=== PATIENT | male | born 1960 | race Caucasian/White ===

== ENCOUNTER 2020-03-30 11:08 | Outpatient (REF) | payer MEDICARE, MEDICAID, SELFPAY ==
--- NOTE | 2020-04-01 09:54 | MHC.AU.P13 ---
Adult Audiological Evaluation Date of Visit: 03/30/20 Reason for Appointment: Patient has noticed difficulty hearing others in person, as well as on the television and the phone. 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 Has hearing been tested previously?: Previous Hearing Test Results: Hearing Handicap Inventory HHIE SCORE: 14 Based on HHIE score, patient has: Mild to moderate perceived hearing handicap Ear History: Ear Deformity: None Reported Recent Ear Drainage: None Reported Recent Ear Pain: None Reported Family History of Hearing Loss?: Yes: Grandfather, Aunt Recent Ear Infections: None Reported Ear Infections in Childhood: Both Ears History of Ear Wax Buildup: None Reported Previous Ear Surgery: None Reported Bothersome Tinnitus/Ringing/Noises in Ears: None Reported Ear used on the phone: Right Ear Blocked/Full Sensation in Ear(s): None Reported History of Occupational Noise Exposure: Yes History: History: No Medical History: Medical History: High Blood Pressure Otoscopy: Right Ear: Unremarkable Left Ear: Unremarkable Tympanometry: Right Ear: Normal Middle Ear System (Type A) Left Ear: Normal Middle Ear System (Type A) Screening Ipsilateral Reflex Probe Right Ear: Screening Ipsilateral Reflex Present at 1000 Hz Probe Left Ear: Screening Ipsilateral Reflex Present at 1000 Hz Otoacoustic Emissions: Frequency Range Used: 1.6-8 kHz Right Ear Results: Present 1.6-4.0 kHz, reduced/absent from 4.0-8.0 kHz Analysis: Reduced/Absent emissions suggest cochlear dysfunction Left Ear Results: Present 1.6-4.0 kHz, reduced/absent from 4.0-8.0 kHz Analysis: Reduced/Absent emissions suggest cochlear dysfunction Hearing Evaluation: Transducer(s) Used: Insert Earphones Method: Conventional Audiometry Stimuli Used: Pure Tones Right Ear: Description of Hearing: Overall normal hearing Left Ear: Description of Hearing: Overall normal hearing. Mild hearing loss at 8000 Hz Speech Recognition Threshold (SRT): Method Used: Recorded Lists Stimuli Used: Spondee Words Right Ear: 10 Left Ear: 15 Word Discrimination: Method: Recorded Lists Word Lists Used: NU-6 Right Ear: 100% at 55 dBHL Left Ear: 100% at 55 dBHL Most Comfortable Level (MCL): Right Ear: 55 dBHL Left Ear: 55 dBHL QuickSIN: SNR loss of 3 dB, which is within normal range Recommendations: Recommendations: Audiological re-evaluation in 2 years, or sooner if changes are noted. Diagnosis: Primary Diagnosis: H93.293 Abnormal Auditory Perception Services Performed: Services Performed: Comprehensive Audiological Evaluation (CPT 75896) Limited Otoacoustic Emissions (CPT 55793) Tympanometry (CPT 58802) Signature: Provider: Fazraneh Parr, CCC-A
== END 2020-03-30 11:09 | disposition home or self-care (01) ==
LOC: HO.SH 11:08
PROVIDERS: Visit Provider Internal Medicine
DX: H93.293 Other abnormal auditory perceptions, bilateral (principal)
CPT/HCPCS: 92557; 92567; 92587

== ENCOUNTER 2020-10-10 12:05 | Outpatient (REF) | payer OTHER, SELFPAY ==
[2020-10-10 14:06] LABS: Basophils Absolute Auto 0.1 X10*3/uL (0.0-0.2); Basophils Percent Auto 1.4 % (0-2); Eosinophils Absolute Auto 0.5 X10*3/uL (0.0-0.4); Eosinophils Percent Auto 8.3 % (0-4); Hemoglobin 15.7 g/dl (14.0-18.0); Imm Gran Abs Auto 0.01 X10*3/uL (0.00-0.03); Imm Gran Pct Auto 0.2 % (0.0-0.4); Lymphocytes Absolute Auto 1.8 X10*3/uL (1.2-4.9); Lymphocytes Percent Auto 28.8 % (20-40); MANUAL DIFF FLAG NO; Mean Corpuscular HGB Conc 34.1 g/dl (31.0-36.0); Mean Corpuscular Hemoglobin 33.5 pg (27.0-33.0); Mean Corpuscular Volume 98.3 fL (80-98); Mean Platelet Volume 9.7 fL (9.4-12.4); Monocytes Absolute Auto 1.3 X10*3/uL (0.1-1.2); Neutrophils Absolute Auto 2.6 X10*3/uL (2.0-8.3); Neutrophils Percent Auto 41.3 % (45-73); Platelet Count 323 X10*3/uL (160-400); Red Blood Count 4.68 X10*6/uL (4.60-5.80); Red Cell Distribution Width 12.9 % (11.0-16.0); White Blood Count 6.3 X10*3/uL (4.8-10.8)
[2020-10-10 14:41] LABS: Alanine Aminotransferase 56 U/L (0-40); Albumin Level 4.5 g/dL (3.5-5.0); Alkaline Phosphatase 106 U/L (39-117); Anion Gap 16 (12-20); Aspartate Amino Transferase 54 U/L (5-37); Bilirubin Total 1.1 mg/dL (0.0-1.0); Blood Urea Nitrogen 8 mg/dL (9-16); Calcium 10.1 mg/dL (8.4-10.2); Carbon Dioxide 25 mmol/L (22-29); Chloride 100 mmol/L (96-108); Cholesterol 249 mg/dL; Estimated Glomerular Filt Rate > 60; Glucose Fasting 103 mg/dL (60-99); HDL Cholesterol 58 mg/dL; LDL Cholesterol Calculated 174 mg/dl; Potassium 4.5 mmol/L (3.3-5.1); Sodium 136 mmol/L (135-145); Total Protein 7.9 g/dL (6.5-8.0); Triglycerides 85 mg/dL
== END 2020-10-10 12:06 | disposition home or self-care (01) ==
LOC: HO.LAB 12:05
PROVIDERS: PCP Internal Medicine; Visit Provider Internal Medicine
DX: I10 Essential (primary) hypertension (principal); E29.1 Testicular hypofunction; K21.9 Gastro-esophageal reflux disease without esophagitis; N40.0 Benign prostatic hyperplasia without lower urinary tract symptoms; F41.9 Anxiety disorder, unspecified; E66.3 Overweight
CPT/HCPCS: 36415; 80053; 80061; 85025

== ENCOUNTER 2020-12-01 10:08 | Outpatient (REF) | payer OTHER, SELFPAY ==
--- NOTE | 2020-12-01 11:34 | EMG_ITS ---
Left median and ulnar motor and sensory studies were performed. Left radial sensory study was performed and paraspinal muscles were tested. IMPRESSION: 1. Oxmh-rw-egamrjoi left median neuropathy across carpal tunnel. 2. Pozt-fy-emoyxwmo left ulnar neuropathy across cubital tunnel. MD GWEN Hinton/CESAR / [id number]
== END 2020-12-01 10:09 | disposition home or self-care (01) ==
LOC: HO.NEURO 10:08
PROVIDERS: Visit Provider Internal Medicine
DX: R20.0 Anesthesia of skin (principal)
CPT/HCPCS: 95886; 95909

== ENCOUNTER 2021-01-11 10:23 | Outpatient (REF) | payer OTHER, SELFPAY ==
[2021-01-11 11:14] LABS: Estimated Average Glucose 117 mg/dL; Hemoglobin A1c % 5.7 %
[2021-01-11 11:26] LABS: Alanine Aminotransferase 40 U/L (0-40); Albumin Level 4.5 g/dL (3.5-5.0); Alkaline Phosphatase 87 U/L (39-117); Anion Gap 12 (12-20); Aspartate Amino Transferase 43 U/L (5-37); Bilirubin Total 1.2 mg/dL (0.0-1.0); Blood Urea Nitrogen 6 mg/dL (9-16); Calcium 9.9 mg/dL (8.4-10.2); Carbon Dioxide 26 mmol/L (22-29); Chloride 100 mmol/L (96-108); Cholesterol 180 mg/dL; Estimated Glomerular Filt Rate > 60; Glucose Random 106 mg/dL (60-115); HDL Cholesterol 53 mg/dL; LDL Cholesterol Calculated 104 mg/dl; Potassium 4.4 mmol/L (3.3-5.1); Sodium 134 mmol/L (135-145); Total Protein 7.7 g/dL (6.5-8.0); Triglycerides 118 mg/dL
[2021-01-15 14:02] LABS: Testosterone, Free 112.6 pg/mL (35.0-155.0); Testosterone, Total 674 ng/dL (250-1100)
== END 2021-01-11 10:24 | disposition home or self-care (01) ==
LOC: HO.LAB 10:23
PROVIDERS: PCP Internal Medicine; Visit Provider Internal Medicine
DX: R79.89 Other specified abnormal findings of blood chemistry (principal); E78.00 Pure hypercholesterolemia, unspecified; R73.01 Impaired fasting glucose
CPT/HCPCS: 36415; 80053; 80061; 83036; 84402; 84403

== ENCOUNTER 2021-01-18 11:43 | Outpatient (REF) | payer OTHER, SELFPAY ==
--- NOTE | ~2021-01-18 | XR_ITS ---
EXAMINATION: XR HIP, RIGHT CLINICAL INFORMATION: Pain COMPARISON: None TECHNIQUE: Two views of the right hip. FINDINGS: Bone alignment is normal. No fracture or dislocation is seen. There is mild arthritis of the right hip joint with small osteophytes. Soft tissues are unremarkable. XR/XR hip RT min 2V IMPRESSION: Mild right hip arthritis.
== END 2021-01-18 11:44 | disposition home or self-care (01) ==
LOC: HO.XRAY 11:43
PROVIDERS: PCP Internal Medicine; Visit Provider Internal Medicine
DX: N40.1 Benign prostatic hyperplasia with lower urinary tract symptoms (principal); N13.8 Other obstructive and reflux uropathy; E29.1 Testicular hypofunction; N52.9 Male erectile dysfunction, unspecified; Z79.899 Other long term (current) drug therapy; M25.551 Pain in right hip
CPT/HCPCS: 73502; 99212

== ENCOUNTER → 2021-04-12 08:21 | Outpatient (BNVA) | payer OTHER, SELFPAY | PROVIDERS: PCP Internal Medicine; Visit Provider Internal Medicine | DX: M81.0 Age-related osteoporosis without current pathological fracture (principal); E29.1 Testicular hypofunction; E55.9 Vitamin D deficiency, unspecified | CPT/HCPCS: 99212 ==

== ENCOUNTER 2021-05-18 11:51 | Outpatient (REF) | payer OTHER, SELFPAY ==
[2021-05-18 14:15] LABS: Alanine Aminotransferase 56 U/L (0-40); Albumin Level 4.5 g/dL (3.5-5.0); Alkaline Phosphatase 85 U/L (39-117); Anion Gap 14 (12-20); Aspartate Amino Transferase 35 U/L (5-37); Bilirubin Total 0.7 mg/dL (0.0-1.0); Blood Urea Nitrogen 10 mg/dL (9-16); Calcium 9.5 mg/dL (8.4-10.2); Carbon Dioxide 25 mmol/L (22-29); Chloride 103 mmol/L (96-108); Estimated Glomerular Filt Rate > 60; Glucose Random 108 mg/dL (60-115); Phosphorus 3.5 mg/dL (2.7-4.5); Potassium 4.1 mmol/L (3.3-5.1); Sodium 138 mmol/L (135-145); Total Protein 7.8 g/dL (6.5-8.0)
[2021-05-18 14:36] LABS: Free T4 (Free Thyroxine) 0.84 ng/dL (0.71-1.85); Thyroid Stimulating Hormone 0.75 uIU/mL (0.32-4.0)
[2021-05-21 07:32] LABS: Follicle Stimulating Hormone 7.7 mIU/mL (1.6-8.0); Lutenizing Hormone 5.3 mIU/mL (1.5-9.3)
[2021-05-22 15:32] LABS: Calcium (PTHI) 9.5 mg/dL (8.6-10.3); PTHI 44 pg/mL (14-64)
[2021-05-23 10:26] LABS: Sex Hormone Binding Globulin 31 nmol/L (22-77)
[2021-05-24 14:51] LABS: Testosterone, Free 51.5 pg/mL (35.0-155.0); Testosterone, Total 294 ng/dL (250-1100)
== END 2021-05-18 11:52 | disposition home or self-care (01) ==
LOC: HO.HMGCLDS 11:51
PROVIDERS: PCP Internal Medicine; Visit Provider Internal Medicine
DX: M81.0 Age-related osteoporosis without current pathological fracture (principal); E55.9 Vitamin D deficiency, unspecified
CPT/HCPCS: 36415; 80053; 82306; 83001; 83002; 83970; 84100; 84270; 84402; 84403; 84439; 84443

== ENCOUNTER 2021-05-19 10:27 | Outpatient (REF) | payer OTHER, SELFPAY ==
--- NOTE | ~2021-05-19 | MM_ITS ---
EXAMINATION: BONE DENSITOMETRY CLINICAL INDICATION: Age-related osteoporosis without current pathological fracture. COMPARISON: Baseline BD dated 01/06/2019, spine and left hip. TECHNIQUE: Using a Lumexis DXA System (software version: 13.1) manufactured by [employer], dual-energy x-ray absorptiometry was performed of the lumbar spine, left hip, and left forearm radius 33%. The images are of good technical quality. Summary results are attached. FINDINGS: AP SPINE L1-L2 (excluding L3 and L4): The data of L1-L4 has been changed to exclude the L3 and L4 vertebral bodies, because degenerative changes at these levels may cause overestimation of lumbar spine density. Current: BMD 0.828 g/cm2, Z-score -3.1, T-score -3.1, osteoporosis, 2.5% decrease from baseline (<5% change is not significant). Baseline: BMD 0.849 g/cm2. LEFT FEMUR, NECK: Current: BMD 0.818 g/cm2, Z-score -1.3, T-score -1.9, osteopenia. Baseline: BMD 0.806 g/cm2. LEFT FEMUR, TOTAL: Current: BMD 0.847 g/cm2, Z-score -1.5, T-score -1.8, osteopenia, 2.8% decrease from baseline (<5% change is not significant). Baseline: BMD 0.871 g/cm2. LEFT FOREARM RADIUS 33%: BMD 0.781 g/cm2, Z-score -1.8, T-score -2.1, osteopenia. IDENTIFIED RISK FACTORS: Osteoporosis, 3 or more alcohol drinks per day, recurrent falls, low calcium intake, history of fracture (adult), secondary osteoporosis. HISTORY OF FRACTURE: Ribs, tibia, foot. MEDICATIONS: Vitamin D, ERT/SERMS. MM/XR DEXA appendicular skeleton IMPRESSION: 1. DIAGNOSIS: Osteoporosis based on the lowest T-score value of -3.1 in the lumbar spine applying World Health Organization criteria. 2. 10-YEAR FRACTURE RISK PREDICTION, FRAX: According to the guidelines, FRAX calculation should only be performed on patients in the osteopenia bone density category. 3. Treatment Recommendations: NOF guidelines recommend consideration for treatment in postmenopausal women and men age 50 and older presenting with the following: -A hip or vertebral (clinical or morphometric) fracture. -T-score less than or equal to -2.5 at the femoral neck or spine after appropriate evaluation to exclude secondary causes. -Low bone mass at the hip or spine and a 10-year fracture probability by FRAX of greater than or equal to 3% for hip fracture or greater than or equal to 20% for major osteoporotic fracture based on the [place] adapted WHO algorithm. 4. Other Recommendations: All treatment decisions require clinical judgment and consideration of individual patient factors, including patient preferences, comorbidities, previous drug use, risk factors not captured in the FRAX model (e.g. frailty, falls, vitamin D deficiency, increased bone turnover, interval significant decline in bone density) and possible under or overestimation of fracture risk by FRAX. Additional medical evaluation for secondary cause of low bone mineral density may be appropriate. FUTURE SCAN RECOMMENDATION: People with diagnosed cases of osteoporosis or at high risk for fracture should have regular bone mineral density tests. For patients eligible for Medicare, routine testing is allowed once every 2 years. The testing frequency can be increased to one year for patients who have rapidly progressing disease, those who are receiving or discontinuing medical therapy to restore bone mass, or have additional risk factors.
== END 2021-05-19 10:28 | disposition home or self-care (01) ==
LOC: HO.MAMMO 10:27
PROVIDERS: PCP Internal Medicine; Visit Provider Internal Medicine
DX: M81.0 Age-related osteoporosis without current pathological fracture (principal); E83.51 Hypocalcemia; F10.20 Alcohol dependence, uncomplicated; Z91.81 History of falling; Z79.899 Other long term (current) drug therapy
CPT/HCPCS: 77081

== ENCOUNTER → 2021-05-24 08:51 | Outpatient (BNVA) | payer OTHER, SELFPAY | PROVIDERS: PCP Internal Medicine; Visit Provider Internal Medicine | DX: M81.0 Age-related osteoporosis without current pathological fracture (principal); E55.9 Vitamin D deficiency, unspecified | CPT/HCPCS: Q3014 ==

== ENCOUNTER 2021-07-24 13:57 | Outpatient (REF) | payer OTHER, SELFPAY ==
[2021-07-24 14:42] LABS: Hematocrit 46.9 % (42.0-52.0); Hemoglobin 15.9 g/dl (14.0-18.0); Mean Corpuscular HGB Conc 33.9 g/dl (31.0-36.0); Mean Corpuscular Hemoglobin 32.6 pg (27.0-33.0); Mean Corpuscular Volume 96.3 fL (80.0-98.0); Platelet Count 303 X10*3/uL (160-400); Red Blood Count 4.87 X10*6/uL (4.60-5.80); Red Cell Distribution Width 12.8 % (11.0-16.0); White Blood Count 6.6 X10*3/uL (4.8-10.8)
[2021-07-24 15:26] LABS: Prostate Specific Antigen 0.46 ng/mL (<0.05-4.0)
[2021-07-28 14:46] LABS: Testosterone, Total 390 ng/dL (250-1100)
== END 2021-07-24 13:58 | disposition home or self-care (01) ==
LOC: HO.LAB 13:57
PROVIDERS: Absent Provider Internal Medicine; PCP Internal Medicine; Visit Provider Urology
DX: Z12.5 Encounter for screening for malignant neoplasm of prostate (principal); N13.8 Other obstructive and reflux uropathy; N40.1 Benign prostatic hyperplasia with lower urinary tract symptoms; E29.1 Testicular hypofunction
CPT/HCPCS: 36415; 84153; 84403; 85027

== ENCOUNTER → 2021-07-26 11:02 | Outpatient (BNVA) | payer OTHER, SELFPAY | PROVIDERS: PCP Internal Medicine; Visit Provider Urology | DX: E29.1 Testicular hypofunction (principal) | CPT/HCPCS: 99212 ==

== ENCOUNTER → 2021-08-01 08:24 | Outpatient (BNVA) | payer OTHER, SELFPAY | PROVIDERS: PCP Internal Medicine; Visit Provider Urology | DX: Z71.89 Other specified counseling (principal) | CPT/HCPCS: 99211 ==

== ENCOUNTER → 2021-08-02 07:55 | Outpatient (BNVA) | payer OTHER, SELFPAY | PROVIDERS: PCP Internal Medicine; Visit Provider Internal Medicine | DX: M81.0 Age-related osteoporosis without current pathological fracture (principal); E55.9 Vitamin D deficiency, unspecified | CPT/HCPCS: 99212 ==

== ENCOUNTER 2021-08-02 09:09 | Outpatient (REF) | payer OTHER, SELFPAY ==
[2021-08-02 10:45] LABS: Alanine Aminotransferase 40 U/L (0-40); Albumin Level 4.6 g/dL (3.5-5.0); Alkaline Phosphatase 82 U/L (39-117); Anion Gap 13 (12-20); Aspartate Amino Transferase 35 U/L (5-37); Bilirubin Total 0.8 mg/dL (0.0-1.0); Blood Urea Nitrogen 6 mg/dL (9-16); Calcium 10.3 mg/dL (8.4-10.2); Carbon Dioxide 27 mmol/L (22-29); Chloride 101 mmol/L (96-108); Estimated Glomerular Filt Rate > 60; Glucose Random 95 mg/dL (60-115); Potassium 4.4 mmol/L (3.3-5.1); Sodium 137 mmol/L (135-145); Total Protein 8.1 g/dL (6.5-8.0)
[2021-08-02 11:10] LABS: Vitamin D 25-OH Total 35.3 ng/mL (>30)
[2021-08-03 15:07] LABS: Calcium (PTHI) 10.3 mg/dL (8.6-10.3); PTHI 28 pg/mL (14-64)
== END 2021-08-02 09:10 | disposition home or self-care (01) ==
LOC: HO.10HDL 09:09
PROVIDERS: Visit Provider Internal Medicine
DX: E55.9 Vitamin D deficiency, unspecified (principal); M81.0 Age-related osteoporosis without current pathological fracture
CPT/HCPCS: 36415; 80053; 82306; 83970

== ENCOUNTER 2021-08-12 11:09 | Outpatient (REF) | payer OTHER, SELFPAY ==
[2021-08-12 11:56] LABS: Creatinine, mg/dL 33.31
[2021-08-12 14:07] LABS: Total Volume 24 Hour Urine 3000 mL
[2021-08-14 16:56] LABS: Calcium, 24 Hr Urine 96 mg/24 h; Calcium/Creatinine Ratio 89 mg/g creat (30-210); Creatinine 24Hr Urine 1.08 g/24 h (0.50-2.15)
== END 2021-08-12 11:10 | disposition home or self-care (01) ==
LOC: HO.LNP 11:09
PROVIDERS: Visit Provider Internal Medicine
DX: M81.0 Age-related osteoporosis without current pathological fracture (principal)
CPT/HCPCS: 82340; 82570

== ENCOUNTER 2021-09-14 12:21 | Outpatient (REF) | payer OTHER, SELFPAY | END 2021-09-14 12:22 | disposition home or self-care (01) | LOC: HO.LAB 12:21 | PROVIDERS: PCP Internal Medicine; Visit Provider Internal Medicine | DX: Z13.89 Encounter for screening for other disorder (principal) ==

== ENCOUNTER 2021-09-25 11:12 | Outpatient (REF) | payer OTHER, SELFPAY ==
[2021-09-25 14:18] LABS: Alanine Aminotransferase 50 U/L (0-40); Albumin Level 4.5 g/dL (3.5-5.0); Alkaline Phosphatase 64 U/L (39-117); Anion Gap 13 (12-20); Aspartate Amino Transferase 46 U/L (5-37); Bilirubin Total 0.8 mg/dL (0.0-1.0); Blood Urea Nitrogen 5 mg/dL (9-16); Calcium 9.9 mg/dL (8.4-10.2); Carbon Dioxide 27 mmol/L (22-29); Chloride 102 mmol/L (96-108); Estimated Glomerular Filt Rate > 60; Glucose Random 84 mg/dL (60-115); Phosphorus 3.1 mg/dL (2.7-4.5); Potassium 4.8 mmol/L (3.3-5.1); Sodium 137 mmol/L (135-145); Total Protein 7.8 g/dL (6.5-8.0)
[2021-09-25 14:39] LABS: Vitamin D 25-OH Total 31.4 ng/mL (>30)
[2021-09-26 13:47] LABS: Calcium (PTHI) 9.8 mg/dL (8.6-10.3); PTHI 36 pg/mL (16-77)
== END 2021-09-25 11:13 | disposition home or self-care (01) ==
LOC: HO.HMGCLDS 11:12
PROVIDERS: PCP Internal Medicine; Visit Provider Internal Medicine
DX: M81.0 Age-related osteoporosis without current pathological fracture (principal); E55.9 Vitamin D deficiency, unspecified
CPT/HCPCS: 36415; 80053; 82306; 83735; 83970; 84100

== ENCOUNTER 2021-10-14 10:53 | Outpatient (REF) | payer OTHER, SELFPAY ==
[2021-10-14 11:05] LABS: MANUAL DIFF FLAG NO
[2021-10-14 11:38] LABS: Basophils Absolute Auto 0.1 X10*3/uL (0.0-0.2); Basophils Percent Auto 2.1 % (0-2); Eosinophils Absolute Auto 0.6 X10*3/uL (0.0-0.4); Eosinophils Percent Auto 12.1 % (0-4); Hematocrit 47.1 % (42.0-52.0); Imm Gran Abs Auto 0.01 X10*3/uL (0.00-0.03); Imm Gran Pct Auto 0.2 % (0.0-0.4); Lymphocytes Absolute Auto 1.9 X10*3/uL (1.2-4.9); Lymphocytes Percent Auto 36.2 % (20-40); Mean Corpuscular Hemoglobin 32.1 pg (27.0-33.0); Mean Corpuscular Volume 94.4 fL (80.0-98.0); Mean Platelet Volume 8.9 fL (9.4-12.4); Monocytes Absolute Auto 1.1 X10*3/uL (0.1-1.2); Neutrophils Absolute Auto 1.5 x10*3/uL (2.0-8.3); Neutrophils Percent Auto 28.4 % (45-73); Platelet Count 282 X10*3/uL (160-400); Red Blood Count 4.99 X10*6/uL (4.60-5.80); Red Cell Distribution Width 13.6 % (11.0-16.0); SCAN SMEAR FLAG 1; White Blood Count 5.1 X10*3/uL (4.8-10.8)
[2021-10-14 12:07] LABS: Alanine Aminotransferase 44 U/L (0-40); Albumin Level 4.4 g/dL (3.5-5.0); Alkaline Phosphatase 73 U/L (39-117); Anion Gap 14 (12-20); Aspartate Amino Transferase 51 U/L (5-37); Bilirubin Total 0.8 mg/dL (0.0-1.0); Blood Urea Nitrogen 5 mg/dL (9-16); Calcium 9.6 mg/dL (8.4-10.2); Carbon Dioxide 27 mmol/L (22-29); Chloride 100 mmol/L (96-108); Cholesterol 149 mg/dL; Estimated Glomerular Filt Rate > 60; Glucose Random 97 mg/dL (60-115); HDL Cholesterol 55 mg/dL; LDL Cholesterol Calculated 78 mg/dl; Potassium 5.3 mmol/L (3.3-5.1); Sodium 136 mmol/L (135-145); Total Protein 7.7 g/dL (6.5-8.0); Triglycerides 82 mg/dL
[2021-10-14 12:14] LABS: Estimated Average Glucose 108 mg/dL; Hemoglobin A1C 152.2107 umol/L; Hemoglobin A1c % 5.4 %
[2021-10-14 12:29] LABS: Free T4 (Free Thyroxine) 0.91 ng/dL (0.71-1.85); Thyroid Stimulating Hormone 0.85 uIU/mL (0.32-4.0)
[2021-10-16 10:30] LABS: Folate 3.5 ng/mL (> or = 4.0); Vitamin B12 381 pg/mL (200-900)
== END 2021-10-14 10:54 | disposition home or self-care (01) ==
LOC: HO.LAB 10:53
PROVIDERS: PCP Internal Medicine; Visit Provider Internal Medicine
DX: E78.00 Pure hypercholesterolemia, unspecified (principal); R73.01 Impaired fasting glucose
CPT/HCPCS: 36415; 80053; 80061; 82607; 82746; 83036; 84439; 84443; 85025

== ENCOUNTER 2021-10-25 11:51 | Outpatient (REF) | payer OTHER, SELFPAY ==
[2021-10-25 13:36] LABS: Blood Urea Nitrogen 7 mg/dL (9-16); Estimated Glomerular Filt Rate > 60
== END 2021-10-25 11:52 | disposition home or self-care (01) ==
LOC: HO.10HDL 11:51
PROVIDERS: Visit Provider Internal Medicine
DX: M81.0 Age-related osteoporosis without current pathological fracture (principal)
CPT/HCPCS: 36415; 82565; 84520

== ENCOUNTER 2021-10-27 12:01 | Outpatient (REF) | payer OTHER, SELFPAY | END 2021-10-27 12:02 | disposition home or self-care (01) | LOC: HO.MDS 12:01 | PROVIDERS: Visit Provider Internal Medicine | DX: M81.0 Age-related osteoporosis without current pathological fracture (principal) | CPT/HCPCS: 96365; J3489 ==

== ENCOUNTER → 2021-12-07 12:17 | Outpatient (BNVA) | payer OTHER, SELFPAY | PROVIDERS: PCP Internal Medicine; Visit Provider Physician Assistant | DX: D12.6 Benign neoplasm of colon, unspecified (principal) | CPT/HCPCS: Q3014 ==

== ENCOUNTER 2022-01-24 11:31 | Outpatient (REF) | payer OTHER, SELFPAY ==
[2022-01-24 13:47] LABS: Basophils Absolute Auto 0.1 X10*3/uL (0.0-0.2); Basophils Percent Auto 1.6 % (0-2); Eosinophils Absolute Auto 0.2 X10*3/uL (0.0-0.4); Eosinophils Percent Auto 3.4 % (0-4); Hematocrit 50.5 % (42.0-52.0); Hemoglobin 17.1 g/dl (14.0-18.0); Imm Gran Abs Auto 0.02 X10*3/uL (0.00-0.03); Imm Gran Pct Auto 0.4 % (0.0-0.4); Lymphocytes Absolute Auto 1.8 X10*3/uL (1.2-4.9); Lymphocytes Percent Auto 31.5 % (20-40); MANUAL DIFF FLAG SCAN; Mean Corpuscular HGB Conc 33.9 g/dl (31.0-36.0); Mean Corpuscular Hemoglobin 30.2 pg (27.0-33.0); Mean Corpuscular Volume 89.2 fL (80.0-98.0); Mean Platelet Volume 9.6 fL (9.4-12.4); Monocytes Absolute Auto 1.2 X10*3/uL (0.1-1.2); Monocytes Percent Auto 21.6 % (2-11); Neutrophils Absolute Auto 2.3 x10*3/uL (2.0-8.3); Neutrophils Percent Auto 41.5 % (45-73); Platelet Count 278 X10*3/uL (160-400); Red Blood Count 5.66 X10*6/uL (4.60-5.80); Red Cell Distribution Width 16.3 % (11.0-16.0); SCAN SMEAR FLAG 1; White Blood Count 5.6 X10*3/uL (4.8-10.8)
[2022-01-24 14:10] LABS: SLIDE REVIEW VERIFIED
[2022-01-24 14:16] LABS: Alanine Aminotransferase 61 U/L (0-40); Albumin Level 4.6 g/dL (3.5-5.0); Alkaline Phosphatase 50 U/L (39-117); Anion Gap 14 (12-20); Aspartate Amino Transferase 48 U/L (5-37); Bilirubin Total 0.9 mg/dL (0.0-1.0); Blood Urea Nitrogen 6 mg/dL (9-16); Calcium 9.2 mg/dL (8.4-10.2); Carbon Dioxide 26 mmol/L (22-29); Chloride 96 mmol/L (96-108); Estimated Glomerular Filt Rate > 60; Glucose Random 98 mg/dL (60-115); Potassium 4.7 mmol/L (3.3-5.1); Sodium 131 mmol/L (135-145); Total Protein 8.1 g/dL (6.5-8.0)
[2022-01-24 14:39] LABS: PSA,Total (Free>4and<10) 0.52 ng/mL (0.00-4.00)
[2022-01-24 14:45] LABS: Folate > 20.0 ng/mL (> or = 4.0); Vitamin B12 447 pg/mL (200-900)
[2022-01-29 13:52] LABS: Testosterone, Free 66.9 pg/mL (35.0-155.0); Testosterone, Total 481 ng/dL (250-1100)
== END 2022-01-24 11:32 | disposition home or self-care (01) ==
LOC: HO.10HDL 11:31
PROVIDERS: Absent Provider Urology; Visit Provider Internal Medicine
DX: E29.1 Testicular hypofunction (principal); E53.8 Deficiency of other specified B group vitamins; Z12.5 Encounter for screening for malignant neoplasm of prostate
CPT/HCPCS: 36415; 80053; 82607; 82746; 84153; 84402; 84403; 85025

== ENCOUNTER → 2022-01-30 10:15 | Outpatient (BNVA) | payer OTHER, SELFPAY | PROVIDERS: PCP Internal Medicine; Visit Provider Urology | DX: N32.0 Bladder-neck obstruction (principal); F52.4 Premature ejaculation | CPT/HCPCS: 51798; 99212 ==

== ENCOUNTER → 2022-02-06 12:59 | Day surgery (SDC) | payer OTHER, SELFPAY ==
[2022-01-10 15:17] VITALS: BMI 30.9
--- NOTE | 2022-01-15 09:42 | HO.ANESPROP2 ---
HPI - Anesthesia Eval Consult details Narrative: 61yo M for Colonoscopy Hx polysubstance. Unknown last use. [facility] Active Problems Active Problems: All Active Problems (Updated 01/10/22 @ 15:10 by Renetta Rose RN) Hypogonadism (Acute) Sinusitis (Acute) Fatty liver (Acute) Annual physical exam (Acute) History of rotator cuff surgery (Acute) Low testosterone (Acute) Impaired fasting blood sugar (Acute) Left carpal tunnel syndrome (Acute) Neuropathy of left ulnar nerve at wrist (Acute) Right hip pain (Acute) Folic acid deficiency (Acute) Medicare annual wellness visit, initial (Acute) Generalized anxiety disorder (Acute) Colon cancer screening (Acute) Tubulovillous adenoma polyp of colon (Acute) Vitamin D deficiency (Acute) Hypogonadism male (Acute) Osteoporosis (Acute) BPH (benign prostatic hyperplasia) (Acute) Cholelithiasis (Acute) Hypertension (Acute) Hypercholesterolemia (Acute) Anxiety and depression (Acute) Polysubstance abuse (Acute) Asthma (Acute) Gout (Acute) Past Medical History Medical History (Updated 01/10/22 @ 15:10 by Renetta Rose RN) Anxiety and depression Asthma BPH (benign prostatic hyperplasia) Cholelithiasis Diverticulitis Erectile dysfunction Fatty liver Gout Hypercholesterolemia Hypertension Hypogonadism male Numbness of left hand Osteoporosis Polysubstance abuse Right rib fracture Rupture of left biceps tendon Tibial plateau fracture, right Trigger finger of right hand Vitamin D deficiency Family History Family History Mother Breast cancer Father Skin cancer Hypercholesterolemia Sister Depression Surgical History Surgical History (Updated 01/10/22 @ 15:17 by Renetta Rose RN) Ankle fracture, right H/O colonoscopy H/O knee surgery History of surgery on arm Hx of arthroscopy of left knee Hx of right knee surgery Hx of umbilical hernia repair Social History Social History (Updated 01/10/22 @ 15:14 by Renetta Rose RN) Housing: Apartment Alcohol intake: current Alcohol intake frequency: 0-2 drinks per day Patient Tobacco Use Status: Never used Tobacco e-Cigarette/Vaping Use: Never Used Healthcare Proxy: Yes (12/17/17) service: No Current occupational status: disabled Meds Allergies Allergy/AdvReac Type Severity Reaction Status Date / Time moxifloxacin [From AVELOX] Allergy Severe SEVERE Verified 12/07/21 12:18 MOUTH/GENITAL SORES nitrofurantoin Allergy Intermediate BLOATING, Verified 01/10/22 15:09 [NITROFURANTOIN] bloated Sulfa (Sulfonamide Allergy Unknown Unknown Verified 12/07/21 12:18 Antibiotics) Avelox Allergy Intermediate swelling Uncoded 01/10/22 15:09 SEASONAL ALLERGIES Allergy Mild RUNNY NOSE Uncoded 10/17/21 09:05 Home Medications Medication Instructions Recorded Confirmed Last Taken Type albuterol sulfate 90 mcg/actuation 2 puff inhalation Q4-6H PRN 05/10/20 01/10/22 Unknown History aerosol inhaler (ProAir HFA) Shortness Of Breath bupropion HCl 300 mg 24 hr tablet, 300 mg PO QAM 05/10/20 01/10/22 Unknown History extended release (Wellbutrin XL) lamotrigine 100 mg tablet 100 mg PO DAILY 05/10/20 01/10/22 Unknown History Exam Exam Date and Time: January 15, 2022 0942 Height,Weight and Vital Signs: Height 5 ft 8 in Weight 92.079 kg Pertinent Lab Results Pertinent Lab Results: Laboratory Tests 10/14/21 10/14/21 10/25/21 11:03 11:03 11:57 WBC 5.1 Hgb 16.0 Hct 47.1 Plt Count 282 Sodium 136 Potassium 5.3 H Chloride 100 Carbon Dioxide 27 BUN 7 L Creatinine 0.83 Assessment and Plan Assessment Anesthesia Assessment: Chart Reviewed
[2022-02-06 13:21] VITALS: BP 145/91; PULSE 75; RESP 18; TEMP 36.8; O2SAT 96; BMI 29.5
--- NOTE | 2022-02-06 13:21 | HO.ANESPROP2 ---
HPI - Anesthesia Eval Consult details Narrative: 61 yo male patient for colonoscopy. Patient states had cocaine within last couple of days. Urine toxicology screen positive (H) for cocaine. Procedure cancelled. Dr Negron spoke with patient. Patient to reschedule. PMF Active Problems Active Problems: All Active Problems (Updated 01/30/22 @ 10:47 by Zach Huerta MD) Premature ejaculation (Acute) Bladder outlet obstruction (Acute) Alcohol abuse (Acute) Hypogonadism (Acute) Sinusitis (Acute) Fatty liver (Acute) Annual physical exam (Acute) History of rotator cuff surgery (Acute) Impaired fasting blood sugar (Acute) Left carpal tunnel syndrome (Acute) Neuropathy of left ulnar nerve at wrist (Acute) Right hip pain (Acute) Folic acid deficiency (Acute) Medicare annual wellness visit, initial (Acute) Generalized anxiety disorder (Acute) Colon cancer screening (Acute) Tubulovillous adenoma polyp of colon (Acute) Vitamin D deficiency (Acute) Osteoporosis (Acute) BPH (benign prostatic hyperplasia) (Acute) Cholelithiasis (Acute) Hypertension (Acute) Hypercholesterolemia (Acute) Polysubstance abuse (Acute) Asthma (Acute) Gout (Acute) Past Medical History Medical History Asthma BPH (benign prostatic hyperplasia) Cholelithiasis Diverticulitis Erectile dysfunction Fatty liver Gout Hypercholesterolemia Hypertension Numbness of left hand Osteoporosis Polysubstance abuse Right rib fracture Rupture of left biceps tendon Tibial plateau fracture, right Trigger finger of right hand Vitamin D deficiency Family History Family History Mother Breast cancer Father Skin cancer Hypercholesterolemia Sister Depression Surgical History Surgical History Ankle fracture, right H/O colonoscopy H/O knee surgery History of surgery on arm Hx of arthroscopy of left knee Hx of right knee surgery Hx of umbilical hernia repair Social History Social History Housing: Apartment Alcohol intake: current Alcohol intake frequency: 0-2 drinks per day Patient Tobacco Use Status: Never used Tobacco e-Cigarette/Vaping Use: Never Used Use of substances other than those prescribed or required for medical reasons: Yes Substance Use Type Other:: cocaine on saturday Are you DNR?: No Advance Directives: No Advance Directives Information Provided: Yes Healthcare Proxy: Yes (12/17/17) service: No Current occupational status: disabled Cognitive needs: No Hearing needs: No Vision needs: No Meds Allergies Allergy/AdvReac Type Severity Reaction Status Date / Time moxifloxacin [From AVELOX] Allergy Severe SEVERE Verified 01/29/22 13:34 MOUTH/GENITAL SORES nitrofurantoin Allergy Intermediate BLOATING, Verified 01/29/22 13:34 [NITROFURANTOIN] bloated Sulfa (Sulfonamide Allergy Unknown Unknown Verified 01/29/22 13:34 Antibiotics) Avelox Allergy Intermediate swelling Uncoded 01/29/22 13:34 SEASONAL ALLERGIES Allergy Mild RUNNY NOSE Uncoded 01/29/22 13:34 Active Medications: Current Medications Albuterol Sulfate (Albuterol Sulfate (0.083%) 2.5 Mg/3 Ml Vial.Neb) 2.5 mg INHALE ONCE PRN PRN Reason: Shortness of Breath/Wheezing Lactated Ringer's (Lr) 1,000 mls @ 100 mls/hr IVCONT .Q10H [facility] Home Medications Medication Instructions Recorded Confirmed Last Taken Type albuterol sulfate 90 mcg/actuation 2 puff inhalation Q4-6H PRN 05/10/20 01/10/22 Unknown History aerosol inhaler (ProAir HFA) Shortness Of Breath bupropion HCl 300 mg 24 hr tablet, 300 mg PO QAM 05/10/20 01/10/22 Unknown History extended release (Wellbutrin XL) lamotrigine 100 mg tablet 100 mg PO DAILY 05/10/20 01/10/22 Unknown History Exam Exam Date and Time: February 06, 2022 1321 Height,Weight and Vital Signs: Height 5 ft 8 in Weight 92.079 kg
--- NOTE | 2022-02-06 13:37 | MHC.SHP ---
Pre-Procedural Eval Section A Date of Service: 02/06/22 Section B Chief Complaint: Benign neoplasm of colon, unspecified Relevant Family History (Specify if Yes): No Relevant Social History: Alcohol Use Present Medications: see Short Stay Collaborative assessment Medical History: Significant History (Diverticulitis Erectile dysfunction Fatty liver Numbness of left hand Right rib fracture Rupture of left biceps tendon Tibial plateau fracture, right Trigger finger of right hand) History of Previous Operations: Relevant previous surgery/procedure and date(s) (Ankle fracture, right H/O knee surgery History of surgery on arm) Allergies: Allergies Allergy/AdvReac Type Severity Reaction Status Date / Time moxifloxacin [From AVELOX] Allergy Severe SEVERE Verified 01/29/22 13:34 MOUTH/GENITAL SORES nitrofurantoin Allergy Intermediate BLOATING, Verified 01/29/22 13:34 [NITROFURANTOIN] bloated Sulfa (Sulfonamide Allergy Unknown Unknown Verified 01/29/22 13:34 Antibiotics) Avelox Allergy Intermediate swelling Uncoded 01/29/22 13:34 SEASONAL ALLERGIES Allergy Mild RUNNY NOSE Uncoded 01/29/22 13:34 Review of Systems Sugical H&P ROS: Negative: Constitution, Cardiovascular, Respiratory, Neurological, Psychiatric, Hem-Onc, Allergic/Immunologic, Gastrointestinal, Genitourinary, Musculoskeletal, Integumentary, Endocrine and Eyes/Ears/Nose/Throat Exam Surgical H&P Exam: Normal: HEENT, Normal: Heart, Normal: Lungs, Normal: Extremities, Normal: Abdomen, Normal: Skin and Normal: Neurological Plan Diagnosis/Plan: Unchanged I have reviewed the history and physical and performed a pertinent physical examination on my patient. No changes have occurred unless specified.
[2022-02-06 13:39] LABS: Amphetamine Screen Urine Not Detected (Not Detect); Barbiturates, Urine Not Detected (Not Detect); Benzodiazepines Screen Urine Not Detected (Not Detect); Cannabinoid Screen Urine Not Detected (Not Detect); Cocaine Screen Urine POSITIVE (Not Detect); Fentanyl, urine Not Detected (Not Detect); Opiate Screen Urine Not Detected (Not Detect); Phencyclidine Screen Urine Not Detected (Not Detect)
[2022-02-06 13:41] VITALS: BMI 29.5
--- NOTE | 2022-02-06 13:46 | PC.NURSE ---
pt admitted to 4-5 lines of snorted cocaine. utox + cocaine. no iv started pending utox. case cancelled. pt dressed and ambulated down to lobby to await ride.
== END ==
PROVIDERS: Nurse Practitioner; PCP Internal Medicine; Visit Provider Internal Medicine Gastroenterology
DX: Z12.11 Encounter for screening for malignant neoplasm of colon (principal); Z53.8 Procedure and treatment not carried out for other reasons; F14.90 Cocaine use, unspecified, uncomplicated
CPT/HCPCS: 80307

== ENCOUNTER 2022-05-04 09:42 | Outpatient (REF) | payer OTHER, SELFPAY ==
[2022-05-04 10:24] LABS: MANUAL DIFF FLAG NO
[2022-05-04 10:28] LABS: Basophils Absolute Auto 0.1 X10*3/uL (0.0-0.2); Eosinophils Absolute Auto 0.5 X10*3/uL (0.0-0.4); Eosinophils Percent Auto 9.6 % (0-4); Hematocrit 49.9 % (42.0-52.0); Hemoglobin 16.9 g/dl (14.0-18.0); Imm Gran Abs Auto 0.01 X10*3/uL (0.00-0.03); Imm Gran Pct Auto 0.2 % (0.0-0.4); Lymphocytes Absolute Auto 1.7 X10*3/uL (1.2-4.9); Lymphocytes Percent Auto 31.5 % (20-40); Mean Corpuscular HGB Conc 33.9 g/dl (31.0-36.0); Mean Corpuscular Hemoglobin 32.4 pg (27.0-33.0); Mean Corpuscular Volume 95.6 fL (80.0-98.0); Mean Platelet Volume 9.3 fL (9.4-12.4); Monocytes Percent Auto 17.6 % (2-11); Neutrophils Absolute Auto 2.2 x10*3/uL (2.0-8.3); Neutrophils Percent Auto 39.1 % (45-73); Platelet Count 252 X10*3/uL (160-400); Red Blood Count 5.22 X10*6/uL (4.60-5.80); Red Cell Distribution Width 14.1 % (11.0-16.0); White Blood Count 5.5 X10*3/uL (4.8-10.8)
[2022-05-04 11:31] LABS: Alanine Aminotransferase 48 U/L (0-40); Albumin Level 4.5 g/dL (3.5-5.0); Alkaline Phosphatase 55 U/L (39-117); Anion Gap 14 (12-20); Aspartate Amino Transferase 46 U/L (5-37); Bilirubin Total 0.9 mg/dL (0.0-1.0); Blood Urea Nitrogen 7 mg/dL (9-16); Calcium 9.7 mg/dL (8.4-10.2); Carbon Dioxide 28 mmol/L (22-29); Chloride 99 mmol/L (96-108); Estimated Glomerular Filt Rate > 60; Glucose Random 106 mg/dL (60-115); Potassium 4.6 mmol/L (3.3-5.1); Sodium 136 mmol/L (135-145); Total Protein 7.8 g/dL (6.5-8.0)
[2022-05-04 11:38] LABS: Alanine Aminotransferase 48 U/L (0-40); Albumin Level 4.5 g/dL (3.5-5.0); Alkaline Phosphatase 56 U/L (39-117); Anion Gap 12 (12-20); Aspartate Amino Transferase 46 U/L (5-37); Bilirubin Total 0.9 mg/dL (0.0-1.0); Blood Urea Nitrogen 6 mg/dL (9-16); Calcium 9.8 mg/dL (8.4-10.2); Carbon Dioxide 29 mmol/L (22-29); Chloride 99 mmol/L (96-108); Cholesterol 154 mg/dL; Estimated Glomerular Filt Rate > 60; Free T4 (Free Thyroxine) 0.92 ng/dL (0.71-1.85); Glucose Random 106 mg/dL (60-115); HDL Cholesterol 56 mg/dL; LDL Cholesterol Calculated 88 mg/dl; Phosphorus 3.3 mg/dL (2.7-4.5); Potassium 4.3 mmol/L (3.3-5.1); Sodium 136 mmol/L (135-145); Thyroid Stimulating Hormone 0.95 uIU/mL (0.32-4.0); Total Protein 7.9 g/dL (6.5-8.0); Triglycerides 51 mg/dL
[2022-05-04 11:46] LABS: Folate > 20.0 ng/mL (> or = 4.0); Vitamin B12 437 pg/mL (200-900)
[2022-05-06 10:03] LABS: Calcium (PTHI) 9.5 mg/dL (8.6-10.3); PTHI 42 pg/mL (16-77)
[2022-05-10 07:18] LABS: N-Telopeptide 16 (9-60); NTXCreaRU 92 mg/dL (20-320)
[2022-05-14 09:05] LABS: Testosterone, Total 560
[2022-05-16 09:32] LABS: Alkaline Phosphatase Bone 11.4
== END 2022-05-04 09:43 | disposition home or self-care (01) ==
LOC: HO.10HDL 09:42
PROVIDERS: Urology; Absent Provider Internal Medicine; Visit Provider Internal Medicine
DX: E29.1 Testicular hypofunction (principal); N32.0 Bladder-neck obstruction; M81.0 Age-related osteoporosis without current pathological fracture; E55.9 Vitamin D deficiency, unspecified; E53.8 Deficiency of other specified B group vitamins
CPT/HCPCS: 36415; 80053; 80061; 82306; 82523; 82607; 82746; 83970; 84075; 84100; 84403; 84439; 84443; 85025

== ENCOUNTER → 2022-05-07 08:05 | Outpatient (BNVA) | payer OTHER, SELFPAY | PROVIDERS: PCP Internal Medicine; Visit Provider Internal Medicine | DX: M81.0 Age-related osteoporosis without current pathological fracture (principal); E55.9 Vitamin D deficiency, unspecified | CPT/HCPCS: 99212 ==

== ENCOUNTER 2022-09-27 09:59 | Outpatient (REF) | payer OTHER, SELFPAY ==
[2022-09-27 11:27] LABS: MANUAL DIFF FLAG NO
[2022-09-27 12:06] LABS: Basophils Absolute Auto 0.1 X10*3/uL (0.0-0.2); Basophils Percent Auto 2.3 % (0-2); Eosinophils Absolute Auto 0.4 X10*3/uL (0.0-0.4); Eosinophils Percent Auto 8.6 % (0-4); Hematocrit 48.6 % (42.0-52.0); Hemoglobin 16.5 g/dl (14.0-18.0); Lymphocytes Absolute Auto 1.8 X10*3/uL (1.2-4.9); Lymphocytes Percent Auto 37.7 % (20-40); Mean Corpuscular Hemoglobin 32.4 pg (27.0-33.0); Mean Corpuscular Volume 95.3 fL (80.0-98.0); Mean Platelet Volume 9.5 fL (9.4-12.4); Monocytes Absolute Auto 0.9 X10*3/uL (0.1-1.2); Monocytes Percent Auto 18.2 % (2-11); Neutrophils Absolute Auto 1.6 x10*3/uL (2.0-8.3); Neutrophils Percent Auto 33.2 % (45-73); Platelet Count 269 X10*3/uL (160-400); Red Cell Distribution Width 13.8 % (11.0-16.0); White Blood Count 4.8 X10*3/uL (4.8-10.8)
[2022-09-27 12:28] LABS: Prostate Specific Antigen 0.82 ng/mL (<0.05-4.0)
== END 2022-09-27 10:00 | disposition home or self-care (01) ==
LOC: HO.HMGCLDS 09:59
PROVIDERS: PCP Internal Medicine; Visit Provider Urology
DX: N32.0 Bladder-neck obstruction (principal); E53.8 Deficiency of other specified B group vitamins; Z12.5 Encounter for screening for malignant neoplasm of prostate
CPT/HCPCS: 36415; 84153; 85025

== ENCOUNTER → 2022-10-12 08:37 | Outpatient (BNVA) | payer OTHER, SELFPAY | PROVIDERS: PCP Internal Medicine; Visit Provider Urology | DX: E29.1 Testicular hypofunction (principal) | CPT/HCPCS: 99212 ==

== ENCOUNTER 2022-10-25 12:24 | Outpatient (REF) | payer OTHER, SELFPAY ==
[2022-10-25 14:32] LABS: Creatinine, mg/dL 35.95
[2022-10-25 16:37] LABS: Creatinine, 24Hr Urine 1.1 G/Day (1.0-2.0); Total Volume 24 Hour Urine 3025 mL
[2022-10-27 17:23] LABS: Calcium, 24 Hr Urine 212 mg/24 h; Calcium/Creatinine Ratio 184 mg/g creat (30-210); Creatinine 24Hr Urine 1.15 g/24 h (0.50-2.15)
[2022-11-02 05:39] LABS: N-Telopeptide 10 (see note); NTXCreaRU 73 mg/dL (20-320)
== END 2022-10-25 12:25 | disposition home or self-care (01) ==
LOC: HO.LNP 12:24
PROVIDERS: Visit Provider Internal Medicine
DX: M81.0 Age-related osteoporosis without current pathological fracture (principal)
CPT/HCPCS: 82340; 82523; 82570

== ENCOUNTER → 2022-11-05 08:41 | Outpatient (BNVA) | payer OTHER, SELFPAY | PROVIDERS: PCP Internal Medicine; Visit Provider Internal Medicine | DX: M81.0 Age-related osteoporosis without current pathological fracture (principal); E55.9 Vitamin D deficiency, unspecified | CPT/HCPCS: 99212 ==

== ENCOUNTER 2022-11-05 09:16 | Outpatient (REF) | payer OTHER, SELFPAY ==
[2022-11-05 11:32] LABS: Alanine Aminotransferase 76 U/L (0-40); Albumin Level 4.3 g/dL (3.5-5.0); Alkaline Phosphatase 58 U/L (39-117); Anion Gap 13 (12-20); Aspartate Amino Transferase 47 U/L (5-37); Bilirubin Total 1.1 mg/dL (0.0-1.0); Blood Urea Nitrogen 9 mg/dL (9-16); Calcium 9.5 mg/dL (8.4-10.2); Carbon Dioxide 29 mmol/L (22-29); Chloride 100 mmol/L (96-108); Estimated Glomerular Filt Rate > 60; Glucose Random 112 mg/dL (60-115); Potassium 4.5 mmol/L (3.3-5.1); Sodium 137 mmol/L (135-145); Total Protein 7.5 g/dL (6.5-8.0)
[2022-11-05 11:51] LABS: Vitamin D 25-OH Total 33.8 ng/mL (>30)
[2022-11-06 18:54] LABS: Calcium (PTHI) 9.3 mg/dL (8.6-10.3); PTHI 40 pg/mL (16-77)
[2022-11-13 20:28] LABS: N-Telopeptide 20 (see note); NTXCreaRU 129 mg/dL (20-320)
== END 2022-11-05 09:17 | disposition home or self-care (01) ==
LOC: HO.10HDL 09:16
PROVIDERS: Visit Provider Internal Medicine
DX: E55.9 Vitamin D deficiency, unspecified (principal); M81.0 Age-related osteoporosis without current pathological fracture
CPT/HCPCS: 36415; 80053; 82306; 82523; 83970; 84100

== ENCOUNTER 2023-01-02 08:25 | Outpatient (AMB) | payer OTHER, SELFPAY ==
[2023-01-02 08:28] VITALS: BP 124/90; BMI 28.4
--- NOTE | 2023-01-02 08:28 | MHC.PC.OV ---
Vital Signs 01/02/23 08:28 Height 5 ft 9 in Weight 192 lb BMI 28.4 BP 124/90 H Blood Pressure Location Rt brachial Position Sitting Intake Visit Reasons: sciatica, depression unable to sleep Intake Note: Patient here for sciatica, depression trouble sleeping, adhd Books Binder Required: No Accompanied by: Self / Same As Patient Allergies moxifloxacin [From AVELOX] Allergy (Severe, Verified 01/02/23 08:48) SEVERE MOUTH/GENITAL SORES nitrofurantoin [NITROFURANTOIN] Allergy (Intermediate, Verified 01/02/23 08:48) BLOATING, bloated Sulfa (Sulfonamide Antibiotics) Allergy (Unknown, Verified 01/02/23 08:48) Unknown Avelox Allergy (Intermediate, Uncoded 11/05/22 08:49) swelling SEASONAL ALLERGIES Allergy (Mild, Uncoded 11/05/22 08:49) RUNNY NOSE Medication List - Last Reconciled 01/02/23 by Montez Livingston PA-C albuterol sulfate 90 mcg/actuation (ProAir HFA) 2 puffs inhalation Q4-6H PRN amlodipine 10 mg PO DAILY atorvastatin 10 mg PO BEDTIME bisacodyl (Dulcolax (bisacodyl)) 10 mg (2 x 5 mg) PO ONCE 2 days bupropion HCl (Wellbutrin XL) 300 mg PO QAM calcium carbonate 600 mg PO BID 30 days cholecalciferol (vitamin D3) 50 mcg PO DAILY fluticasone propionate 50 mcg/actuation (Allergy Relief (fluticasone)) 2 sprays intranasal DAILY fluticasone propionate 110 mcg/actuation (Flovent HFA) 2 puffs inhalation BID folic acid 1 mg PO DAILY lamotrigine 100 mg PO DAILY lisinopril 40 mg PO DAILY needle (disp) 22 G (BD Regular Bevel Sidney) As directed needle (disp) 25 gauge (BD Regular Bevel Sidney) As directed - for testosterone subcutaneous injection omeprazole 20 mg PO DAILY paroxetine HCl 10 mg PO QAM 90 days polyethylene glycol 3350 (Miralax) 238 grams PO ONCE 1 day sildenafil 100 mg PO DAILY PRN 30 days syringe (disposable) (BD Luer-Sorin Syringe) Testosterone injection weekly tadalafil 5 mg PO DAILY 90 days testosterone cypionate (Depo-Testosterone) 80 mg (0.4 mL) subcut QWEEK 4 weeks thiamine HCl (vitamin B1) (Vitamin B-1) 100 mg PO DAILY Tobacco use date assessed: 01/02/23 Dental Screening Dental Screen Date: 01/02/23 Did you have a dental visit in the last 12 months?: Yes Did you have a dental problem in the last 6 months where you did not have access to dental care?: No Was dental information given to patient?: Patient has dentist HPI sciatica, depression unable to sleep HPI Details Patient is a 62-year-old male here today for problem visit. This the 1st time I am meeting this 62-year-old male with past medical history significant for hypogonadism, hyperlipidemia, impaired fasting blood sugars, osteoporosis, major depressive disorder, ADHD alcohol use disorder. Reports having lower spine pain with radiculopathy down right lower extremity. Also has been suffering with depression and sleeping issues. Has been using an orthotic and sleeping in different position that has help reduce his pain. He attributes some of his pain to possibly having osteoporosis. Also reports he has lost a psychiatrist whom has retired her left practice and needs PCP to now manage/prescribe his mental health medications. He does report having ADHD and feels he has been more inattentive as of late and asking for Adderall. [facility] Medical History (Updated 01/02/23 @ 08:56 by Montez Livingston PA-C) Asthma BPH (benign prostatic hyperplasia) Cholelithiasis Diverticulitis Erectile dysfunction Fatty liver Gout Hypercholesterolemia Hypertension Hypogonadism Hypogonadism male Numbness of left hand Osteoporosis Polysubstance abuse Right rib fracture Rupture of left biceps tendon Tibial plateau fracture, right Trigger finger of right hand Vitamin D deficiency Surgical History Ankle fracture, right H/O colonoscopy H/O knee surgery History of carpal tunnel surgery History of surgery on arm Hx of arthroscopy of left knee Hx of right knee surgery Hx of umbilical hernia repair Family History Mother Breast cancer Father Skin cancer Hypercholesterolemia Sister Depression Mental health disorder Social History Housing: Apartment Alcohol intake: current Alcohol intake frequency: 0-2 drinks per day Patient Tobacco Use Status: Never used Tobacco e-Cigarette/Vaping Use: Never Used Second Hand Smoke Exposure: No service: No Current occupational status: disabled Cognitive needs: No Hearing needs: No Vision needs: No Questionnaire PHQ-9 Over the last 2 weeks, how often have you been bothered by any of the following problems? 1. Little interest or pleasure in doing things: several days 2. Feeling down, depressed, or hopeless: several days 3. Trouble falling or staying asleep, or sleeping too much: nearly every day 4. Feeling tired or having little energy: nearly every day 5. Poor appetite or overeating: not at all 6. Feeling bad about yourself - or that you are a failure or have let yourself or your family down: not at all 7. Trouble concentrating on things, such as reading the newspaper or watching television: several days 8. Moving or speaking so slowly that other people could have noticed. Or the opposite - being so fidgety or restless that you have been moving around a lot more than usual: several days 9. Thoughts that you would be better off or of hurting yourself in some way: not at all Total score: 10 Source: Developed by Drs. Eliud Proctor, Christine Trinh, Reinaldo Henry and colleagues, with an educational yanely from [employer] Thrive Questionnaire Date Thrive assessed: 01/02/23 I am a: Patient What is your living situation today?: I have a steady place to live Within the past 12 months, did the food you bought not last and you didn't have the money to get more?: Never true Within the past 12 months, did you worry whether your food would run out before you got money to buy more?: Never true Do you have trouble paying for medicines?: No Do you have trouble getting transportation to medical appointments?: No Do you have trouble paying your heating and electricity bill?: No Do you have trouble taking care of your child, family member or friend?: No Do you have trouble with day-to-day activities such as bathing, preparing meals, shopping, managing finances, etc.?: No Are you currently unemployed and looking for a job?: No Are you interested in more education?: No Please select the resources that you would like help with: None Currently or been in a relationship where the following occur: no concerns reported AUDIT C Alcohol Use Questionnaire (AUDIT-C) 1. How often do you have a drink containing alcohol?: 4 or more times a week 2. How many drinks containing alcohol do you have on a typical day when you are drinking?: 1 or 2 3. How often do you have six or more drinks on one occasion?: Never Total Score: 4 KRISHAN-7 AMB Questionnaire KRISHAN-7 Date KRISHAN - 7 assessed: 01/02/23 Feeling nervous, anxious, or on edge: 2 = More than half the days Not being able to stop or control worryin = Several days Worrying too much about different things: 2 = More than half the days Trouble relaxin = Several days Being so restless that it is hard to sit still: 1 = Several days Becoming easily annoyed or irritable: 1 = Several days Feeling afraid as if something awful might happen: 0 = Not at all Total KRISHAN-7 score (0-4 normal; 5-9 mild; 10-14 moderate; 15-21 severe): 8 Source: Developed by Drs. Eliud Proctor, Christine Trinh, Reinaldo Henry and colleagues, with an educational yaenly from [employer] Review of Systems Const Denies headache(s) Eyes Denies loss of vision ENT Denies vertigo, Denies dizziness, Denies headache(s) and Denies sore throat Card Denies chest pain, Denies leg edema and Denies lightheadedness Resp Denies cough, Denies hemoptysis and Denies wheezing GI Denies abdominal pain, Denies melena, Denies constipation, Denies diarrhea and Denies vomiting Denies dysuria, Denies urinary frequency and Denies urinary urgency Musc Denies arthralgias, Denies joint swelling, Denies numbness and Denies tingling Neuro Denies Abnormal speech present, Denies behavioral changes, Denies vertigo, Denies dizziness, Denies headache(s), Denies loss of vision, Denies memory loss, Denies numbness and Denies tingling Psych Denies anxiety, Denies behavioral changes, Denies depression, Denies memory loss and Denies panic attacks Anderson/Lymph Denies easy bleeding and Denies easy bruising Aller/Immun Denies wheezing Physical exam (Primary Care) Vital Signs: Last Vital Signs BP 124/90 H 01/02/23 08:28 BMI result Body Mass Index 28.4 Tobacco/Smoking Status: Tobacco use Status Tobacco use date assessed 01/02/23 01/02/23 08:40 Patient Tobacco Use Status Never used Tobacco 01/02/23 08:40 e-Cigarette/Vaping Use Never Used 01/02/23 08:40 PHQ-9: PHQ-9 Score PHQ-9: Total score 10 01/02/23 08:50 Thrive Assessment: Date of Thrive Assessment Date Thrive assessed 01/02/23 01/02/23 08:40 Currently or been in a relationship where the following occur: no concerns reported Const General: healthy appearing, no acute distress, alert and awake Nutritional Appearance: well nourished Orientation/consciousness: oriented to person, oriented to place and oriented to time HENMT Ears: TM's normal bilaterally General nose exam: Normal nasal mucous membranes and turbinates present Eyes Conjunctivae: conjunctivae normal Sclerae: sclerae normal Pupils: Equal, round and reactive pupils present Neck Neck: Yes no lymphadenopathy and Yes no JVD Thyroid: Thyroid normal Carotids: no bruits Resp Effort & Inspection: normal respiratory effort and not tachypneic Auscultation: no crackles, no rales, no rhonchi and no wheezes Cardio Rate: regular rate Rhythm: regular rhythm Heart sounds: no murmurs and normal S1 and S2 GI Palpation (GI): Soft to palpation, nontender, no hepatomegaly and no splenomegaly Auscultation: normal bowel sounds Back/Spine/Pelvis Other: LIMITED RANGE OF MOTION OF LUMBAR SPINE DUE TO PAIN AND STIFFNESS. AMBULATING WITH AN ANTALGIC GAIT Skin General skin exam: no rashes or lesions noted and dry skin Neuro General: oriented to person, oriented to place and oriented to time Cranial nerves: Yes Equal, round and reactive pupils present Speech: No Abnormal speech present Gait exam (Neuro): Normal gait present Motor exam (neuro): no tremor noted Extrem Right upper extremity: full ROM Left upper extremity: full ROM Right lower extremity: full ROM; no edema Left lower extremity: full ROM; no edema Psych Mental Status: mental status grossly normal Speech and movement: Normal speech and movement present Affect: normal affect Attitude: cooperative Thought process: Normal thought process present Assessment and Plan Assessment & Plan (1) Lumbar radiculopathy, acute: Code(s): M54.16 - Radiculopathy, lumbar region Plan: Patient reports chronic history of lumbar spine pain though has been gotten worse over last several weeks. Has been using Tylenol and ibuprofen though has not been effective. Has been using an orthotic in his shoes and lying in certain positions which does help reduce his pain. He is concerned about his osteoporosis being in his back. Will send for x-rays of lumbar spine, pelvis and hips to evaluate for arthritis and or compression fractures in the lumbar spine. Advised he would likely benefit from physical therapy and perhaps seeing a back specialist due to his worsening lumbar spine symptoms with radiculopathy and patient agrees and understands. Usually goes through [facility] with all orthopedic complaints (2) ADHD: Code(s): F90.9 - Attention-deficit hyperactivity disorder, unspecified type Qualifiers: Attention deficit-hyperactivity disorder type: predominantly inattentive Qualified Code(s): F90.0 - Attention-deficit hyperactivity disorder, predominantly inattentive type Plan: As above patient has been diagnosed with ADHD by psychiatrist and was continued on Wellbutrin. He does not feel Wellbutrin is affective for his inattentiveness. Asking for Adderall though did not feel it is appropriate for this patient due to his previous history. Is willing to try Strattera 40 mg for his attention and focus. Orders: Orders XR lumbar spine 4V min Today M54.16 - Radiculopathy, lumbar region Comprehensive Hendricks. Panel Fast Today R73.01 - Impaired fasting glucose Lipid Panel Today I10 - Essential (primary) hypertension Microalbumin, Random (w Creat) Today I10 - Essential (primary) hypertension Complete Blood Count no Diff Today I10 - Essential (primary) hypertension XR pelvis 1-2V Today M54.16 - Radiculopathy, lumbar region Medications: New atomoxetine (Strattera) 40 mg PO DAILY 30 days 30 caps 1RF F90.0 - Attention-deficit hyperactivity disorder, predominantly inattentive type baclofen 10 mg PO BID 15 days 30 tabs 0RF M54.16 - Radiculopathy, lumbar region Changed From lamotrigine 100 mg PO DAILY F41.1 - Generalized anxiety disorder To lamotrigine 100 mg PO DAILY 90 days 90 tabs 1RF F41.1 - Generalized anxiety disorder Refilled bupropion HCl (Wellbutrin XL) 300 mg PO QAM 90 tabs 1RF F41.1 - Generalized anxiety disorder Coding Level of Care Code Est Pt Level 4 (34052) Diagnoses Lumbar radiculopathy, acute M54.16 ADHD F90.0 Attention deficit-hyperactivity disorder type: predominantly inattentive
== END 2023-01-02 09:18 | disposition home or self-care (01) ==
PROVIDERS: PCP Internal Medicine; Visit Provider Physician Assistant
DX: M54.16 Radiculopathy, lumbar region (principal); F90.0 Attention-deficit hyperactivity disorder, predominantly inattentive type
CPT/HCPCS: 99214

== ENCOUNTER 2023-01-02 09:25 | Outpatient (REF) | payer OTHER, SELFPAY ==
--- NOTE | ~2023-01-02 | XR_ITS ---
EXAMINATION: XR AP PELVIS AND BILATERAL HIPS, LUMBAR SPINE CLINICAL INFORMATION: Pain, radiculopathy lumbar region. COMPARISON: Right hip 01/18/2021. TECHNIQUE: 2 views of the right hip. 5 views of the lumbar spine. FINDINGS: Lumbar Spine: The bones are diffusely demineralized. Mild dextroscoliosis of the lumbar spine. Bones are diffusely demineralized. Facet arthritis in the lower lumbar spine Advanced lumbar spondylosis with datontxp-et-ebkxfl loss of disc space height and vacuum phenomenon notable at L3-L4, L4-L5 and L5-S1. Degenerative changes in the imaged lower thoracic spine. Atherosclerotic aortoiliac calcifications AP Pelvis and Bilateral Hips: The bones are diffusely demineralized. Moderate degenerative changes bilateral sacroiliac joints. Mild degenerative changes with small osteophytes in the bilateral hips. Bone alignment is preserved. The joint. XR/XR lumbar spine 4V min IMPRESSION: Advanced lumbar spondylosis is fjcvupaw-dn-ongwex at L3-L4, L4-L5 and L5-S1. Mild degenerative changes in the bilateral hips. Additional imaging with CT scan or MRI should be considered for better visualization as these modalities are much more sensitive for detection of fracture or other underlying pathology.
--- NOTE | ~2023-01-02 | XR_ITS ---
EXAMINATION: XR AP PELVIS AND BILATERAL HIPS, LUMBAR SPINE CLINICAL INFORMATION: Pain, radiculopathy lumbar region. COMPARISON: Right hip 01/18/2021. TECHNIQUE: 2 views of the right hip. 5 views of the lumbar spine. FINDINGS: Lumbar Spine: The bones are diffusely demineralized. Mild dextroscoliosis of the lumbar spine. Bones are diffusely demineralized. Facet arthritis in the lower lumbar spine Advanced lumbar spondylosis with ebuivpvq-vq-yvaule loss of disc space height and vacuum phenomenon notable at L3-L4, L4-L5 and L5-S1. Degenerative changes in the imaged lower thoracic spine. Atherosclerotic aortoiliac calcifications AP Pelvis and Bilateral Hips: The bones are diffusely demineralized. Moderate degenerative changes bilateral sacroiliac joints. Mild degenerative changes with small osteophytes in the bilateral hips. Bone alignment is preserved. The joint. XR/XR hip BI w PEL1V IMPRESSION: Advanced lumbar spondylosis is ntbuerhk-ut-qwixon at L3-L4, L4-L5 and L5-S1. Mild degenerative changes in the bilateral hips. Additional imaging with CT scan or MRI should be considered for better visualization as these modalities are much more sensitive for detection of fracture or other underlying pathology.
== END 2023-01-02 09:26 | disposition home or self-care (01) ==
LOC: HO.XRAY 09:25
PROVIDERS: PCP Internal Medicine; Visit Provider Physician Assistant
DX: M54.16 Radiculopathy, lumbar region (principal); M25.551 Pain in right hip; M25.552 Pain in left hip
CPT/HCPCS: 72110; 73521

== ENCOUNTER 2023-01-03 10:40 | Outpatient (REF) | payer OTHER, SELFPAY ==
[2023-01-03 13:56] LABS: Hematocrit 51.4 % (42.0-52.0); Hemoglobin 17.4 g/dl (14.0-18.0); Mean Corpuscular HGB Conc 33.9 g/dl (31.0-36.0); Mean Corpuscular Hemoglobin 32.2 pg (27.0-33.0); Mean Corpuscular Volume 95.2 fL (80.0-98.0); Mean Platelet Volume 10.2 fL (9.4-12.4); Platelet Count 292 X10*3/uL (160-400); White Blood Count 5.6 X10*3/uL (4.8-10.8)
[2023-01-03 14:33] LABS: Creatinine Urine 148.55 mg/dL
[2023-01-03 14:38] LABS: Alanine Aminotransferase 62 U/L (0-40); Albumin Level 4.3 g/dL (3.5-5.0); Alkaline Phosphatase 61 U/L (39-117); Anion Gap 13 (12-20); Aspartate Amino Transferase 52 U/L (5-37); Blood Urea Nitrogen 9 mg/dL (9-16); Calcium 9.6 mg/dL (8.4-10.2); Carbon Dioxide 27 mmol/L (22-29); Chloride 101 mmol/L (96-108); Cholesterol 222 mg/dL; Estimated Glomerular Filt Rate > 60; Glucose Fasting 96 mg/dL (60-99); HDL Cholesterol 50 mg/dL; LDL Cholesterol Calculated 153 mg/dl; Potassium 3.8 mmol/L (3.3-5.1); Sodium 137 mmol/L (135-145); Total Protein 7.8 g/dL (6.5-8.0); Triglycerides 97 mg/dL
== END 2023-01-03 10:41 | disposition home or self-care (01) ==
LOC: HO.10HDL 10:40
PROVIDERS: Visit Provider Physician Assistant
DX: I10 Essential (primary) hypertension (principal); R73.01 Impaired fasting glucose
CPT/HCPCS: 36415; 80053; 80061; 82043; 85027

== ENCOUNTER 2023-03-05 08:03 | Day surgery (SDC) | payer OTHER, SELFPAY ==
[2023-03-01 12:02] VITALS: BMI 28.4
--- NOTE | 2023-03-04 10:59 | HO.ANESPROP2 ---
Documented by User: Comfort Mckenzie NP 03/04/23 11:01 HPI - Anesthesia Eval Consult details Narrative: 62yo M for Colonoscopy Hx polysub. Procedure cx'd 2021 for positive Utox. PMFSH Active Problems Active Problems: All Active Problems (Updated 01/02/23 @ 08:56 by Montez Livingston PA-C) ADHD (Acute) Lumbar radiculopathy, acute (Acute) Hypogonadism in male (Acute) Conjunctivitis of both eyes (Acute) Premature ejaculation (Acute) Bladder outlet obstruction (Acute) Alcohol abuse (Acute) Sinusitis (Acute) Fatty liver (Acute) Annual physical exam (Acute) History of rotator cuff surgery (Acute) Impaired fasting blood sugar (Acute) Left carpal tunnel syndrome (Acute) Neuropathy of left ulnar nerve at wrist (Acute) Right hip pain (Acute) Folic acid deficiency (Acute) Medicare annual wellness visit, initial (Acute) Generalized anxiety disorder (Acute) Colon cancer screening (Acute) Tubulovillous adenoma polyp of colon (Acute) Vitamin D deficiency (Acute) Osteoporosis (Acute) BPH (benign prostatic hyperplasia) (Acute) Cholelithiasis (Acute) Hypertension (Acute) Hypercholesterolemia (Acute) Polysubstance abuse (Acute) Asthma (Acute) Gout (Acute) Past Medical History Medical History Vitamin D deficiency Hypogonadism male Numbness of left hand Trigger finger of right hand Rupture of left biceps tendon Right rib fracture Tibial plateau fracture, right Hypogonadism BPH (benign prostatic hyperplasia) Osteoporosis Erectile dysfunction Diverticulitis Cholelithiasis Hypertension Hypercholesterolemia Fatty liver Polysubstance abuse Asthma Gout Family History Family History Mother Breast cancer Father Skin cancer Hypercholesterolemia Sister Depression Mental health disorder Surgical History Surgical History History of carpal tunnel surgery H/O colonoscopy Hx of arthroscopy of left knee Hx of umbilical hernia repair Hx of right knee surgery History of surgery on arm H/O knee surgery Ankle fracture, right Social History Social History Housing: Apartment Alcohol intake: current Alcohol intake frequency: 0-2 drinks per day Patient Tobacco Use Status: Never used Tobacco e-Cigarette/Vaping Use: Never Used Second Hand Smoke Exposure: No Use of substances other than those prescribed or required for medical reasons: Yes Are you DNR?: No Advance Directives: No Advance Directives Information Provided: Yes Nutrition Risks: No Nutritional Risk service: No Current occupational status: disabled Cognitive needs: No Hearing needs: No Vision needs: No Meds Allergies Allergy/AdvReac Type Severity Reaction Status Date / Time moxifloxacin [From AVELOX] Allergy Severe SEVERE Verified 03/01/23 10:55 MOUTH/GENITAL SORES, swelling nitrofurantoin Allergy Intermediate BLOATING, Verified 01/02/23 08:48 [NITROFURANTOIN] bloated SEASONAL ALLERGIES Allergy Mild RUNNY NOSE Uncoded 11/05/22 08:49 Home Medications Medication Instructions Recorded Confirmed Last Taken Type albuterol sulfate 90 mcg/actuation 2 puff inhalation Q4-6H PRN 05/10/20 01/02/23 Unknown History aerosol inhaler (ProAir HFA) Shortness Of Breath oxycodone-acetaminophen 5 mg-325 1 tab PO Q4H PRN pain 03/05/23 03/05/23 Unknown History mg tablet Exam Exam Date and Time: March 04, 2023 1059 Height,Weight and Vital Signs: Height 5 ft 9 in Weight 87.09 kg Pertinent Lab Results Pertinent Lab Results: Laboratory Tests 01/03/23 10:45 WBC 5.6 Hgb 17.4 Hct 51.4 Plt Count 292 Sodium 137 Potassium 3.8 Chloride 101 Carbon Dioxide 27 BUN 9 Creatinine 0.88 Assessment and Plan Assessment Anesthesia Assessment: Chart Reviewed Documented by User: Justin Lobo MD 03/05/23 09:54 PMFSH Past Medical History Medical History Vitamin D deficiency Hypogonadism male Numbness of left hand Trigger finger of right hand Rupture of left biceps tendon Right rib fracture Tibial plateau fracture, right Hypogonadism BPH (benign prostatic hyperplasia) Osteoporosis Erectile dysfunction Diverticulitis Cholelithiasis Hypertension Hypercholesterolemia Fatty liver Polysubstance abuse Asthma Gout Family History Family History Mother Breast cancer Father Skin cancer Hypercholesterolemia Sister Depression Mental health disorder Family history of problems with anesthesia: No Surgical History Surgical History History of carpal tunnel surgery H/O colonoscopy Hx of arthroscopy of left knee Hx of umbilical hernia repair Hx of right knee surgery History of surgery on arm H/O knee surgery Ankle fracture, right History of Problems with Anesthesia: No Social History Social History Housing: Apartment Alcohol intake: current Alcohol intake frequency: 0-2 drinks per day Patient Tobacco Use Status: Never used Tobacco e-Cigarette/Vaping Use: Never Used Second Hand Smoke Exposure: No Use of substances other than those prescribed or required for medical reasons: Yes Are you DNR?: No Advance Directives: No Advance Directives Information Provided: Yes Nutrition Risks: No Nutritional Risk service: No Current occupational status: disabled Cognitive needs: No Hearing needs: No Vision needs: No Meds Allergies Allergy/AdvReac Type Severity Reaction Status Date / Time moxifloxacin [From AVELOX] Allergy Severe SEVERE Verified 03/01/23 10:55 MOUTH/GENITAL SORES, swelling nitrofurantoin Allergy Intermediate BLOATING, Verified 01/02/23 08:48 [NITROFURANTOIN] bloated SEASONAL ALLERGIES Allergy Mild RUNNY NOSE Uncoded 11/05/22 08:49 Home Medications Medication Instructions Recorded Confirmed Last Taken Type albuterol sulfate 90 mcg/actuation 2 puff inhalation Q4-6H PRN 05/10/20 01/02/23 Unknown History aerosol inhaler (ProAir HFA) Shortness Of Breath oxycodone-acetaminophen 5 mg-325 1 tab PO Q4H PRN pain 03/05/23 03/05/23 Unknown History mg tablet Exam Airway Mallampati Class: II TM Dist: >3cm Neck ROM: Full Loose/Missing/Broken Teeth: Yes Assessment and Plan Assessment Anesthesia Assessment: Anesthesia Plan Discussed Final Anesthetic Review Family History of Problems with Anesthesia: No History of Problems with Anesthesia: No NPO: Yes ASA Class: III Final Preanesthetic Review: No Changes in Pt Med Stat, Meds/Allgs Chart Reviewed, Consent Obtained/Reviewed and Anes Risks/Benef Reviewed Patient Risk: Intermediate Procedure Risk: Low Anesthetic Plan Anesthetic Plan: MAC: Disposition: Standard PACU
[2023-03-05 08:24] VITALS: BP 130/91; PULSE 94; RESP 16; TEMP 37.2; O2SAT 97
--- NOTE | 2023-03-05 08:49 | PC.NURSE ---
troponin sensitivity drawn per md link.
[2023-03-05 09:41] LABS: Troponin-I High Sensitivity < 2.7 ng/L (<3.5-35.0)
--- NOTE | 2023-03-05 10:33 | P.OP_ITS ---
Operative Note Operative Note Date of Service: 03/05/23 Narrative: Operative Information Procedure Description: Colonoscopy Indication: hx of colon polyps Anesthesia: MAC COLONOSCOPY Instrument: Olympus variable stiffness ADULT scope 190L Colonoscopy Monitoring: Vital signs and clinical assessment, continuous EKG monitoring, Pulse oximetry, Carbon Dioxide monitoring and blood pressure monitoring were done throughout the procedure. Colon withdrawal time was 23 minutes. Procedure: The patient was placed in the left lateral decubitis position and pre-procedure medications were administered. After a digital rectal examination of the ano-rectum, the video colonoscope was inserted into the rectum and advanced through the colon to the cecum/TI. The colonoscope was slowly withdrawn in a retrograde panoramic fashion and the colon mucosa was carefully examined including a retroflexed view of the rectum. Findings and interventions are described below. Procedure Difficulty: easy Findings: Terminal Ileum-normal Cecum: sessile polyp 10 mm lifted with eleview and removed with cold snare, x2 clips applied for hemostasis Ascending Colon: normal Transverse Colon - normal Descending Colon: 7-9 mm sessile polyp removed with cold forceps Sigmoid Colon: mild diverticulosis, juna ink tattoo noted in mid sigmoid Rectum: Retroflexion with medium sized internal hemorrhoids, grade I, 10-11 mm sessile polyp removed with cold snare Anorectum - normal Colon preparation: Colbert Bowel Preparation Scale Right colon; 2 Transverse colon: 2 Left colon; 2 (0 = Unprepared colon segment with mucosa not seen due to solid stool that cannot be cleared. 1 = Portion of mucosa of the colon segment seen, but other areas of the colon segment not well seen due to staining, residual stool and/or opaque liquid. 2 = Minor amount of residual staining, small fragments of stool and/or opaque liquid, but mucosa of colon segment seen well. 3 = Entire mucosa of colon segment seen well with no residual staining, small fragments of stool or opaque liquid) Impression and Post Procedure Diagnosis: polyps internal hemorrhoids diverticular disease Plan: High fiber diet leaflet Avoid straining at stool, epsom salts and sitz bath, anusol supps or cream Repeat Colonoscopy in 3-4 years or earlier if clinically indicated Above findings were reviewed with the patient and relevant handouts were provided if indicated.
[2023-03-05 10:40] VITALS: BP 120/87; PULSE 75; RESP 15; TEMP 36.9; O2SAT 98
[2023-03-05 10:55] VITALS: BP 128/89; PULSE 77; RESP 18; TEMP 36.3; O2SAT 99
== END 2023-03-05 11:43 | disposition home or self-care (01) ==
PROVIDERS: Internal Medicine; PCP Internal Medicine; Visit Provider Internal Medicine Gastroenterology
PROC: 0DJD8ZZ Inspection of Lower Intestinal Tract, Via Natural or Artificial Opening Endoscopic (ICD-10-PCS; CPT 45378; principal; 2023-03-05 09:30)
DX: Z12.11 Encounter for screening for malignant neoplasm of colon (principal); Z86.010 Personal history of colon polyps; D12.0 Benign neoplasm of cecum; D12.8 Benign neoplasm of rectum; K63.5 Polyp of colon; K57.30 Diverticulosis of large intestine without perforation or abscess without bleeding; K64.0 First degree hemorrhoids; Z87.19 Personal history of other diseases of the digestive system; K76.0 Fatty (change of) liver, not elsewhere classified; J45.909 Unspecified asthma, uncomplicated; N52.9 Male erectile dysfunction, unspecified; Z79.51 Long term (current) use of inhaled steroids; Z79.899 Other long term (current) drug therapy; Z88.1 Allergy status to other antibiotic agents; Z88.2 Allergy status to sulfonamides; Z88.8 Allergy status to other drugs, medicaments and biological substances; Z98.890 Other specified postprocedural states
CPT/HCPCS: 45385; 45380; 45381; 36415; 84484; 88305

== ENCOUNTER → 2023-03-05 08:03 | Outpatient (BNV) | payer OTHER, SELFPAY | PROVIDERS: PCP Internal Medicine; Visit Provider Internal Medicine Gastroenterology | DX: Z12.11 Encounter for screening for malignant neoplasm of colon (principal); Z86.010 Personal history of colon polyps; K63.5 Polyp of colon; D12.8 Benign neoplasm of rectum; D12.0 Benign neoplasm of cecum; K57.30 Diverticulosis of large intestine without perforation or abscess without bleeding; K64.9 Unspecified hemorrhoids | CPT/HCPCS: 45380; 45381; 45385 ==

== ENCOUNTER 2023-03-12 09:55 | Outpatient (REF) | payer OTHER, SELFPAY ==
[2023-03-12 10:37] LABS: Hematocrit 51.3 % (42.0-52.0); Hemoglobin 17.8 g/dl (14.0-18.0); Mean Corpuscular HGB Conc 34.7 g/dl (31.0-36.0); Mean Corpuscular Hemoglobin 33.1 pg (27.0-33.0); Mean Corpuscular Volume 95.5 fL (80.0-98.0); Mean Platelet Volume 9.4 fL (9.4-12.4); Platelet Count 270 X10*3/uL (160-400); Red Blood Count 5.37 X10*6/uL (4.60-5.80); Red Cell Distribution Width 13.2 % (11.0-16.0); White Blood Count 4.8 X10*3/uL (4.8-10.8)
[2023-03-12 11:21] LABS: Prostate Specific Antigen 0.97 ng/mL (<0.05-4.0)
[2023-03-14 16:53] LABS: Transglutaminase IgA <1.0 U/mL
== END 2023-03-12 09:56 | disposition home or self-care (01) ==
LOC: HO.LAB 09:55
PROVIDERS: Absent Provider Urology; PCP Internal Medicine; Visit Provider Internal Medicine
DX: Z12.5 Encounter for screening for malignant neoplasm of prostate (principal); E29.1 Testicular hypofunction; Z83.79 Family history of other diseases of the digestive system
CPT/HCPCS: 36415; 84153; 84403; 85027; 86364

== ENCOUNTER 2023-03-19 10:49 | Outpatient (AMB) | payer OTHER, SELFPAY ==
[2023-03-19 10:54] VITALS: BP 148/82; PULSE 89; O2SAT 98; BMI 28.1
--- NOTE | 2023-03-19 10:54 | MHC.PC.OV ---
Vital Signs 03/19/23 10:54 03/19/23 11:26 Height 5 ft 9 in Weight 190 lb BMI 28.1 BP 148/82 H 150/90 H Blood Pressure Location Lt brachial Lt brachial Position Sitting Sitting Pulse 89 Pulse Source Pulse Oximeter Pulse Oximetry (%) 98 Oxygen Delivery Method Room Air Intake Visit Reasons: follow up Allergies moxifloxacin [From AVELOX] Allergy (Severe, Verified 03/19/23 10:54) SEVERE MOUTH/GENITAL SORES, swelling nitrofurantoin [NITROFURANTOIN] Allergy (Intermediate, Verified 03/19/23 10:54) BLOATING, bloated SEASONAL ALLERGIES Allergy (Mild, Uncoded 03/19/23 10:54) RUNNY NOSE Tobacco use date assessed: 01/02/23 Dental Screening Dental Screen Date: 03/19/23 Did you have a dental visit in the last 12 months?: Yes Did you have a dental problem in the last 6 months where you did not have access to dental care?: No Was dental information given to patient?: Patient has dentist HPI follow up HPI Details 62-year-old male with a history of BPH hypertension hypercholesterolemia history of polysubstance abuse hypogonadism coming in for follow-up. Patient also has osteoporosis being taking care of by Endocrinology with Reclast. Patient last seen in April 2022. Patient had a recent colonoscopy 03/05/2023 having tubular adenoma with no high-grade dysplasia. X-rays in December showed advanced lumbar spondylosis moderate to marked L3-L4 L4-L5 L5 S1 mild degenerative changes on the hips. Patient was also seen by the nurse practitioner in December 2022 having the complaints of lower back pain and depression. Patient has been diagnosed has having ADHD also and the proof of of psychiatry evaluation couple of years ago and was asking for some treatment patient was started on Strattera. MRI done in [facility] and seeing PSS pain on both legs- given baclofen. PAtient admits not taking anxioty med - therapist is sick right and presently will be seeing another 1. Noted to have an elevated blood pressure but patient is in a lot of pain. Patient will be seeing the [facility] tomorrow. As for the x-ray that I have discussed about the results showing advanced disc height loss as well as marked lumbar spondylosis. Again MRI was done but I do not have the results. Discussed also about atherosclerosis discussed about eating healthy discussed about fluid hydration and to try to keep active and moving. [facility] Medical History (Updated 03/07/23 @ 17:44 by Lillian Atkinson MD) Vitamin D deficiency Hypogonadism male Numbness of left hand Trigger finger of right hand Rupture of left biceps tendon Right rib fracture Tibial plateau fracture, right Hypogonadism BPH (benign prostatic hyperplasia) Osteoporosis Erectile dysfunction Diverticulitis Cholelithiasis Hypertension Hypercholesterolemia Fatty liver Polysubstance abuse Asthma Gout Surgical History (Updated 03/14/23 @ 09:31 by Stefany Giordano) History of carpal tunnel surgery H/O colonoscopy Hx of arthroscopy of left knee Hx of umbilical hernia repair Hx of right knee surgery History of surgery on arm H/O knee surgery Ankle fracture, right Family History Mother Breast cancer Father Skin cancer Hypercholesterolemia Sister Depression Mental health disorder Social History Housing: Apartment Alcohol intake: current Alcohol intake frequency: 0-2 drinks per day Patient Tobacco Use Status: Never used Tobacco e-Cigarette/Vaping Use: Never Used Second Hand Smoke Exposure: No service: No Current occupational status: disabled Cognitive needs: No Hearing needs: No Vision needs: No Questionnaire PHQ-9 Over the last 2 weeks, how often have you been bothered by any of the following problems? 1. Little interest or pleasure in doing things: several days 2. Feeling down, depressed, or hopeless: several days 3. Trouble falling or staying asleep, or sleeping too much: nearly every day 4. Feeling tired or having little energy: nearly every day 5. Poor appetite or overeating: not at all 6. Feeling bad about yourself - or that you are a failure or have let yourself or your family down: not at all 7. Trouble concentrating on things, such as reading the newspaper or watching television: several days 8. Moving or speaking so slowly that other people could have noticed. Or the opposite - being so fidgety or restless that you have been moving around a lot more than usual: several days 9. Thoughts that you would be better off or of hurting yourself in some way: not at all Total score: 10 Source: Developed by Julian Echolset B.W. Ziggy, Reinaldo Henry and colleagues, with an educational yanely from [employer]. Thrive Questionnaire Date Thrive assessed: 01/02/23 AUDIT C Alcohol Use Questionnaire (AUDIT-C) 1. How often do you have a drink containing alcohol?: 4 or more times a week 2. How many drinks containing alcohol do you have on a typical day when you are drinking?: 1 or 2 3. How often do you have six or more drinks on one occasion?: Never Total Score: 4 KRISHAN-7 AMB Questionnaire KRISHAN-7 Date KRISHAN - 7 assessed: 01/02/23 Source: Developed by Drs. Eliud Proctor, Christine Trinh, Reinaldo Henry and colleagues, with an educational yanely from [employer]. Physical exam (Primary Care) Vital Signs: Last Vital Signs Pulse 89 03/19/23 10:54 BP 148/82 H 03/19/23 10:54 Pulse Ox 98 03/19/23 10:54 Oxygen Delivery Method Room Air 03/19/23 10:54 BMI result Body Mass Index 28.1 Tobacco/Smoking Status: Tobacco use Status Tobacco use date assessed 01/02/23 03/19/23 11:02 Patient Tobacco Use Status Never used Tobacco 03/19/23 11:02 e-Cigarette/Vaping Use Never Used 03/19/23 11:02 PHQ-9: PHQ-9 Score PHQ-9: Total score 10 03/19/23 11:04 Thrive Assessment: Date of Thrive Assessment Date Thrive assessed 01/02/23 03/19/23 11:02 Const General: alert; No acute distress Eyes Conjunctivae: conjunctivae normal Resp Auscultation: clear to auscultation bilaterally Cardio Rate: regular rate Rhythm: regular rhythm GI Inspection: Yes normal to inspection Extrem General: Yes normal to inspection and No edema Office Procedures Flu Questionnaire Does the patient have a severe egg allergy?: No Does the patient have severe life threatening allergies?: No Does the patient have a fever or illness today?: No Has the patient ever had Guillain-Bedford Syndrome?: No Has the patient ever had any past reaction to a flu shot?: No Immunizations flu vacc [id number] 6mos up(PF) 60 mcg(15 mcgx4)/0.5 mL IM syringe Performing Provider: Lillian Atkinson MD [facility] Administered by: Nicki Aguilar CMA on 03/19/23 11:04 Dose Route Admin Location Dispensed Lot Number Expiration Date NDC Director Alumni Relations 0.5 mL IM Left Deltoid 0.5 mL [id number] 12/15/23 00306-465-17 Dumbstruck VIS Given Date VIS Provided VIS Publication Date 03/19/23 Single Vaccine 21 Eligibility Eligibility Date Funding Source Not [facility] Eligible 03/19/23 Private Assessment and Plan Assessment & Plan (1) Hypertension: Code(s): I10 - Essential (primary) hypertension Qualifiers: Hypertension type: essential hypertension Qualified Code(s): I10 - Essential (primary) hypertension Plan: Continue with blood pressure medication. Decrease salt intake and exercise patient takes amlodipine 10 mg once a day lisinopril 40 mg once a day. BP high today - advised to monitor (2) Hypercholesterolemia: Code(s): E78.00 - Pure hypercholesterolemia, unspecified Plan: Avoid fried foods, chicken skin, eggs, butter margarine, pastries and meat. Be it pork or beef they have a lot of cholesterol LDL goal of less than 130 and triglyceride of less than 150 patient is on atorvastatin 10 mg at bedtime (3) Generalized anxiety disorder: Comment: (retiring) Dr. Mary Christie, New counsellor [place]. (01/2022) Code(s): F41.1 - Generalized anxiety disorder Plan: Continue with present medication and counseling (4) Fatty liver: Code(s): K76.0 - Fatty (change of) liver, not elsewhere classified Plan: Low-fat diet and exercise (5) Hypogonadism in male: Code(s): E29.1 - Testicular hypofunction Plan: Patient is seeing Urology in on testosterone (6) Osteoporosis: Comment: Secondary to alcohol abuse, hypogonadism and PPI use Code(s): M81.0 - Age-related osteoporosis without current pathological fracture Plan: Patient follows up with Renal and receives Reclast. Next bone density May 2023. will be seeing ENDO 04/2023 Orders: Orders Influenza [id number] Immunization Today Z23 - Encounter for immunization Lipid Panel Today E78.00 - Pure hypercholesterolemia, unspecified Thyroid Stimulating Hormone Today E78.00 - Pure hypercholesterolemia, unspecified Comprehensive Met. Panel Today E78.00 - Pure hypercholesterolemia, unspecified Free T4 (Free Thyroxine) Today E78.00 - Pure hypercholesterolemia, unspecified Coding Level of Care Code Est Pt Level 4 (22725) Diagnoses Essential hypertension I10 Hypertension type: essential hypertension Hypercholesterolemia E78.00 Generalized anxiety disorder F41.1 Fatty liver K76.0 Hypogonadism in male E29.1 Osteoporosis M81.0
[2023-03-19 11:26] VITALS: BP 150/90
== END 2023-03-19 11:38 | disposition home or self-care (01) ==
PROVIDERS: Visit Provider Internal Medicine
DX: I10 Essential (primary) hypertension (principal); E78.00 Pure hypercholesterolemia, unspecified; F41.1 Generalized anxiety disorder; K76.0 Fatty (change of) liver, not elsewhere classified; E29.1 Testicular hypofunction; M81.0 Age-related osteoporosis without current pathological fracture; Z23 Encounter for immunization
CPT/HCPCS: 90471; 90686; 99214

== ENCOUNTER 2023-04-17 11:04 | Outpatient (AMB) | payer OTHER, SELFPAY ==
--- NOTE | 2023-04-17 11:12 | MHC.OFFVIS ---
Intake Vital Signs 04/17/23 11:19 Height 5 ft 9 in Weight 192 lb BMI 28.4 BP 145/79 H Blood Pressure Location Lt brachial Position Sitting Pulse 100 Intake Visit Reasons: colonoscopy results Intake Note: Patient follow up for Colonoscopy results. Patient denies any GI issues. 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 Accompanied by: Self / Same As Patient Allergies moxifloxacin [From AVELOX] Allergy (Severe, Verified 04/17/23 11:17) SEVERE MOUTH/GENITAL SORES, swelling nitrofurantoin [NITROFURANTOIN] Allergy (Intermediate, Verified 04/17/23 11:17) BLOATING, bloated SEASONAL ALLERGIES Allergy (Mild, Uncoded 03/19/23 10:54) RUNNY NOSE HPI HPI Comments History of Present Illness Details 62-year-old male history of tubulovillous follows up after recent colonoscopy-he is somewhat anxious -his mom a undergoing chemotherapy for pancreatic cancer-somewhat difficult for him to process Bowels - normal- Appetite good Reviewed report, path reommendations No nausea, vomiting hematemesis, hematochezia fever chills PFSH Medical History (Updated 04/17/23 @ 11:14 by Gini Lozano PA-C) Vitamin D deficiency Hypogonadism male Numbness of left hand Trigger finger of right hand Rupture of left biceps tendon Right rib fracture Tibial plateau fracture, right Hypogonadism BPH (benign prostatic hyperplasia) Osteoporosis Erectile dysfunction Diverticulitis Cholelithiasis Hypertension Hypercholesterolemia Fatty liver Polysubstance abuse Asthma Gout Surgical History (Updated 03/14/23 @ 09:31 by Stefany Giordano) History of carpal tunnel surgery H/O colonoscopy Hx of arthroscopy of left knee Hx of umbilical hernia repair Hx of right knee surgery History of surgery on arm H/O knee surgery Ankle fracture, right Family History Mother Breast cancer Father Skin cancer Hypercholesterolemia Sister Depression Mental health disorder Social History Housing: Apartment Alcohol intake: current Alcohol intake frequency: 0-2 drinks per day Patient Tobacco Use Status: Never used Tobacco e-Cigarette/Vaping Use: Never Used Second Hand Smoke Exposure: No service: No Current occupational status: disabled Cognitive needs: No Hearing needs: No Vision needs: No Review of Systems Const All systems reviewed & are unremarkable except as noted in HPI and below Card Denies chest pain Physical Exam Vital Signs: Last Vital Signs Pulse 100 04/17/23 11:19 BP 145/79 H 04/17/23 11:19 BMI result Body Mass Index 28.4 Const General: cooperative, healthy appearing, comfortable, no acute distress and anxious Orientation/consciousness: patient oriented x3 Limitations: ambulation with cane Eyes Sclerae: sclerae normal Resp Effort & Inspection: normal respiratory effort and able to speak in complete sentences Skin General skin exam: no rashes or lesions noted Neuro General: patient oriented x3 Psych Appearance: grossly normal and well kempt Mental Status: mental status grossly normal Speech and movement: Normal speech and movement present and Clear speech present Affect: Anxious affect present Attitude: cooperative Thought process: Normal thought process present Thought content: Normal thought content present Results Reviewed Results Reviewed: mpression and Post Procedure Diagnosis: polyps internal hemorrhoids diverticular disease Plan: High fiber diet leaflet Avoid straining at stool, epsom salts and sitz bath, anusol supps or cream Repeat Colonoscopy in 3-4 years or earlier if clinically indicated Name: BrandifernandoDevon Age/Sex: 62/M Attending: Leeanna Negron MD : 1960 Submitted by: Leeanna Negron MD Copies to: Lillian Atkinson MD MR #: [id number] Status: [facility] Collected: 03/05/23 Location: [facility] Received: 03/05/23 Diagnosis A. Cecum, polypectomy: Fragments of tubular adenoma; negative for high-grade dysplasia or carcinoma. B. Colon, descending, polypectomy: Hyperplastic mucosal polyp. C. Rectum, polypectomy: Tubular adenoma; negative for high-grade dysplasia or carcinoma. Clinical History Pre-Op Dx: History of colon polyps Post-Op Dx: Colon polyps, diverticulosis, hemorrhoids Microscopic Description A-C. Microscopic sections reviewed. Material Received A. Polyp cecum B. Polyp descending colon C. Polyp rectum Gross Description Received in 3 parts. Part A: Received in formalin labeled ?polyp cecum? are 2 glistening, semitranslucent, soft, pickett-pink papular and rectangular tissue fragments measuring 0.6 and 0.9 cm in greatest dimension which are submitted in toto in a single cassette labeled A. Part B: Received in formalin labeled ?polyps descending colon? are 5 glistening, semitranslucent, soft, pickett irregular tissue fragments each measuring 0.15 cm in greatest dimension which are submitted in toto in a single cassette labeled B. Part C: Received in formalin labeled ?polyp rectum? are 2 glistening, hyperemic, pickett-pink papular tissue fragments measuring 0.25 and 0.6 cm in greatest dimension which are submitted in toto in a single cassette labeled C. CEDS Patient: Devon Deal Age/Sex: 62/M MR#: [id number] Page 1 of 2 Assessment & Plan Assessment & Plan (1) History of colon polyps: Comment: Previous colonoscopy tubulovillous adenoma, repeat colonoscopy February 2023 reveals adenoma Code(s): Z86.010 - Personal history of colonic polyps Plan: Repeat asymptomatic colonoscopy 3-4 year (2) Diverticulosis of colon: Code(s): K57.30 - Diverticulosis of large intestine without perforation or abscess without bleeding Plan: Maintain high-fiber diet ER protocol (3) Hemorrhoids: Code(s): K64.9 - Unspecified hemorrhoids Plan: High-fiber diet avoid straining Plan 3-4 year repeat colonoscopy Patient Instructions: 3-4 year repeat colonoscopy- TA maintain HFD- ER protocol- diverticulosis Coding Level of Care Code New Pt Level 3 (68670) Diagnoses History of colon polyps Z86.010 Diverticulosis of colon K57.30 Hemorrhoids K64.9 Time Spent (min) 20
[2023-04-17 11:19] VITALS: BP 145/79; PULSE 100; BMI 28.4
== END 2023-04-17 12:21 | disposition home or self-care (01) ==
PROVIDERS: PCP Internal Medicine; Visit Provider Physician Assistant
DX: K57.30 Diverticulosis of large intestine without perforation or abscess without bleeding (principal); Z86.010 Personal history of colon polyps; K64.9 Unspecified hemorrhoids
CPT/HCPCS: 99213

== ENCOUNTER → 2023-04-17 11:04 | Outpatient (BNVA) | payer OTHER, SELFPAY | PROVIDERS: PCP Internal Medicine; Visit Provider Physician Assistant | DX: D12.0 Benign neoplasm of cecum (principal); D12.8 Benign neoplasm of rectum; K63.5 Polyp of colon; K57.30 Diverticulosis of large intestine without perforation or abscess without bleeding; K64.9 Unspecified hemorrhoids; Z98.890 Other specified postprocedural states | CPT/HCPCS: 99212 ==

== ENCOUNTER 2023-05-03 10:40 | Outpatient (REF) | payer OTHER, SELFPAY ==
[2023-05-03 14:12] LABS: Alanine Aminotransferase 74 U/L (0-40); Albumin Level 4.5 g/dL (3.5-5.0); Alkaline Phosphatase 59 U/L (39-117); Anion Gap 14 (12-20); Aspartate Amino Transferase 54 U/L (5-37); Bilirubin Total 1.2 mg/dL (0.0-1.0); Blood Urea Nitrogen 10 mg/dL (9-16); Calcium 9.8 mg/dL (8.4-10.2); Carbon Dioxide 24 mmol/L (22-29); Chloride 100 mmol/L (96-108); Estimated Glomerular Filt Rate > 60; Glucose Random 98 mg/dL (60-115); Potassium 4.2 mmol/L (3.3-5.1); Sodium 134 mmol/L (135-145); Total Protein 8.2 g/dL (6.5-8.0)
[2023-05-06 11:53] LABS: Calcium (PTHI) 9.8 mg/dL (8.6-10.3); PTHI 37 pg/mL (16-77)
[2023-05-07 23:03] LABS: Alkaline Phosphatase Bone 11.1 mcg/L (7.6-14.9)
[2023-05-08 14:28] LABS: Testosterone, Total 515 ng/dL (250-1100)
[2023-05-10 07:29] LABS: N-Telopeptide 34 (see note); NTXCreaRU 230 mg/dL (20-320)
== END 2023-05-03 10:41 | disposition home or self-care (01) ==
LOC: HO.10HDL 10:40
PROVIDERS: Urology; Visit Provider Internal Medicine
DX: M81.0 Age-related osteoporosis without current pathological fracture (principal); E29.1 Testicular hypofunction; E55.9 Vitamin D deficiency, unspecified
CPT/HCPCS: 36415; 80053; 82306; 82523; 83970; 84075; 84100; 84403

== ENCOUNTER 2023-05-15 08:37 | Outpatient (AMB) | payer OTHER, SELFPAY ==
--- NOTE | 2023-05-15 08:39 | A.OFFVIS_ITS ---
Intake Vital Signs 05/15/23 08:40 Height 5 ft 9 in Weight 188 lb 7.924 oz BMI 27.8 BP 130/80 Blood Pressure Location Lt brachial Position Sitting Pulse 111 H Pulse Source Pulse Oximeter Intake Visit Reasons: F/U Osteoporosis-LVM Intake Note: Patient present today for Osteoporosis follow up visit. 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 Accompanied by: Self / Same As Patient Allergies moxifloxacin [From AVELOX] Allergy (Severe, Verified 05/15/23 08:45) SEVERE MOUTH/GENITAL SORES, swelling nitrofurantoin [NITROFURANTOIN] Allergy (Intermediate, Verified 05/15/23 08:45) BLOATING, bloated SEASONAL ALLERGIES Allergy (Mild, Uncoded 03/19/23 10:54) RUNNY NOSE Medication List - Last Reconciled 05/15/23 by Eliud Carrillo MD albuterol sulfate 90 mcg/actuation (ProAir HFA) 2 puffs inhalation Q4-6H PRN amlodipine 10 mg PO DAILY atomoxetine (Strattera) 40 mg PO DAILY 30 days atorvastatin 10 mg PO BEDTIME baclofen 10 mg PO BID 15 days bupropion HCl (Wellbutrin XL) 300 mg PO QAM calcium carbonate 600 mg PO BID 30 days cholecalciferol (vitamin D3) 50 mcg PO DAILY dextroamphetamine-amphetamine 30 mg (Adderall) 30 mg PO DAILY fluticasone propionate 50 mcg/actuation (Allergy Relief (fluticasone)) 2 sprays intranasal DAILY fluticasone propionate 110 mcg/actuation (Flovent HFA) 2 puffs inhalation BID folic acid 1 mg PO DAILY lamotrigine 100 mg PO DAILY 90 days lisinopril 40 mg PO DAILY needle (disp) 22 G (BD Regular Bevel [place]) As directed needle (disp) 25 gauge (BD Regular Bevel [place]) As directed - for testosterone subcutaneous injection omeprazole 20 mg PO DAILY oxycodone-acetaminophen 5-325 mg 1 tab PO Q4H PRN paroxetine HCl 20 mg PO DAILY paroxetine HCl 10 mg PO QAM 90 days sildenafil 100 mg PO DAILY PRN 30 days syringe (disposable) (BD Luer-Sorin Syringe) Testosterone injection weekly tadalafil 5 mg PO DAILY 90 days testosterone cypionate (Depo-Testosterone) 80 mg (0.4 mL) subcut QWEEK 4 weeks thiamine HCl (vitamin B1) (Vitamin B-1) 100 mg PO DAILY HPI HPI Comments History of Present Illness Details 62 YO Male with PMHx anxiety, depression, ETOH Dependence and hypogonadism is seen in F/U for Osteoporosis. The patient last saw Dr. River on 11/05/2022 ?1) Osteoporosis: ?First diagnosed in 2019 after his first DEXA scan 01/06/19. ?He has a history of Hypogonadism, but has been on treatment with androgel for 20 years. Pt denies history of opoid abuse ?He underwent a full biochemical workup which was all WNL. He was started on IV Reclast and received his first infusion 10/27/2021. He tolerated this well without complication. ?He is a heavy drinker, drinking up to a pint of vodka per day. ?No history of pathologic fracture or ONJ. ?Has 0-1 servings of dietary calcium per day in the form of cottage cheese and yogurt. Takes Calcium supplement 600 mg PO BID. Takes Vitamin D 2000 IU daily. ?Uses Lamotrigine and Omeprazole daily. Denies ever using anticoagulant or glucocorticoid medication. ?Does not exercise currently. ?Fracture history: ?He has had multiple traumatic fractures, and 1 atraumatic fracture of the foot. ?Height loss: ?Has lost 1 inch in height. ?Denies a history of Kidney stones. ?Denies family history of Osteoporosis or hip fracture. ?UTD on dental cleanings. Had multiple extractions over the past 1 year. No planned upcoming dental work. ?DXA dated 05/19/2021: ?FINDINGS: AP SPINE L1-L2 (excluding L3 and L4): The data of L1-L4 has been changed to exclude the L3 and L4 vertebral bodies, because degenerative changes at these levels may cause overestimation of lumbar spine density. Current: BMD 0.828 g/cm2, Z-score -3.1, T-score -3.1, osteoporosis, 2.5% decrease from baseline (<5% change is not significant). Baseline: BMD 0.849 g/cm2. LEFT FEMUR, NECK: Current: BMD 0.818 g/cm2, Z-score -1.3, T-score -1.9, osteopenia. Baseline: BMD 0.806 g/cm2. LEFT FEMUR, TOTAL: Current: BMD 0.847 g/cm2, Z-score -1.5, T-score -1.8, osteopenia, 2.8% decrease from baseline (<5% change is not significant). Baseline: BMD 0.871 g/cm2. LEFT FOREARM RADIUS 33%: BMD 0.781 g/cm2, Z-score -1.8, T-score -2.1, osteopenia. Labs: Laboratory Tests 10/25/22 10/25/22 06:30 06:30 Ur 24 Hour Volume 3025 Ur Creatinine 24 H our 1.1 Ur Calcium 24 Hr 212 Has degenerative disc disease of spine and L wrist surgery which has healed PFSH Medical History (Updated 04/17/23 @ 11:14 by Gini Lozano PA-C) Vitamin D deficiency Hypogonadism male Numbness of left hand Trigger finger of right hand Rupture of left biceps tendon Right rib fracture Tibial plateau fracture, right Hypogonadism BPH (benign prostatic hyperplasia) Osteoporosis Erectile dysfunction Diverticulitis Cholelithiasis Hypertension Hypercholesterolemia Fatty liver Polysubstance abuse Asthma Gout Surgical History (Updated 03/14/23 @ 09:31 by Stefany Giordano) History of carpal tunnel surgery H/O colonoscopy Hx of arthroscopy of left knee Hx of umbilical hernia repair Hx of right knee surgery History of surgery on arm H/O knee surgery Ankle fracture, right Family History Mother Breast cancer Father Skin cancer Hypercholesterolemia Sister Depression Mental health disorder Social History Housing: Apartment Alcohol intake: current Alcohol intake frequency: 0-2 drinks per day Patient Tobacco Use Status: Never used Tobacco e-Cigarette/Vaping Use: Never Used Second Hand Smoke Exposure: No service: No Current occupational status: disabled Cognitive needs: No Hearing needs: No Vision needs: No Physical Exam Vital Signs: Last Vital Signs Pulse 111 H 05/15/23 08:40 BP 130/80 05/15/23 08:40 BMI result Body Mass Index 27.8 Const Other: Thyroid gland is normal size weighs about 15 g. There are no thyroid nodules palpated. There is no tenderness present on palpation of the spine Assessment & Plan Assessment & Plan (1) Osteoporosis: Comment: Secondary to alcohol abuse, hypogonadism and PPI use Code(s): M81.0 - Age-related osteoporosis without current pathological fracture Plan: This 62-year-old white male with a history of osteoporosis with negative seconda ry workup. He was on Reclast. He also has history of hypogonadism treated by his primary care provider. Plan is to transition the patient anabolic therapy with Tymlos or Forteo. This can be proceeded with anti resorptive therapy like Prolia or Reclast. Patient has no contraindication to anabolic therapy Orders: Orders XR DEXA axial skeleton Today M81.0 - Age-related osteoporosis without current pathological fracture Coding Level of Care Code Est Pt Level 3 (47123) Diagnoses Osteoporosis M81.0
[2023-05-15 08:40] VITALS: BP 130/80; PULSE 111; BMI 27.8
== END 2023-05-15 09:33 | disposition home or self-care (01) ==
PROVIDERS: PCP Internal Medicine; Visit Provider Internal Medicine Endocrinology, Diabetes & Metabolism
DX: M81.0 Age-related osteoporosis without current pathological fracture (principal)
CPT/HCPCS: 99213

== ENCOUNTER → 2023-05-15 08:37 | Outpatient (BNVA) | payer OTHER, SELFPAY | PROVIDERS: Visit Provider Internal Medicine Endocrinology, Diabetes & Metabolism | DX: M81.0 Age-related osteoporosis without current pathological fracture (principal) | CPT/HCPCS: 99212 ==

== ENCOUNTER 2023-05-16 09:29 | Outpatient (AMB) | payer OTHER, SELFPAY ==
--- NOTE | 2023-05-16 09:29 | A.OFFVIS_ITS ---
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 Allergies moxifloxacin [From AVELOX] Allergy (Severe, Verified 05/16/23 09:35) SEVERE MOUTH/GENITAL SORES, swelling nitrofurantoin [NITROFURANTOIN] Allergy (Intermediate, Verified 05/16/23 09:35) BLOATING, bloated SEASONAL ALLERGIES Allergy (Mild, Uncoded 05/16/23 09:35) RUNNY NOSE Medication List - Last Reconciled 05/16/23 by Zach Huerta MD albuterol sulfate 90 mcg/actuation (ProAir HFA) 2 puffs inhalation Q4-6H PRN amlodipine 10 mg PO DAILY atomoxetine (Strattera) 40 mg PO DAILY 30 days atorvastatin 10 mg PO BEDTIME baclofen 10 mg PO BID 15 days bupropion HCl (Wellbutrin XL) 300 mg PO QAM calcium carbonate 600 mg PO BID 30 days cholecalciferol (vitamin D3) 50 mcg PO DAILY dextroamphetamine-amphetamine 30 mg (Adderall) 30 mg PO DAILY fluticasone propionate 50 mcg/actuation (Allergy Relief (fluticasone)) 2 sprays intranasal DAILY fluticasone propionate 110 mcg/actuation (Flovent HFA) 2 puffs inhalation BID folic acid 1 mg PO DAILY lamotrigine 100 mg PO DAILY 90 days lisinopril 40 mg PO DAILY needle (disp) 22 G (BD Regular Bevel [place]) As directed needle (disp) 25 gauge (BD Regular Bevel [place]) As directed - for testosterone subcutaneous injection omeprazole 20 mg PO DAILY oxycodone-acetaminophen 5-325 mg 1 tab PO Q4H PRN paroxetine HCl 20 mg PO DAILY paroxetine HCl 10 mg PO QAM 90 days sildenafil 100 mg PO DAILY PRN 30 days syringe (disposable) (BD Luer-Sorin Syringe) Testosterone injection weekly tadalafil 5 mg PO DAILY 90 days testosterone cypionate (Depo-Testosterone) 80 mg (0.4 mL) subcut QWEEK 4 weeks thiamine HCl (vitamin B1) (Vitamin B-1) 100 mg PO DAILY HPI HPI Comments History of Present Illness Details Devon WELCH is a very pleasant male. They are a patient of Dr Atkinson. They are seen in the office today for the following urologic conditions. ?- erectile dysfunction ?- low testosterone ?- incomplete bladder emptying. Telemedicine Evaluation 15 min Consultation [employer] [facility] Six month follow-up Lab work stable Erectile dysfunction and BPH responds well to daily tadalafil Decreased premature ejaculation with paroxetine Prescription provided Hypogonadism Current treatment injectable testosterone Laboratories - 01/04 T 674 - 08/08 T 300 P 0.4 H 46.9 F7.7, 02/05 T 481 0.52 50.5, 05/08 T 560, 05/09 515 1.0 51.3 Erectile dysfunction:? Has been using daily tadalafil ?Partial responses Addition of maximal sildenafil ? Symptoms have been present for/since?Ongoing.? Current treament includes?daily tadalafil.? Prior therapies include?oral medications.? At this time he experiences erections?are partial and adequate for vaginal penetration, that undergo rapid detumesence after penetration, DENISA 8- 11 Moderate ED.? Currently they are?is not in a relationship.? Associated problems? hypertension ?Yes ? diabetes ?No ? dyslipidemia ?Yes ? Medications include(s)?antidepressant medication.? Overall he is ?satisfied with the current management.? Therapeutic plan includes?increasing dose of oral medication daily Lower Urinary Tract Symptoms:? Good response with daily tadalafil. ? Current visit is for?further evaluation of, lower urinary tract symptoms.? Current treatment includes?observation.? Prostate Symptom Score?Moderate (9-19), Bother 3.? Symptoms include?incomplete emptying, weak stream, and are progressing.? Prostate volume?30-50gm.? Testing at next visit will include?bladder scan.? Treatment plan?continue with current medications PFSH Medical History Vitamin D deficiency Hypogonadism male Numbness of left hand Trigger finger of right hand Rupture of left biceps tendon Right rib fracture Tibial plateau fracture, right Hypogonadism BPH (benign prostatic hyperplasia) Osteoporosis Erectile dysfunction Diverticulitis Cholelithiasis Hypertension Hypercholesterolemia Fatty liver Polysubstance abuse Asthma Gout Surgical History History of carpal tunnel surgery H/O colonoscopy Hx of arthroscopy of left knee Hx of umbilical hernia repair Hx of right knee surgery History of surgery on arm H/O knee surgery Ankle fracture, right Family History Mother Breast cancer Father Skin cancer Hypercholesterolemia Sister Depression Mental health disorder Social History Housing: Apartment Alcohol intake: current Alcohol intake frequency: 0-2 drinks per day Patient Tobacco Use Status: Never used Tobacco e-Cigarette/Vaping Use: Never Used Second Hand Smoke Exposure: No service: No Current occupational status: disabled Cognitive needs: No Hearing needs: No Vision needs: No Review of Systems Const All systems reviewed & are unremarkable except as noted in HPI and below Reports no additional complaints Resp Reports no additional complaints GI Reports no additional complaints Reports as per HPI Musc Reports no additional complaints Physical Exam Telemedicine evaluation Appropriate responses Regular breathing rate and rhythm HEENT Head: Yes normal to inspection Ears: hearing grossly normal bilaterally Eyes General: appearance normal, both eyes and all related structures Neck Neck: Yes normal visual inspection Chest Chest palpation & inspection: normal inspection of the chest Resp Effort & Inspection: normal respiratory effort and able to speak in complete sentences Assessment & Plan Assessment & Plan (1) Premature ejaculation: Code(s): F52.4 - Premature ejaculation (2) Bladder outlet obstruction: Code(s): N32.0 - Bladder-neck obstruction (3) Hypogonadism in male: Code(s): E29.1 - Testicular hypofunction Plan Six month follow-up lab work Orders: Orders Testosterone, Total 05/03/23 E29.1 - Testicular hypofunction Complete Blood Count no Diff 6 Months E29.1 - Testicular hypofunction Prostate Specific Antigen 6 Months E29.1 - Testicular hypofunction Testosterone, Total 6 Months E29.1 - Testicular hypofunction Medications: Refilled testosterone cypionate (Depo-Testosterone) 80 mg (0.4 mL) subcut QWEEK 2 mL 5RF 4 weeks E29.1 - Testicular hypofunction, [id number] Patient Instructions: Imaging studies, laboratory and physical exam results were discussed and reviewed in detail. No major barriers to patient understanding were identified. An opportunity to ask questions regarding the treatment plan was provided. All questions were answered. The patient expressed understanding and agreement with the above treatment plan. The patient is aware they should contact our office by phone for worsening of their current condition or the appearance of new urologic symptoms. Compliance is encouraged with any medications and followup testing that is ordered. It is a privilege to participate in the urologic care of your patient. If you have any questions or concerns regarding treatment for the above conditions, or other urologic issues, please do not hesitate to contact me. The office telephone contact is [phone]. This note is constructed using voice recognition software. While every effort has been made to ensure accuracy raiser helper errors may have been included. Yours sincerely, Dr Zach Huerta MD, DEE [facility] - Urology Providers of Expert, Compassionate Care for the Genitourinary System Telehealth Telehealth Location of provider rendering services: practice address Location of patient: address on file Patient Identification confirmed using: Name, : Yes Telehealth method: video (Android ) Patient verbally consented to treatment: Yes Patient verbally consented to billing insurance company: Yes Patient informed of any privacy concerns related to visit: Yes Coding Level of Care Code Tele Est Pt Level 3 (64164) Diagnoses Premature ejaculation F52.4 Bladder outlet obstruction N32.0 Hypogonadism in male E29.1
== END 2023-05-16 10:53 | disposition home or self-care (01) ==
LOC: HO.HUSH 09:29
PROVIDERS: PCP Internal Medicine; Visit Provider Urology
DX: F52.4 Premature ejaculation (principal); N32.0 Bladder-neck obstruction; E29.1 Testicular hypofunction
CPT/HCPCS: 99213

== ENCOUNTER → 2023-05-16 09:29 | Outpatient (BNVA) | payer OTHER, SELFPAY | PROVIDERS: PCP Internal Medicine; Visit Provider Urology ==

== ENCOUNTER → 2023-05-22 12:05 | Outpatient (BNVA) | payer OTHER, SELFPAY | PROVIDERS: PCP Internal Medicine; Visit Provider Internal Medicine Endocrinology, Diabetes & Metabolism ==

== ENCOUNTER 2023-06-26 10:40 | Outpatient (REF) | payer OTHER, SELFPAY | END 2023-06-26 10:41 | disposition home or self-care (01) | LOC: HO.LAB 10:40 | PROVIDERS: PCP Internal Medicine; Visit Provider Internal Medicine | DX: Z13.89 Encounter for screening for other disorder (principal) ==

== ENCOUNTER 2023-06-28 11:12 | Outpatient (REF) | payer OTHER, SELFPAY ==
[2023-06-28 14:15] LABS: Alanine Aminotransferase 41 U/L (0-40); Albumin Level 4.3 g/dL (3.5-5.0); Alkaline Phosphatase 64 U/L (39-117); Anion Gap 12 (12-20); Aspartate Amino Transferase 36 U/L (5-37); Bilirubin Total 1.2 mg/dL (0.0-1.0); Blood Urea Nitrogen 8 mg/dL (9-16); Calcium 9.8 mg/dL (8.4-10.2); Carbon Dioxide 28 mmol/L (22-29); Chloride 103 mmol/L (96-108); Cholesterol 191 mg/dL (<200); Estimated Glomerular Filt Rate > 60; Free T4 (Free Thyroxine) 0.88 ng/dL (0.71-1.85); Glucose Random 121 mg/dL (60-115); HDL Cholesterol 48 mg/dL (>40); LDL Cholesterol Calculated 123 mg/dL (<100); Potassium 3.5 mmol/L (3.3-5.1); Sodium 139 mmol/L (135-145); Thyroid Stimulating Hormone 0.39 uIU/mL (0.32-4.0); Total Protein 7.7 g/dL (6.5-8.0); Triglycerides 104 mg/dL (<150)
== END 2023-06-28 11:13 | disposition home or self-care (01) ==
LOC: HO.10HDL 11:12
PROVIDERS: Visit Provider Internal Medicine
DX: E78.00 Pure hypercholesterolemia, unspecified (principal)
CPT/HCPCS: 36415; 80053; 80061; 84439; 84443

== ENCOUNTER 2023-07-04 09:41 | Outpatient (AMB) | payer OTHER, SELFPAY ==
[2023-07-04 09:42] VITALS: BP 140/82; PULSE 118; O2SAT 96; BMI 27.3
--- NOTE | 2023-07-04 09:42 | MHC.PC.OV ---
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 Twisting Department Required: No Allergies moxifloxacin [From AVELOX] Allergy (Severe, Verified 07/04/23 09:49) SEVERE MOUTH/GENITAL SORES, swelling nitrofurantoin [NITROFURANTOIN] Allergy (Intermediate, Verified 07/04/23 09:49) BLOATING, bloated SEASONAL ALLERGIES Allergy (Mild, Uncoded 07/04/23 09:49) RUNNY NOSE Medication List - Last Reconciled 07/04/23 by Lillian Atkinson MD abaloparatide (Tymlos) 80 mcg (0.04 mL) subcut DAILY amlodipine 10 mg PO DAILY atorvastatin 10 mg PO BEDTIME baclofen 10 mg PO BID 15 days calcium citrate-vitamin D3 315 mg-5 mcg (200 unit) 2 tabs PO BID dextroamphetamine-amphetamine 20 mg 1 tab PO BID fluticasone propionate 50 mcg/actuation (Allergy Relief (fluticasone)) 2 sprays intranasal DAILY fluticasone propionate 110 mcg/actuation (Flovent HFA) 2 puffs inhalation BID folic acid 1 mg PO DAILY lamotrigine 100 mg PO DAILY 90 days lisinopril 40 mg PO DAILY needle (disp) 22 G (BD Regular Bevel [place]) As directed needle (disp) 25 gauge (BD Regular Bevel [place]) As directed - for testosterone subcutaneous injection omeprazole 20 mg PO DAILY oxycodone-acetaminophen 5-325 mg 1 tab PO Q4H PRN paroxetine HCl 20 mg PO DAILY sildenafil 100 mg PO DAILY PRN 30 days syringe (disposable) (BD Luer-Sorin Syringe) Testosterone injection weekly tadalafil 5 mg PO DAILY 90 days testosterone cypionate (Depo-Testosterone) 80 mg (0.4 mL) subcut QWEEK 4 weeks thiamine HCl (vitamin B1) (Vitamin B-1) 100 mg PO DAILY Tobacco use date assessed: 07/04/23 Dental Screening Dental Screen Date: 07/04/23 HPI HTN, Cho HPI Details 62-year-old overweight male with hypertension hypercholesterolemia hypogonadism osteoporosis fatty liver and generalized anxiety disorder last seen in March 2023. Patient is here for follow-up. Colonoscopy recently done February 2023. April 2023 seen by orthopedics for left hip pain diagnosis of mild osteoarthritis MRI ordered through [facility] and [email or web address]. For the osteoporosis patient is getting injections under Endocrinology. Patient also follows up with urology for the hypogonadism and on testosterone. Patient has seen [facility] April 2023 for the left hip pain also on oxycodone MRI requested. Patient had an MRI done in February 2023 lumbar showing multilevel degenerative changes throughout the lumbar spine without high-grade foraminal or spinal canal stenosis. MRI hip done- L - and ahip replecement 07/2023 Dr. Amy palma [facility] Medical History Vitamin D deficiency Hypogonadism male Numbness of left hand Trigger finger of right hand Rupture of left biceps tendon Right rib fracture Tibial plateau fracture, right Hypogonadism BPH (benign prostatic hyperplasia) Osteoporosis Erectile dysfunction Diverticulitis Cholelithiasis Hypertension Hypercholesterolemia Fatty liver Polysubstance abuse Asthma Gout Surgical History History of carpal tunnel surgery H/O colonoscopy Hx of arthroscopy of left knee Hx of umbilical hernia repair Hx of right knee surgery History of surgery on arm H/O knee surgery Ankle fracture, right Family History Mother Breast cancer Father Skin cancer Hypercholesterolemia Sister Depression Mental health disorder Social History Housing: Apartment Alcohol intake: current Alcohol intake frequency: 0-2 drinks per day Patient Tobacco Use Status: Never used Tobacco e-Cigarette/Vaping Use: Never Used Second Hand Smoke Exposure: No service: No Current occupational status: disabled Cognitive needs: No Hearing needs: No Vision needs: No Questionnaire PHQ-9 Over the last 2 weeks, how often have you been bothered by any of the following problems? 1. Little interest or pleasure in doing things: several days 2. Feeling down, depressed, or hopeless: several days 3. Trouble falling or staying asleep, or sleeping too much: nearly every day 4. Feeling tired or having little energy: nearly every day 5. Poor appetite or overeating: not at all 6. Feeling bad about yourself - or that you are a failure or have let yourself or your family down: not at all 7. Trouble concentrating on things, such as reading the newspaper or watching television: several days 8. Moving or speaking so slowly that other people could have noticed. Or the opposite - being so fidgety or restless that you have been moving around a lot more than usual: several days 9. Thoughts that you would be better off or of hurting yourself in some way: not at all Total score: 10 Source: Developed by Drs. Eliud Proctor, Christine Trinh, Reinaldo Henry and colleagues, with an educational yanely from [employer]. Thrive Questionnaire Date Thrive assessed: 01/02/23 AUDIT C Alcohol Use Questionnaire (AUDIT-C) 1. How often do you have a drink containing alcohol?: 4 or more times a week 2. How many drinks containing alcohol do you have on a typical day when you are drinking?: 1 or 2 3. How often do you have six or more drinks on one occasion?: Never Total Score: 4 KRISHAN-7 AMB Questionnaire KRISHAN-7 Date KRISHAN - 7 assessed: 07/04/23 Source: Developed by Drs. Eliud Proctor, Christine Trinh, Reinaldo Henry and colleagues, with an educational yanely from [employer]. Physical exam (Primary Care) Vital Signs: Last Vital Signs Pulse 118 H 07/04/23 09:42 BP 140/82 H 07/04/23 09:42 Pulse Ox 96 07/04/23 09:42 Oxygen Delivery Method Room Air 07/04/23 09:42 BMI result Body Mass Index 27.3 Tobacco/Smoking Status: Tobacco use Status Tobacco use date assessed 07/04/23 07/04/23 09:43 Patient Tobacco Use Status Never used Tobacco 07/04/23 09:43 e-Cigarette/Vaping Use Never Used 07/04/23 09:43 PHQ-9: PHQ-9 Score PHQ-9: Total score 10 07/04/23 09:52 Thrive Assessment: Date of Thrive Assessment Date Thrive assessed 01/02/23 07/04/23 09:43 Const General: alert; No acute distress Eyes Conjunctivae: conjunctivae normal Resp Auscultation: clear to auscultation bilaterally Cardio Rate: regular rate Rhythm: regular rhythm GI Inspection: Yes normal to inspection Extrem General: Yes normal to inspection and No edema Assessment and Plan Assessment & Plan (1) Asthma: Code(s): J45.909 - Unspecified asthma, uncomplicated Plan: Continue with inhaler as needed (2) Hypertension: Code(s): I10 - Essential (primary) hypertension Qualifiers: Hypertension type: essential hypertension Qualified Code(s): I10 - Essential (primary) hypertension Plan: Continue with blood pressure medication. Decrease salt intake and exercise on amlodipine 10 mg once a day lisinopril 40 mg once a day (3) Hypercholesterolemia: Code(s): E78.00 - Pure hypercholesterolemia, unspecified Plan: Avoid fried foods, chicken skin, eggs, butter margarine, pastries and meat. Be it pork or beef they have a lot of cholesterol on atorvastatin 10 mg once a day (4) Osteoporosis: Comment: Secondary to alcohol abuse, hypogonadism and PPI use Code(s): M81.0 - Age-related osteoporosis without current pathological fracture Plan: Patient under endocrinology receives Tymlos (5) Generalized anxiety disorder: Comment: (retiring) Dr. Mary Christie, New counsellor [place]. (01/2022) Code(s): F41.1 - Generalized anxiety disorder Plan: Continue with counseling in therapy (6) Lumbar degenerative disc disease: Comment: MRI February 2023 multilevel lumbar Code(s): M51.36 - Other intervertebral disc degeneration, lumbar region Plan: Patient sees [facility] (7) Hypogonadism in male: Code(s): E29.1 - Testicular hypofunction Plan: Patient follows up with urology (8) Elevated blood sugar: Code(s): R73.9 - Hyperglycemia, unspecified Plan: discussed aobut diet (9) Constipation: Code(s): K59.00 - Constipation, unspecified Plan: get more fiber in diet (10) Urinary incontinence: Code(s): R32 - Unspecified urinary incontinence Plan: US requested and urinalysis advised Orders: Orders US bladder Today R32 - Unspecified urinary incontinence Prostate Specific Antigen Scr Today R32 - Unspecified urinary incontinence UA w Microscopic Today R32 - Unspecified urinary incontinence Medications: New ipratropium-albuterol 20-100 mcg/actuation (Combivent Respimat) 1 puff inhalation Q6H 4 grams 0RF J45.909 - Unspecified asthma, uncomplicated Coding Level of Care Code Est Pt Level 4 (70567) Diagnoses Asthma J45.909 Essential hypertension I10 Hypertension type: essential hypertension Hypercholesterolemia E78.00 Osteoporosis M81.0 Generalized anxiety disorder F41.1 Lumbar degenerative disc disease M51.36 Hypogonadism in male E29.1 Elevated blood sugar R73.9 Constipation K59.00 Urinary incontinence R32
== END 2023-07-04 10:42 | disposition home or self-care (01) ==
PROVIDERS: PCP Internal Medicine; Visit Provider Internal Medicine
DX: J45.909 Unspecified asthma, uncomplicated (principal); I10 Essential (primary) hypertension; E78.00 Pure hypercholesterolemia, unspecified; M81.0 Age-related osteoporosis without current pathological fracture; F41.1 Generalized anxiety disorder; M51.36 Other intervertebral disc degeneration, lumbar region; E29.1 Testicular hypofunction; R73.9 Hyperglycemia, unspecified; K59.00 Constipation, unspecified; R32 Unspecified urinary incontinence
CPT/HCPCS: 99214

== ENCOUNTER 2023-07-04 11:35 | Outpatient (REF) | payer OTHER, SELFPAY ==
[2023-07-04 13:11] LABS: Appearance Urine Clear; Color Urine Yellow; Glucose Urine UA Negative (Negative); Leukocyte Esterase Urine Trace (Negative); Nitrite Urine Negative (Negative); UMIC TRIGGER UA YES; Urine Blood Negative (Negative); Urine Ketones Trace mg/dL (Negative); Urine Protein 30 (1+) mg/dL (Neg-Trace)
[2023-07-04 13:14] LABS: Bacteria Urine None Seen (None Seen); Hyaline Casts Urine 0-2 /LPF (0-2); RBC Urine 0-2 /HPF (0-2); Squamous Epithelial Cell Urine 0-2 /HPF (0-2); WBC Urine 0-5 /HPF (0-5)
[2023-07-04 14:03] LABS: Prostate Specific Antigen Scr 1.86 ng/mL (<0.05-4.0)
== END 2023-07-04 11:36 | disposition home or self-care (01) ==
LOC: HO.10HDL 11:35
PROVIDERS: Visit Provider Internal Medicine
DX: R32 Unspecified urinary incontinence (principal); Z12.5 Encounter for screening for malignant neoplasm of prostate
CPT/HCPCS: 36415; 81001; 84153

== ENCOUNTER 2023-07-16 13:28 | Outpatient (REF) | payer OTHER, SELFPAY ==
--- NOTE | ~2023-07-16 | MM_ITS ---
EXAMINATION: BONE DENSITOMETRY CLINICAL INDICATION: Age-related osteoporosis without current pathological fracture. COMPARISON: Previous BD dated 05/19/2021 and baseline BD dated 01/06/2019, spine and left hip This is the patient's baseline examination for the right forearm radius 33%. TECHNIQUE: Using a [employer] DXA System (software version: 13.1) manufactured by [employer], dual-energy x-ray absorptiometry was performed of the lumbar spine, left hip and right forearm radius 33%. The images are of good technical quality. Summary results are attached. FINDINGS: LEFT FEMUR, NECK: Current: BMD 0.943 g/cm2, Z-score -0.2, T-score -1.0, normal. Prior: BMD 0.818 g/cm2. Baseline: BMD 0.806 g/cm2. LEFT FEMUR, TOTAL: Current: BMD 0.951 g/cm2, Z-score -0.7, T-score -1.0, normal, 12.3% increase from previous, 9.2% increase from baseline (<5% change is not significant). Prior: BMD 0.847 g/cm2. Baseline: BMD 0.871 g/cm2. AP SPINE L1-L2 (excluding L3 and L4): The data of L1-L4 has been changed to exclude the L3 and L4 vertebral bodies, because degenerative sclerosis at these levels may cause overestimation of lumbar spine density. Current: BMD 0.922 g/cm2, Z-score -2.1, T-score -2.3, osteopenia, 11.4% increase from previous, 8.6% increase from baseline (<5% change is not significant). Prior: BMD 0.828 g/cm2. Baseline: BMD 0.849 g/cm2. RIGHT FOREARM RADIUS 33%: BMD 0.766 g/cm2, Z-score -1.8, T-score -2.3, osteopenia. IDENTIFIED RISK FACTORS: Osteoporosis, history of fracture (adult), alcohol use, height loss, low calcium intake, secondary osteoporosis, (hypogonadism). HISTORY OF FRACTURE: Other. MEDICATIONS: Calcium supplements or multivitamin, vitamin D. MM/XR DEXA appendicular skeleton IMPRESSION: 1. DIAGNOSIS: Osteopenia based on the lowest T-score value of -2.3 in the lumbar spine and forearm radius 33% applying World Health Organization criteria. 2. 10-YEAR FRACTURE RISK PREDICTION, FRAX: Major osteoporotic fracture (clinical spine, forearm, hip or shoulder) 10.6%. Hip fracture 1.2%. 3. Treatment Recommendations: NOF guidelines recommend consideration for treatment in postmenopausal women and men age 50 and older presenting with the following: -A hip or vertebral (clinical or morphometric) fracture. -T-score less than or equal to -2.5 at the femoral neck or spine after appropriate evaluation to exclude secondary causes. -Low bone mass at the hip or spine and a 10-year fracture probability by FRAX of greater than or equal to 3% for hip fracture or greater than or equal to 20% for major osteoporotic fracture based on the [place] adapted WHO algorithm. 4. Other Recommendations: All treatment decisions require clinical judgment and consideration of individual patient factors, including patient preferences, comorbidities, previous drug use, risk factors not captured in the FRAX model (e.g. frailty, falls, vitamin D deficiency, increased bone turnover, interval significant decline in bone density) and possible under or overestimation of fracture risk by FRAX. Additional medical evaluation for secondary cause of low bone mineral density may be appropriate. FUTURE SCAN RECOMMENDATION: People with diagnosed cases of osteoporosis or at high risk for fracture should have regular bone mineral density tests. For patients eligible for Medicare, routine testing is allowed once every 2 years. The testing frequency can be increased to one year for patients who have rapidly progressing disease, those who are receiving or discontinuing medical therapy to restore bone mass, or have additional risk factors.
== END 2023-07-16 13:29 | disposition home or self-care (01) ==
LOC: HO.MAMMO 13:28
PROVIDERS: PCP Internal Medicine; Visit Provider Internal Medicine
DX: M81.0 Age-related osteoporosis without current pathological fracture (principal)
CPT/HCPCS: 77081

== ENCOUNTER 2023-07-22 11:39 | Outpatient (REF) | payer OTHER, SELFPAY ==
--- NOTE | ~2023-07-22 | US_ITS ---
EXAMINATION: US PELVIS LIMITED (BLADDER) CLINICAL INFORMATION: Unspecified urinary incontinence. COMPARISON: CT abdomen and pelvis 01/22/2019. TECHNIQUE: Real-time imaging of the bladder. FINDINGS: BLADDER: Well distended with diffuse wall thickening and mild trabeculations. Bilateral ureteral jets are demonstrated. Prevoid bladder volume is 227.0 mL. Postvoid bladder volume is 16.1 mL. Prostate volume 47.7 mL. US/US bladder IMPRESSION: 1. Diffuse wall thickening of the urinary bladder with mild trabeculations, likely related with chronic outlet obstruction. Further evaluation with urinalysis as clinically indicated. 2. Mild prostatomegaly. 3. Post void bladder volume is 16 mL.
== END 2023-07-22 11:40 | disposition home or self-care (01) ==
LOC: HO.US 11:39
PROVIDERS: PCP Internal Medicine; Visit Provider Internal Medicine
DX: R32 Unspecified urinary incontinence (principal)
CPT/HCPCS: 76857

== ENCOUNTER 2023-09-12 09:05 | Outpatient (AMB) | payer OTHER, SELFPAY ==
--- NOTE | 2023-09-12 09:10 | MHC.OFFVIS ---
Intake Vital Signs 09/12/23 09:11 Height 5 ft 9 in Weight 185 lb 13.595 oz BMI 27.4 BP 138/86 Blood Pressure Location Lt brachial Position Sitting Pulse 78 Pulse Source Pulse Oximeter Intake Visit Reasons: f/u osteoporsis-lvm Intake Note: Patient present today for Osteoporosis follow up visit. Mental Health Practitioner Required: No Accompanied by: Self / Same As Patient Allergies moxifloxacin [From AVELOX] Allergy (Severe, Verified 09/12/23 09:15) SEVERE MOUTH/GENITAL SORES, swelling nitrofurantoin [NITROFURANTOIN] Allergy (Intermediate, Verified 09/12/23 09:15) BLOATING, bloated SEASONAL ALLERGIES Allergy (Mild, Uncoded 09/12/23 09:15) RUNNY NOSE HPI HPI Comments History of Present Illness Details 63 YO Male with PMHx anxiety, depression, ETOH Dependence and hypogonadism is seen in F/U for Osteoporosis. ?1) Osteoporosis: ?First diagnosed in 2019 after his first DEXA scan 01/06/19. ?He has a history of Hypogonadism, but has been on treatment with androgel for 20 years. Pt denies history of opoid abuse ?He underwent a full biochemical workup which was all WNL. He was started on IV Reclast and received his first infusion 10/27/2021. He tolerated this well without complication. ?He is a heavy drinker, drinking up to a pint of vodka per day. ?No history of pathologic fracture or ONJ. ?Has 0-1 servings of dietary calcium per day in the form of cottage cheese and yogurt. Takes Calcium supplement 600 mg PO BID. Takes Vitamin D 2000 IU daily. ?Uses Lamotrigine and Omeprazole daily. Denies ever using anticoagulant or glucocorticoid medication. ?Does not exercise currently. ?Fracture history: ?He has had multiple traumatic fractures, and 1 atraumatic fracture of the foot. ?Height loss: ?Has lost 1 inch in height. ?Denies a history of Kidney stones. ?Denies family history of Osteoporosis or hip fracture. ?UTD on dental cleanings. Had multiple extractions over the past 1 year. No planned upcoming dental work. ?DXA dated 05/19/2021: ?FINDINGS: AP SPINE L1-L2 (excluding L3 and L4): The data of L1-L4 has been changed to exclude the L3 and L4 vertebral bodies, because degenerative changes at these levels may cause overestimation of lumbar spine density. Current: BMD 0.828 g/cm2, Z-score -3.1, T-score -3.1, osteoporosis, 2.5% decrease from baseline (<5% change is not significant). Baseline: BMD 0.849 g/cm2. LEFT FEMUR, NECK: Current: BMD 0.818 g/cm2, Z-score -1.3, T-score -1.9, osteopenia. Baseline: BMD 0.806 g/cm2. LEFT FEMUR, TOTAL: Current: BMD 0.847 g/cm2, Z-score -1.5, T-score -1.8, osteopenia, 2.8% decrease from baseline (<5% change is not significant). Baseline: BMD 0.871 g/cm2. LEFT FOREARM RADIUS 33%: BMD 0.781 g/cm2, Z-score -1.8, T-score -2.1, osteopenia. Labs: Laboratory Tests 10/25/22 10/25/22 06:30 06:30 Ur 24 Hour Volume 3025 Ur Creatinine 24 H our 1.1 Ur Calcium 24 Hr 212 Has degenerative disc disease of spine and L wrist surgery which has healed He is currently on Tymlos 80 mg q.d. since 3 mos ago [facility] Medical History (Updated 07/04/23 @ 10:27 by Lillian Atkinson MD) Vitamin D deficiency Hypogonadism male Numbness of left hand Trigger finger of right hand Rupture of left biceps tendon Right rib fracture Tibial plateau fracture, right Hypogonadism BPH (benign prostatic hyperplasia) Osteoporosis Erectile dysfunction Diverticulitis Cholelithiasis Hypertension Hypercholesterolemia Fatty liver Polysubstance abuse Asthma Gout Surgical History History of carpal tunnel surgery H/O colonoscopy Hx of arthroscopy of left knee Hx of umbilical hernia repair Hx of right knee surgery History of surgery on arm H/O knee surgery Ankle fracture, right Family History Mother Breast cancer Father Skin cancer Hypercholesterolemia Sister Depression Mental health disorder Social History Housing: Apartment Alcohol intake: current Alcohol intake frequency: 0-2 drinks per day Patient Tobacco Use Status: Never used Tobacco e-Cigarette/Vaping Use: Never Used Second Hand Smoke Exposure: No service: No Current occupational status: disabled Cognitive needs: No Hearing needs: No Vision needs: No Assessment & Plan Assessment & Plan (1) Osteoporosis: Comment: Secondary to alcohol abuse, hypogonadism and PPI use Code(s): M81.0 - Age-related osteoporosis without current pathological fracture Plan: This 63-year-old white male with a history of osteoporosis with negative secondary workup. He was on Reclast. He also has history of hypogonadism treated by his primary care provider. Currently being treated with Tymlos Plan is to continue the Tymlos for full 18 mo course then would give a dose of Reclast . (2) History of hip surgery: Code(s): Z98.890 - Other specified postprocedural states Plan: not addressed Coding Level of Care Code Est Pt Level 3 (69048) Diagnoses Osteoporosis M81.0 History of hip surgery Z98.890
[2023-09-12 09:11] VITALS: BP 138/86; PULSE 78; BMI 27.4
== END 2023-09-12 09:44 | disposition home or self-care (01) ==
PROVIDERS: PCP Internal Medicine; Visit Provider Internal Medicine Endocrinology, Diabetes & Metabolism
DX: M81.0 Age-related osteoporosis without current pathological fracture (principal); Z98.890 Other specified postprocedural states
CPT/HCPCS: 99213

== ENCOUNTER → 2023-09-12 09:05 | Outpatient (BNVA) | payer OTHER, SELFPAY | PROVIDERS: PCP Internal Medicine; Visit Provider Internal Medicine Endocrinology, Diabetes & Metabolism | DX: M81.0 Age-related osteoporosis without current pathological fracture (principal); Z98.890 Other specified postprocedural states | CPT/HCPCS: 99212 ==

== ENCOUNTER 2023-10-14 10:58 | Outpatient (AMB) | payer OTHER, SELFPAY ==
[2023-10-14 11:00] VITALS: BP 140/82; PULSE 116; O2SAT 95; BMI 27.2
--- NOTE | 2023-10-14 11:00 | MHC.PC.OV ---
Vital Signs 10/14/23 11:00 Height 5 ft 9 in Weight 184 lb BMI 27.2 BP 140/82 H Blood Pressure Location Lt brachial Position Sitting Pulse 116 H Pulse Source Pulse Oximeter Pulse Oximetry (%) 95 Oxygen Delivery Method Room Air Intake Visit Reasons: 3 Month F/U Intake Note: Patient is here to follow up on 3 months Dental Treatment Coordinator Required: No Allergies moxifloxacin [From AVELOX] Allergy (Severe, Verified 10/14/23 11:00) SEVERE MOUTH/GENITAL SORES, swelling nitrofurantoin [NITROFURANTOIN] Allergy (Intermediate, Verified 10/14/23 11:00) BLOATING, bloated SEASONAL ALLERGIES Allergy (Mild, Uncoded 10/14/23 11:00) RUNNY NOSE Tobacco use date assessed: 10/14/23 Dental Screening Dental Screen Date: 07/04/23 HPI 3 Month F/U HPI Details 63-year-old overweight male with a history of asthma hypertension hypercholesterolemia osteoporosis generalized anxiety disorder lumbar degenerative disc disease and hypogonadism last seen in June 2023. Patient's colonoscopy is up-to-date February 2023 3-4 years. Review of the notes has followed up with endocrinology due to osteoporosis diagnosed in 2018 diagnosis of hypogonadism but has been on treatment for AndroGel was started on IV Reclast October 2021 presently on Tymlos 80 mg once a day. Last bone density was done in July 2023 Noted also an ear visit in July 2023 for a vascular necrosis of the left hip has had left total hip arthroplasty Dr. Kenney. Patient had frequency and had an ultrasound done in July also showing an enlarged prostate 47 cc [facility] Medical History (Updated 10/14/23 @ 11:27 by Lillian Atkinson MD) Vitamin D deficiency Hypogonadism male Numbness of left hand Trigger finger of right hand Rupture of left biceps tendon Right rib fracture Tibial plateau fracture, right Hypogonadism BPH (benign prostatic hyperplasia) Osteoporosis Erectile dysfunction Diverticulitis Cholelithiasis Hypertension Hypercholesterolemia Fatty liver Polysubstance abuse Asthma Gout Surgical History History of carpal tunnel surgery H/O colonoscopy Hx of arthroscopy of left knee Hx of umbilical hernia repair Hx of right knee surgery History of surgery on arm H/O knee surgery Ankle fracture, right Family History Mother Breast cancer Father Skin cancer Hypercholesterolemia Sister Depression Mental health disorder Social History Housing: Apartment Alcohol intake: current Alcohol intake frequency: 0-2 drinks per day Patient Tobacco Use Status: Never used Tobacco e-Cigarette/Vaping Use: Never Used Second Hand Smoke Exposure: No service: No Current occupational status: disabled Cognitive needs: No Hearing needs: No Vision needs: No Questionnaire PHQ-9 Over the last 2 weeks, how often have you been bothered by any of the following problems? 1. Little interest or pleasure in doing things: several days 2. Feeling down, depressed, or hopeless: several days 3. Trouble falling or staying asleep, or sleeping too much: nearly every day 4. Feeling tired or having little energy: nearly every day 5. Poor appetite or overeating: not at all 6. Feeling bad about yourself - or that you are a failure or have let yourself or your family down: not at all 7. Trouble concentrating on things, such as reading the newspaper or watching television: several days 8. Moving or speaking so slowly that other people could have noticed. Or the opposite - being so fidgety or restless that you have been moving around a lot more than usual: several days 9. Thoughts that you would be better off or of hurting yourself in some way: not at all Total score: 10 Depression Screening Interpretation: Positive Depression Screening Done: Yes 92913 - PHQ-9 Billing: Yes Source: Developed by Drs. Eliud Proctor, Reinaldo Hyman and colleagues, with an educational yanely from [employer]. Thrive Questionnaire Date Thrive assessed: 10/14/23 AUDIT C Alcohol Use Questionnaire (AUDIT-C) 1. How often do you have a drink containing alcohol?: 4 or more times a week 2. How many drinks containing alcohol do you have on a typical day when you are drinking?: 1 or 2 3. How often do you have six or more drinks on one occasion?: Never Total Score: 4 KRISHAN-7 AMB Questionnaire KRISHAN-7 Date KRISHAN - 7 assessed: 07/04/23 Source: Developed by Drs. Eliud Proctor, Reinaldo Hyman and colleagues, with an educational yanely from [employer]. Physical exam (Primary Care) Vital Signs: Last Vital Signs Pulse 116 H 10/14/23 11:00 BP 140/82 H 10/14/23 11:00 Pulse Ox 95 10/14/23 11:00 Oxygen Delivery Method Room Air 10/14/23 11:00 BMI result Body Mass Index 27.2 Tobacco/Smoking Status: Tobacco use Status Tobacco use date assessed 10/14/23 10/14/23 11:01 Patient Tobacco Use Status Never used Tobacco 10/14/23 11:01 e-Cigarette/Vaping Use Never Used 10/14/23 11:01 PHQ-9: PHQ-9 Score PHQ-9: Total score 10 10/14/23 11:01 Depression Screening Interpretation: Positive Thrive Assessment: Date of Thrive Assessment Date Thrive assessed 10/14/23 10/14/23 11:01 Const General: alert; No acute distress Eyes Conjunctivae: conjunctivae normal Resp Auscultation: clear to auscultation bilaterally Cardio Rate: regular rate Rhythm: regular rhythm GI Inspection: Yes normal to inspection Extrem General: Yes normal to inspection and No edema Assessment and Plan Assessment & Plan (1) Osteoporosis: Comment: Secondary to alcohol abuse, hypogonadism and PPI use, July 2023 Code(s): M81.0 - Age-related osteoporosis without current pathological fracture Plan: Patient is being followed up by Endocrinology and presently on Tymlos last bone density July 2023 (2) Avascular necrosis of bones of both hips: Comment: Status post left hip replacement July [address]23 Dr. Oden Code(s): M87.051 - Idiopathic aseptic necrosis of right femur; M87.052 - Idiopathic aseptic necrosis of left femur Plan: Patient had left hip replacement July 2023 (3) Elevated blood sugar: Code(s): R73.9 - Hyperglycemia, unspecified Plan: Decrease the amount of carbohydrate intake, pasta, bread, rice and potatoes are all sugar and that is aside from all the sweet stuff, remember that fruits are good but they are Sweet also. (4) BPH (benign prostatic hyperplasia): Comment: 47 cc July 2023 Code(s): N40.0 - Benign prostatic hyperplasia without lower urinary tract symptoms Plan: Ultrasound done July due to frequency (5) Generalized anxiety disorder: Comment: (retiring) Dr. Mary Christie, New counsellor [place]. (01/2022) Dr. Dalton Code(s): F41.1 - Generalized anxiety disorder Plan: Continue with present medication paroxetine lamotrigines (6) Hypertension: Code(s): I10 - Essential (primary) hypertension Qualifiers: Hypertension type: essential hypertension Qualified Code(s): I10 - Essential (primary) hypertension Plan: Continue with blood pressure medication. Decrease salt intake and exercise on lisinopril 40 mg once a day amlodipine 10 mg once a day (7) Hypercholesterolemia: Code(s): E78.00 - Pure hypercholesterolemia, unspecified Plan: Avoid fried foods, chicken skin, eggs, butter margarine, pastries and meat. Be it pork or beef they have a lot of cholesterol LDL goal of less than 130 and triglyceride of less than 150 on atorvastatin 10 mg once a day (8) Hypogonadism in male: Code(s): E29.1 - Testicular hypofunction Plan: Continue with hormone treatment. Orders: Orders Complete Blood Count Auto Diff Today R73.01 - Impaired fasting glucose Thyroid Stimulating Hormone Today R73.01 - Impaired fasting glucose Vitamin B12 and Folate Today R73.01 - Impaired fasting glucose Comprehensive Met. Panel Today R73.01 - Impaired fasting glucose UA CC w/rflx Micro + Cult Today R30.0 - Dysuria, R73.01 - Impaired fasting glucose Hemoglobin A1c Today R73.01 - Impaired fasting glucose Lipid Panel Today E78.00 - Pure hypercholesterolemia, unspecified, R73.01 - Impaired fasting glucose Free T4 (Free Thyroxine) Today R73.01 - Impaired fasting glucose Coding Level of Care Code Est Pt Level 4 (70901) Diagnoses Osteoporosis M81.0 Avascular necrosis of bones of both hips M87.051; M87.052 Elevated blood sugar R73.9 BPH (benign prostatic hyperplasia) N40.0 Generalized anxiety disorder F41.1 Essential hypertension I10 Hypertension type: essential hypertension Hypercholesterolemia E78.00 Hypogonadism in male E29.1
== END 2023-10-14 11:39 | disposition home or self-care (01) ==
PROVIDERS: PCP Internal Medicine; Visit Provider Internal Medicine
DX: M81.0 Age-related osteoporosis without current pathological fracture (principal); M87.051 Idiopathic aseptic necrosis of right femur; M87.052 Idiopathic aseptic necrosis of left femur; R73.9 Hyperglycemia, unspecified; N40.0 Benign prostatic hyperplasia without lower urinary tract symptoms; F41.1 Generalized anxiety disorder; I10 Essential (primary) hypertension; E78.00 Pure hypercholesterolemia, unspecified; E29.1 Testicular hypofunction
CPT/HCPCS: 99214

== ENCOUNTER 2023-11-05 12:56 | Outpatient (REF) | payer OTHER, SELFPAY ==
[2023-11-05 14:10] LABS: Hematocrit 50.1 % (42.0-52.0); Hemoglobin 17.2 g/dl (14.0-18.0); Mean Corpuscular HGB Conc 34.3 g/dl (31.0-36.0); Mean Corpuscular Hemoglobin 30.9 pg (27.0-33.0); Mean Corpuscular Volume 89.9 fL (80.0-98.0); Mean Platelet Volume 9.3 fL (9.4-12.4); Platelet Count 249 X10*3/uL (160-400); Red Blood Count 5.57 X10*6/uL (4.60-5.80); Red Cell Distribution Width 14.7 % (11.0-16.0); White Blood Count 5.5 X10*3/uL (4.8-10.8)
[2023-11-05 15:16] LABS: Prostate Specific Antigen 1.35 ng/mL (<0.05-4.0)
[2023-11-09 16:52] LABS: Testosterone, Total 522 ng/dL (250-1100)
== END 2023-11-05 12:57 | disposition home or self-care (01) ==
LOC: HO.LAB 12:56
PROVIDERS: PCP Internal Medicine; Visit Provider Urology
DX: E29.1 Testicular hypofunction (principal); Z12.5 Encounter for screening for malignant neoplasm of prostate
CPT/HCPCS: 36415; 84153; 84403; 85027

== ENCOUNTER 2023-11-15 10:49 | Outpatient (AMB) | payer OTHER, SELFPAY ==
--- NOTE | 2023-11-15 11:17 | MHC.OFFVIS ---
Intake Visit Reasons: 6M CBC/PSA/Testo(set) Intake Note: Patient is Present for Follow Up Urology Medication: Tadalafil, Sildenafil, Testosterone Antibiotic Allergies: Nitrofuratoin(Macrobid)Moxiflocacin Blood Thinners: None Patient states he had a Hip replacement surgery this Jul 2023 Patient states he has been having some issues since that surgery Allergies moxifloxacin [From AVELOX] Allergy (Severe, Verified 01/31/24 08:01) SEVERE MOUTH/GENITAL SORES, swelling nitrofurantoin [NITROFURANTOIN] Allergy (Intermediate, Verified 01/31/24 08:01) BLOATING, bloated SEASONAL ALLERGIES Allergy (Mild, Uncoded 01/31/24 08:01) RUNNY NOSE HPI Comments Details: Devon WELCH is a very pleasant male. They are a patient of Dr Atkinson. They are seen in the office today for the following urologic conditions. ?- erectile dysfunction - low testosterone - incomplete bladder emptying - premature ejaculation Six month follow-up Lab work stable Erectile dysfunction and BPH responds well to daily tadalafil Decreased premature ejaculation with paroxetine Prescription provided Six-month follow-up Hypogonadism Current treatment injectable testosterone Laboratories - 01/04 T 674 - 08/08 T 300 P 0.4 H 46.9 F7.7, 02/05 T 481 0.52 50.5, 05/08 T 560, 05/09 515 1.0 51.3, 11/07 T 522 50.5 Erectile dysfunction:? Has been using daily tadalafil ?Partial responses Addition of maximal sildenafil ? Symptoms have been present for/since?Ongoing.? Current treament includes?daily tadalafil.? Prior therapies include?oral medications.? At this time he experiences erections?are partial and adequate for vaginal penetration, that undergo rapid detumesence after penetration, DENISA 8-11 Moderate ED.? Currently they are?is not in a relationship.? Associated problems? hypertension ?Yes ? diabetes ?No ? dyslipidemia ?Yes ? Medications include(s)?antidepressant medication.? Overall he is ?satisfied with the current management.? Therapeutic plan includes?increasing dose of oral medication daily Lower Urinary Tract Symptoms:? Good response with daily tadalafil. ? Current visit is for?further evaluation of, lower urinary tract symptoms.? Current treatment includes?observation.? Prostate Symptom Score?Moderate (9-19), Bother 3.? Symptoms include?incomplete emptying, weak stream, and are progressing.? Prostate volume?30-50gm.? Testing at next visit will include?bladder scan.? Treatment plan?continue with current medications [facility] Medical History (Updated 01/31/24 @ 08:12 by Zuri Lopez PA-C) Vitamin D deficiency Hypogonadism male Numbness of left hand Trigger finger of right hand Rupture of left biceps tendon Right rib fracture Tibial plateau fracture, right Hypogonadism BPH (benign prostatic hyperplasia) Osteoporosis Erectile dysfunction Diverticulitis Cholelithiasis Hypertension Hypercholesterolemia Fatty liver Polysubstance abuse Asthma Gout Surgical History History of carpal tunnel surgery H/O colonoscopy Hx of arthroscopy of left knee Hx of umbilical hernia repair Hx of right knee surgery History of surgery on arm H/O knee surgery Ankle fracture, right Family History Mother Breast cancer Father Skin cancer Hypercholesterolemia Sister Depression Mental health disorder Social History Housing: Apartment Alcohol intake: current Alcohol intake frequency: 0-2 drinks per day Patient Tobacco Use Status: Never used Tobacco e-Cigarette/Vaping Use: Never Used Second Hand Smoke Exposure: No service: No Current occupational status: disabled Cognitive needs: No Hearing needs: No Vision needs: No Review of Systems Const Denies chills and Denies fever(s) Card Reports no additional complaints and Denies syncope Resp Denies cough GI Denies abdominal pain and Denies heartburn Reports as per HPI and Denies change in libido Neuro Denies syncope Psych Denies change in libido Endo Denies change in libido Physical Exam Const General: cooperative, healthy appearing, comfortable and no acute distress Orientation/consciousness: patient oriented x3 HEENT Face and sinus: Yes normal facial exam Mouth: moist mucous membranes Neck Neck: Yes normal visual inspection, Yes full ROM and Yes trachea midline Chest Chest palpation & inspection: normal inspection of the chest Resp Effort & Inspection: normal respiratory effort, able to speak in complete sentences and no respiratory distress GI Inspection: Yes normal to inspection Back/Spine/Pelvis Cervical Spine: normal cervical lordosis Thoracic/Lumbar Spine: thoracic and lumbar spine normal to inspection Skin General skin exam: no rashes or lesions noted Neuro General: patient oriented x3, gait normal, tone normal and moves all extremities Extrem General: Yes normal to inspection and Yes capillary refill normal Assessment & Plan Assessment & Plan (1) Urinary incontinence: Code(s): R32 - Unspecified urinary incontinence Category: Medical (2) Bladder outlet obstruction: Code(s): N32.0 - Bladder-neck obstruction Category: Medical (3) Premature ejaculation: Code(s): F52.4 - Premature ejaculation Category: Medical Plan Six-month follow-up Medications: Refilled testosterone cypionate (Depo-Testosterone) 80 mg (0.4 mL) subcut QWEEK 2 mL 5RF 4 weeks E29.1 - Testicular hypofunction, [id number] Patient Instructions: Imaging studies, laboratory and physical exam results were discussed and reviewed in detail. No major barriers to patient understanding were identified. An opportunity to ask questions regarding the treatment plan was provided. All questions were answered. The patient expressed understanding and agreement with the above treatment plan. The patient is aware they should contact our office by phone for worsening of their current condition or the appearance of new urologic symptoms. Compliance is encouraged with any medications and followup testing that is ordered. It is a privilege to participate in the urologic care of your patient. If you have any questions or concerns regarding treatment for the above conditions, or other urologic issues, please do not hesitate to contact me. The office telephone contact is [phone]. This note is constructed using voice recognition software. While every effort has been made to ensure accuracy traffic counter errors may have been included. Yours sincerely, Dr Zach Huerta MD, [facility] - Urology Providers of Expert, Compassionate Care for the Genitourinary System Coding Level of Care Code Est Pt Level 3 (19129) Diagnoses Urinary incontinence R32 Bladder outlet obstruction N32.0 Premature ejaculation F52.4
== END 2023-11-15 12:28 | disposition home or self-care (01) ==
PROVIDERS: PCP Internal Medicine; Visit Provider Urology
DX: R32 Unspecified urinary incontinence (principal); N32.0 Bladder-neck obstruction; F52.4 Premature ejaculation
CPT/HCPCS: 99213

== ENCOUNTER → 2023-11-15 10:49 | Outpatient (BNVA) | payer OTHER, SELFPAY | PROVIDERS: PCP Internal Medicine; Visit Provider Urology | DX: N32.0 Bladder-neck obstruction (principal); R32 Unspecified urinary incontinence; F52.4 Premature ejaculation | CPT/HCPCS: 99212 ==

== ENCOUNTER 2024-01-17 13:25 | Outpatient (AMB) | payer OTHER, SELFPAY ==
[2024-01-17 13:35] VITALS: BP 168/100; PULSE 96; O2SAT 95; BMI 27.2
--- NOTE | 2024-01-17 13:35 | MHC.PC.OV ---
Vital Signs 01/17/24 13:35 Height 5 ft 9 in Weight 184 lb BMI 27.2 BP 168/100 H Blood Pressure Location Lt brachial Position Sitting Pulse 96 Pulse Source Pulse Oximeter Pulse Oximetry (%) 95 Oxygen Delivery Method Room Air Intake Visit Reasons: reaction to medication/ lyme disease? Enrollment Advisor Required: No Allergies moxifloxacin [From AVELOX] Allergy (Severe, Verified 01/17/24 13:47) SEVERE MOUTH/GENITAL SORES, swelling nitrofurantoin [NITROFURANTOIN] Allergy (Intermediate, Verified 01/17/24 13:47) BLOATING, bloated SEASONAL ALLERGIES Allergy (Mild, Uncoded 01/17/24 13:47) RUNNY NOSE Medication List - Last Reconciled 01/17/24 by Zuri Lopze PA-C abaloparatide (Tymlos) 80 mcg (0.04 mL) subcut DAILY amlodipine 10 mg PO DAILY atorvastatin 10 mg PO BEDTIME calcium citrate-vitamin D3 315 mg-5 mcg (200 unit) 2 tabs PO BID 90 days clotrimazole-betamethasone 1-0.05 % 1 appl topical BID dextroamphetamine-amphetamine 20 mg 1 tab PO BID doxycycline hyclate 100 mg PO BID fluticasone propionate 50 mcg/actuation (Allergy Relief (fluticasone)) 2 sprays intranasal DAILY fluticasone propionate 110 mcg/actuation (Flovent HFA) 2 puffs inhalation BID folic acid 1 mg PO DAILY gabapentin 600 mg PO BID gabapentin mg PO ipratropium-albuterol 20-100 mcg/actuation (Combivent Respimat) 1 puff inhalation Q6H lamotrigine 100 mg PO DAILY 90 days lisinopril 40 mg PO DAILY meloxicam 15 mg PO DAILY needle (disp) 22 G (BD Regular Bevel Carter) As directed needle (disp) 25 gauge (BD Regular Bevel Carter) As directed - for testosterone subcutaneous injection omeprazole 20 mg PO DAILY paroxetine HCl 40 mg PO DAILY sildenafil 100 mg PO DAILY PRN 30 days syringe (disposable) (BD Luer-Sorin Syringe) Testosterone injection weekly tadalafil 5 mg PO DAILY 90 days testosterone cypionate (Depo-Testosterone) 80 mg (0.4 mL) subcut QWEEK 4 weeks thiamine HCl (vitamin B1) (Vitamin B-1) 100 mg PO DAILY Tobacco use date assessed: 10/14/23 Dental Screening Dental Screen Date: 07/04/23 HPI reaction to medication/ lyme disease? HPI Details 63-year-old male with past medical history of asthma, hypercholesterolemia, hypertension, BPH, generalized anxiety disorder, impaired glucose tolerance, fatty liver disease last seen by Dr. Atknison 09/2023. In review of the notes patient was seen by Urology for testicular hypofunction doing well on current medical management.? Patient was seen by [facility] urgent [facility] and diagnosed with Lyme disease being treated with doxycycline. Patient was on Tymlos for the past 4-5 months and has since stopped taking it due to the rash and adverse side effects. He began having a rash on the backs of his thighs and on his ankle for the past 1-2 weeks. The rash is individual red, raised, circular bumps that are itchy and have been bleeding when scratched the rash is only present on the back of his legs. [facility] Medical History (Updated 01/17/24 @ 14:16 by Zuri Lopez PA-C) Vitamin D deficiency Hypogonadism male Numbness of left hand Trigger finger of right hand Rupture of left biceps tendon Right rib fracture Tibial plateau fracture, right Hypogonadism BPH (benign prostatic hyperplasia) Osteoporosis Erectile dysfunction Diverticulitis Cholelithiasis Hypertension Hypercholesterolemia Fatty liver Polysubstance abuse Asthma Gout Surgical History History of carpal tunnel surgery H/O colonoscopy Hx of arthroscopy of left knee Hx of umbilical hernia repair Hx of right knee surgery History of surgery on arm H/O knee surgery Ankle fracture, right Family History Mother Breast cancer Father Skin cancer Hypercholesterolemia Sister Depression Mental health disorder Social History Housing: Apartment Alcohol intake: current Alcohol intake frequency: 0-2 drinks per day Patient Tobacco Use Status: Never used Tobacco e-Cigarette/Vaping Use: Never Used Second Hand Smoke Exposure: No service: No Current occupational status: disabled Cognitive needs: No Hearing needs: No Vision needs: No Questionnaire Thrive Questionnaire Date Thrive assessed: 10/14/23 AUDIT C Alcohol Use Questionnaire (AUDIT-C) 1. How often do you have a drink containing alcohol?: 4 or more times a week 2. How many drinks containing alcohol do you have on a typical day when you are drinking?: 1 or 2 3. How often do you have six or more drinks on one occasion?: Never Total Score: 4 KRISHAN-7 AMB Questionnaire KRISHAN-7 Date KRISHAN - 7 assessed: 07/04/23 Source: Developed by Drs. Eliud Proctor, Christine Trinh, Reinaldo Henry and colleagues, with an educational yanely from [employer]. Review of Systems Const Denies body aches, Denies chills, Denies fever(s) and Denies poor appetite Eyes Reports no additional complaints ENT Reports no additional complaints Card Denies chest pain and Denies edema GI Reports no additional complaints Reports no additional complaints Musc Reports no additional complaints Skin/Breast Reports as per HPI Psych Reports no additional complaints Aller/Immun Reports as per HPI Physical exam (Primary Care) Vital Signs: Last Vital Signs Pulse 96 01/17/24 13:35 BP 168/100 H 01/17/24 13:35 Pulse Ox 95 01/17/24 13:35 Oxygen Delivery Method Room Air 01/17/24 13:35 BMI result Body Mass Index 27.2 Tobacco/Smoking Status: Tobacco use Status Tobacco use date assessed 10/14/23 01/17/24 13:39 Patient Tobacco Use Status Never used Tobacco 01/17/24 13:39 e-Cigarette/Vaping Use Never Used 01/17/24 13:39 Thrive Assessment: Date of Thrive Assessment Date Thrive assessed 10/14/23 01/17/24 13:39 Const General: cooperative, healthy appearing, comfortable and no acute distress Orientation/consciousness: patient oriented x3 [facility] Head: Yes normocephalic Ears: hearing grossly normal bilaterally General nose exam: Normal external nose present Eyes General: appearance normal, both eyes and all related structures Conjunctivae: conjunctivae normal Neck Neck: Yes full ROM and Yes no lymphadenopathy Resp Effort & Inspection: normal respiratory effort Cardio Rate: regular rate Rhythm: regular rhythm Skin Other: Multiple individual red, circular, raised rash on bilateral thighs and on right medial ankle. Neuro General: patient oriented x3 Gait exam (Neuro): Normal gait present Extrem General: Yes normal to inspection, Yes full ROM and No edema Psych Affect: normal affect Attitude: cooperative Insight: Good insight present (Psych) Judgement: Good judgement present (Psych) Assessment and Plan Assessment & Plan (1) Rash: Code(s): R21 - Rash and other nonspecific skin eruption Plan: Due to the distribution of rash it appears the patient has been having a reaction to something he was sitting on. The rash is consistent with bug bites and the patient is unsure where he may have a obtained these from. We will trial antihistamines with cortisone cream to help with inflammation and itching. Please follow up if rash worsens or begins to appear on other parts of the body or if you began to have fevers. Follow up in 2 weeks after completion of doxycycline. Plan This note was constructed using voice recognition software. While every effort has been made to ensure accuracy and care aide, still areas may have been included sometimes these areas may affect the content or meeting of the given symptoms. Total time spent caring for the patient today was 30 minutes. This includes time spent before the visit reviewing the chart, time spent during the visit, and time spent after the visit and documentation. Coding Level of Care Code Est Pt Level 4 (22604) Diagnoses Rash R21
== END 2024-01-17 14:13 | disposition home or self-care (01) ==
PROVIDERS: PCP Internal Medicine
DX: R21 Rash and other nonspecific skin eruption (principal)
CPT/HCPCS: 99214

== ENCOUNTER 2024-01-20 08:39 | Outpatient (AMB) | payer OTHER, SELFPAY ==
--- NOTE | 2024-01-20 08:45 | MHC.OFFVIS ---
Vital Signs 01/20/24 08:48 Height 5 ft 9 in Weight 188 lb 0.869 oz BMI 27.8 BP 154/98 H Blood Pressure Location Rt brachial Position Sitting Pulse 71 Pulse Source Pulse Oximeter Intake Visit Reasons: Osteoporosis/Tymlos Reaction Intake Note: Patient present today for Osteoporosis/Tymlos reaction follow up visit. House Wirer Required: No Accompanied by: Self / Same As Patient Allergies moxifloxacin [From AVELOX] Allergy (Severe, Verified 01/20/24 08:51) SEVERE MOUTH/GENITAL SORES, swelling nitrofurantoin [NITROFURANTOIN] Allergy (Intermediate, Verified 01/20/24 08:51) BLOATING, bloated SEASONAL ALLERGIES Allergy (Mild, Uncoded 01/20/24 08:51) RUNNY NOSE HPI Comments Details: 63 YO Male with PMHx anxiety, depression, ETOH Dependence and hypogonadism is seen in F/U for Osteoporosis. ?1) Osteoporosis: ?First diagnosed in 2019 after his first DEXA scan 01/06/19. ?He has a history of Hypogonadism, but has been on treatment with androgel for 20 years. Pt denies history of opoid abuse ?He underwent a full biochemical workup which was all WNL. He was started on IV Reclast and received his first infusion 10/27/2021. He tolerated this well without complication. ?He is a heavy drinker, drinking up to a pint of vodka per day. ?No history of pathologic fracture or ONJ. ?Has 0-1 servings of dietary calcium per day in the form of cottage cheese and yogurt. Takes Calcium supplement 600 mg PO BID. Takes Vitamin D 2000 IU daily. ?Uses Lamotrigine and Omeprazole daily. Denies ever using anticoagulant or glucocorticoid medication. ?Does not exercise currently. ?Fracture history: ?He has had multiple traumatic fractures, and 1 atraumatic fracture of the foot. ?Height loss: ?Has lost 1 inch in height. ?Denies a history of Kidney stones. ?Denies family history of Osteoporosis or hip fracture. ?UTD on dental cleanings. Had multiple extractions over the past 1 year. No planned upcoming dental work. ?DXA dated 05/19/2021: ?FINDINGS: AP SPINE L1-L2 (excluding L3 and L4): The data of L1-L4 has been changed to exclude the L3 and L4 vertebral bodies, because degenerative changes at these levels may cause overestimation of lumbar spine density. Current: BMD 0.828 g/cm2, Z-score -3.1, T-score -3.1, osteoporosis, 2.5% decrease from baseline (<5% change is not significant). Baseline: BMD 0.849 g/cm2. LEFT FEMUR, NECK: Current: BMD 0.818 g/cm2, Z-score -1.3, T-score -1.9, osteopenia. Baseline: BMD 0.806 g/cm2. LEFT FEMUR, TOTAL: Current: BMD 0.847 g/cm2, Z-score -1.5, T-score -1.8, osteopenia, 2.8% decrease from baseline (<5% change is not significant). Baseline: BMD 0.871 g/cm2. LEFT FOREARM RADIUS 33%: BMD 0.781 g/cm2, Z-score -1.8, T-score -2.1, osteopenia. Labs: Laboratory Tests 10/25/22 10/25/22 06:30 06:30 Ur 24 Hour Volume 3025 Ur Creatinine 24 Hour 1.1 Ur Calcium 24 Hr 212 Has degenerative disc disease of spine and L wrist surgery which has healed He is currently on Tymlos 80 mg q.d. since 05/2023 . He developed a rash on the Tymlos and stop the Tymlos about 2 weeks ago [facility] Medical History (Updated 01/17/24 @ 14:16 by Zuri Lopez PA-C) Vitamin D deficiency Hypogonadism male Numbness of left hand Trigger finger of right hand Rupture of left biceps tendon Right rib fracture Tibial plateau fracture, right Hypogonadism BPH (benign prostatic hyperplasia) Osteoporosis Erectile dysfunction Diverticulitis Cholelithiasis Hypertension Hypercholesterolemia Fatty liver Polysubstance abuse Asthma Gout Surgical History History of carpal tunnel surgery H/O colonoscopy Hx of arthroscopy of left knee Hx of umbilical hernia repair Hx of right knee surgery History of surgery on arm H/O knee surgery Ankle fracture, right Family History Mother Breast cancer Father Skin cancer Hypercholesterolemia Sister Depression Mental health disorder Social History Housing: Apartment Alcohol intake: current Alcohol intake frequency: 0-2 drinks per day Patient Tobacco Use Status: Never used Tobacco e-Cigarette/Vaping Use: Never Used Second Hand Smoke Exposure: No service: No Current occupational status: disabled Cognitive needs: No Hearing needs: No Vision needs: No Assessment & Plan Assessment & Plan (1) Osteoporosis: Comment: Secondary to alcohol abuse, hypogonadism and PPI use, July 2023 Code(s): M81.0 - Age-related osteoporosis without current pathological fracture Category: Medical Plan: This 63-year-old white male with a history of osteoporosis with negative secondary workup. He was on Reclast. He also has history of hypogonadism treated by his primary care provider. Currently being treated with Tymlos. He did develop a rash on the Tymlos but was also diagnosed with Lyme disease. States rash has remained but not increased and joint pain has decreased since stopping the Tymlos Plan is to reinitiate the Tymlos to see if the joint pain recurs and/or rash gets worse. If this happens, he will have to stop the Tymlos and we could either switch him to another anabolic agent like Forteo or less desirable to alendronate Coding Level of Care Code Est Pt Level 3 (45366) Diagnoses Osteoporosis M81.0
[2024-01-20 08:48] VITALS: BP 154/98; PULSE 71; BMI 27.8
== END 2024-01-20 09:21 | disposition home or self-care (01) ==
PROVIDERS: PCP Internal Medicine; Visit Provider Internal Medicine Endocrinology, Diabetes & Metabolism
DX: M81.0 Age-related osteoporosis without current pathological fracture (principal)
CPT/HCPCS: 99213

== ENCOUNTER → 2024-01-20 08:39 | Outpatient (BNVA) | payer OTHER, SELFPAY | PROVIDERS: PCP Internal Medicine; Visit Provider Internal Medicine Endocrinology, Diabetes & Metabolism | DX: M81.0 Age-related osteoporosis without current pathological fracture (principal); E29.1 Testicular hypofunction; Z79.890 Hormone replacement therapy | CPT/HCPCS: 99212 ==

== ENCOUNTER 2024-01-31 07:55 | Outpatient (AMB) | payer OTHER, SELFPAY ==
--- NOTE | 2024-01-31 08:00 | MHC.PC.OV ---
Vital Signs 01/31/24 08:01 01/31/24 08:21 Height 5 ft 9 in Weight 188 lb BMI 27.8 BP 148/80 H 126/78 Blood Pressure Location Lt brachial Lt brachial Position Sitting Sitting Pulse 102 H Pulse Source Pulse Oximeter Pulse Oximetry (%) 99 Oxygen Delivery Method Room Air Intake Visit Reasons: discuss lyme Superintendent Car Construction Required: No Allergies moxifloxacin [From AVELOX] Allergy (Severe, Verified 01/31/24 08:01) SEVERE MOUTH/GENITAL SORES, swelling nitrofurantoin [NITROFURANTOIN] Allergy (Intermediate, Verified 01/31/24 08:01) BLOATING, bloated SEASONAL ALLERGIES Allergy (Mild, Uncoded 01/31/24 08:01) RUNNY NOSE Tobacco use date assessed: 10/14/23 Dental Screening Dental Screen Date: 07/04/23 HPI discuss lyme HPI Details 63-year-old male with past medical history of asthma, hypercholesterolemia, hypertension, BPH, osteoporosis, generalized anxiety disorder, empirically with was tolerance, fatty liver disease last seen January 2024 coming in for acute problem.? In review of the notes, patient was seen by endocrinology January 2024 for osteoporosis.?Tymlos was re-initiated with instructions if joint pain recurs or rash appears to discontinue. Patient states when he had discontinued the Tymlos the joint pain had improved greatly. He recently restarted the Tymlos daily and has mentioned his joints have felt tighter but is unsure if it is related to the weather or the medication. He also saw Dermatology for the rash on the back of his thighs and was given a cream. Has finished his 14 day course of doxycycline at this time. [facility] Medical History (Updated 01/31/24 @ 08:12 by Zuri Lopez PA-C) Vitamin D deficiency Hypogonadism male Numbness of left hand Trigger finger of right hand Rupture of left biceps tendon Right rib fracture Tibial plateau fracture, right Hypogonadism BPH (benign prostatic hyperplasia) Osteoporosis Erectile dysfunction Diverticulitis Cholelithiasis Hypertension Hypercholesterolemia Fatty liver Polysubstance abuse Asthma Gout Surgical History History of carpal tunnel surgery H/O colonoscopy Hx of arthroscopy of left knee Hx of umbilical hernia repair Hx of right knee surgery History of surgery on arm H/O knee surgery Ankle fracture, right Family History Mother Breast cancer Father Skin cancer Hypercholesterolemia Sister Depression Mental health disorder Social History Housing: Apartment Alcohol intake: current Alcohol intake frequency: 0-2 drinks per day Patient Tobacco Use Status: Never used Tobacco e-Cigarette/Vaping Use: Never Used Second Hand Smoke Exposure: No service: No Current occupational status: disabled Cognitive needs: No Hearing needs: No Vision needs: No Questionnaire Thrive Questionnaire Date Thrive assessed: 10/14/23 AUDIT C Alcohol Use Questionnaire (AUDIT-C) 1. How often do you have a drink containing alcohol?: 4 or more times a week 2. How many drinks containing alcohol do you have on a typical day when you are drinking?: 1 or 2 3. How often do you have six or more drinks on one occasion?: Never Total Score: 4 KRISHAN-7 AMB Questionnaire KRISHAN-7 Date KRISHAN - 7 assessed: 07/04/23 Source: Developed by Drs. Eliud Proctor, Christine Trinh, Reinaldo Henry and colleagues, with an educational yanely from [employer]. Review of Systems Const Denies body aches, Denies chills, Denies fever(s), Denies headache(s) and Denies poor appetite Eyes Reports no additional complaints ENT Denies dizziness and Denies headache(s) Card Denies chest pain, Denies lightheadedness and Denies dyspnea Resp Denies cough and Denies dyspnea GI Reports no additional complaints Reports no additional complaints Musc Reports no additional complaints, Denies abnormal gait and Reports arthralgias Skin/Breast Details: Rash on bilateral thighs. Small rash on medial side of left lower leg Neuro Denies abnormal gait, Denies dizziness and Denies headache(s) Psych Reports no additional complaints Physical exam (Primary Care) BMI result Body Mass Index 27.8 Tobacco/Smoking Status: Tobacco use Status Tobacco use date assessed 10/14/23 01/17/24 13:39 Patient Tobacco Use Status Never used Tobacco 01/17/24 13:39 e-Cigarette/Vaping Use Never Used 01/17/24 13:39 Thrive Assessment: Date of Thrive Assessment Date Thrive assessed 10/14/23 01/17/24 13:39 Const General: cooperative, healthy appearing, comfortable and no acute distress Orientation/consciousness: patient oriented x3 [facility] Head: Yes normocephalic Ears: hearing grossly normal bilaterally General nose exam: Normal external nose present Eyes General: appearance normal, both eyes and all related structures Conjunctivae: conjunctivae normal Neck Neck: Yes full ROM and Yes no lymphadenopathy Resp Effort & Inspection: normal respiratory effort Auscultation: clear to auscultation bilaterally, no crackles, no rales, no rhonchi and no wheezes Cardio Rate: regular rate Rhythm: regular rhythm Skin Other: Small area of dry skin on medial aspect left lower leg. Neuro General: patient oriented x3 Gait exam (Neuro): Normal gait present Extrem General: Yes normal to inspection, Yes full ROM and No edema Psych Affect: normal affect Attitude: cooperative Insight: Good insight present (Psych) Judgement: Good judgement present (Psych) Assessment and Plan Assessment & Plan (1) Lyme disease: Code(s): A69.20 - Lyme disease, unspecified Plan: Patient tested positive for Lyme disease at urgent care and completed 14 day course of doxycycline for treatment. He denies any fevers, joint pains, or other symptoms. We will continue to monitor symptoms. Rash on lower leg has mostly resolved. Patient would like to retest to see if he is still positive for Lyme disease however informed patient level still may be elevated for many days at after treatment and testing is not routinely performed. (2) Rash: Code(s): R21 - Rash and other nonspecific skin eruption Plan: Patient was seen by dermatology for rash on bilateral legs. Was given a cream for treatment. Continue to monitor. Plan This note was constructed using voice recognition software. While every effort has been made to ensure accuracy and director of early childhood, still areas may have been included sometimes these areas may affect the content or meeting of the given symptoms. Total time spent caring for the patient today was 30 minutes. This includes time spent before the visit reviewing the chart, time spent during the visit, and time spent after the visit and documentation. Orders: Orders Lyme IgG/IgM w/reflex to WB Today A69.20 - Lyme disease, unspecified Coding Level of Care Code Est Pt Level 3 (22312) Diagnoses Lyme disease A69.20 Rash R21
[2024-01-31 08:01] VITALS: BP 148/80; PULSE 102; O2SAT 99; BMI 27.8
[2024-01-31 08:21] VITALS: BP 126/78
== END 2024-01-31 08:31 | disposition home or self-care (01) ==
PROVIDERS: PCP Internal Medicine
DX: A69.20 Lyme disease, unspecified (principal); R21 Rash and other nonspecific skin eruption
CPT/HCPCS: 99213

== ENCOUNTER 2024-02-06 13:03 | Outpatient (REF) | payer OTHER, SELFPAY ==
[2024-02-09 23:44] LABS: Lyme Blot 1.05 index
[2024-02-10 17:01] LABS: 18 KD (IgG) Band NON-REACTIVE; 23 KD (IgG) Band REACTIVE; 23 KD (IgM) Band NON-REACTIVE; 28 KD (IgG) Band NON-REACTIVE; 30 KD (IgG) Band NON-REACTIVE; 39 KD (IgM) Band NON-REACTIVE; 39KD (IgG) Band NON-REACTIVE; 41 KD (IgM) Band NON-REACTIVE; 41KD (IgG) Band REACTIVE; 45 KD (IgG) Band NON-REACTIVE; 58 KD (IgG) Band NON-REACTIVE; 66 KD (IgG) Band NON-REACTIVE; 93 KD (IgG) Band REACTIVE; Lyme IgG Blot Interp NEGATIVE (NEGATIVE); Lyme IgM Blot Interp NEGATIVE (NEGATIVE)
[2024-02-10 17:02] LABS: Lyme Abs Screen EQUIVOCAL
== END 2024-02-06 13:04 | disposition home or self-care (01) ==
LOC: HO.LAB 13:03
DX: A69.20 Lyme disease, unspecified (principal)
CPT/HCPCS: 36415; 86617; 86618

== ENCOUNTER 2024-02-11 09:08 | Outpatient (AMB) | payer OTHER, SELFPAY ==
--- NOTE | 2024-02-11 09:09 | MHC.OFFVIS ---
Intake Visit Reasons: 3m follow up Intake Note: Patient is Present for 3M Follow Up Urology Medication: Tadalafil, Sildenafil, Testosterone Antibiotic Allergies: Nitrofuratoin(Macrobid)Moxiflocacin Blood Thinners: None House Decorator Required: No Allergies moxifloxacin [From AVELOX] Allergy (Severe, Verified 02/11/24 09:14) SEVERE MOUTH/GENITAL SORES, swelling nitrofurantoin [NITROFURANTOIN] Allergy (Intermediate, Verified 02/11/24 09:14) BLOATING, bloated SEASONAL ALLERGIES Allergy (Mild, Uncoded 02/11/24 09:14) RUNNY NOSE HPI Comments Details: Devon WELCH is a very pleasant male. They are a patient of Dr Atkinson. They are seen in the office today for the following urologic conditions. ?- erectile dysfunction - low testosterone - incomplete bladder emptying - premature ejaculation He had some concerns regarding other medications Refills provided Erectile dysfunction and BPH responds well to daily tadalafil Prescription provided Six-month follow-up Hypogonadism Current treatment injectable testosterone Laboratories - 01/04 T 674 - 08/08 T 300 P 0.4 H 46.9 F7.7, 02/05 T 481 0.52 50.5, 05/08 T 560, 05/09 515 1.0 51.3, 11/07 T 522 50.5 Erectile dysfunction:? Has been using daily tadalafil ?Partial responses Addition of maximal sildenafil - Decreased premature ejaculation with paroxetine ? Symptoms have been present for/since?Ongoing.? Current treatment includes?daily tadalafil.? Prior therapies include?oral medications.? At this time he experiences erections?are partial and adequate for vaginal penetration, that undergo rapid detumesence after penetration, DENISA 8-11 Moderate ED.? Currently they are?is not in a relationship.? Associated problems? hypertension ?Yes ? diabetes ?No ? dyslipidemia ?Yes ? Medications include(s)?antidepressant medication.? Overall he is ?satisfied with the current management.? Therapeutic plan includes?increasing dose of oral medication daily Lower Urinary Tract Symptoms:? Good response with daily tadalafil. ? Current visit is for?further evaluation of, lower urinary tract symptoms.? Current treatment includes?observation.? Prostate Symptom Score?Moderate (9-19), Bother 3.? Symptoms include?incomplete emptying, weak stream, and are progressing.? Prostate volume?30-50gm.? Testing at next visit will include?bladder scan.? Treatment plan?continue with current medications [facility] Medical History (Updated 01/31/24 @ 08:12 by Zuri Lopez PA-C) Vitamin D deficiency Hypogonadism male Numbness of left hand Trigger finger of right hand Rupture of left biceps tendon Right rib fracture Tibial plateau fracture, right Hypogonadism BPH (benign prostatic hyperplasia) Osteoporosis Erectile dysfunction Diverticulitis Cholelithiasis Hypertension Hypercholesterolemia Fatty liver Polysubstance abuse Asthma Gout Surgical History History of carpal tunnel surgery H/O colonoscopy Hx of arthroscopy of left knee Hx of umbilical hernia repair Hx of right knee surgery History of surgery on arm H/O knee surgery Ankle fracture, right Family History Mother Breast cancer Father Skin cancer Hypercholesterolemia Sister Depression Mental health disorder Social History Housing: Apartment Alcohol intake: current Alcohol intake frequency: 0-2 drinks per day Patient Tobacco Use Status: Never used Tobacco e-Cigarette/Vaping Use: Never Used Second Hand Smoke Exposure: No service: No Current occupational status: disabled Cognitive needs: No Hearing needs: No Vision needs: No Review of Systems Const Denies chills and Denies fever(s) Card Reports no additional complaints and Denies syncope Resp Denies cough GI Denies abdominal pain and Denies heartburn Reports as per HPI and Denies change in libido Neuro Denies syncope Psych Denies change in libido Endo Denies change in libido Physical Exam Const General: cooperative, healthy appearing, comfortable and no acute distress Orientation/consciousness: patient oriented x3 HEENT Face and sinus: Yes normal facial exam Mouth: moist mucous membranes Neck Neck: Yes normal visual inspection, Yes full ROM and Yes trachea midline Chest Chest palpation & inspection: normal inspection of the chest Resp Effort & Inspection: normal respiratory effort, able to speak in complete sentences and no respiratory distress GI Inspection: Yes normal to inspection Back/Spine/Pelvis Cervical Spine: normal cervical lordosis Thoracic/Lumbar Spine: thoracic and lumbar spine normal to inspection Skin General skin exam: no rashes or lesions noted Neuro General: patient oriented x3, gait normal, tone normal and moves all extremities Extrem General: Yes normal to inspection and Yes capillary refill normal Assessment & Plan Assessment & Plan (1) Urinary incontinence: Code(s): R32 - Unspecified urinary incontinence Category: Medical (2) Premature ejaculation: Code(s): F52.4 - Premature ejaculation Category: Medical (3) Bladder outlet obstruction: Code(s): N32.0 - Bladder-neck obstruction Category: Medical Plan Three-month follow-up lab work was plan Orders: Orders Complete Blood Count no Diff 3 Months E29.1 - Testicular hypofunction Prostate Specific Antigen 3 Months E29.1 - Testicular hypofunction Testosterone, Total 3 Months E29.1 - Testicular hypofunction Patient Instructions: Imaging studies, laboratory and physical exam results were discussed and reviewed in detail. No major barriers to patient understanding were identified. An opportunity to ask questions regarding the treatment plan was provided. All questions were answered. The patient expressed understanding and agreement with the above treatment plan. The patient is aware they should contact our office by phone for worsening of their current condition or the appearance of new urologic symptoms. Compliance is encouraged with any medications and followup testing that is ordered. It is a privilege to participate in the urologic care of your patient. If you have any questions or concerns regarding treatment for the above conditions, or other urologic issues, please do not hesitate to contact me. The office telephone contact is [phone]. This note is constructed using voice recognition software. While every effort has been made to ensure accuracy conventional underwriter errors may have been included. Yours sincerely, Dr Zach Huerta MD, DEE [facility] - Urology Providers of Expert, Compassionate Care for the Genitourinary System Coding Level of Care Code Est Pt Level 3 (87067) Diagnoses Urinary incontinence R32 Premature ejaculation F52.4 Bladder outlet obstruction N32.0
== END 2024-02-11 09:59 | disposition home or self-care (01) ==
PROVIDERS: PCP Internal Medicine; Visit Provider Urology
DX: R32 Unspecified urinary incontinence (principal); F52.4 Premature ejaculation; N32.0 Bladder-neck obstruction
CPT/HCPCS: 99213

== ENCOUNTER → 2024-02-11 09:08 | Outpatient (BNVA) | payer OTHER, SELFPAY | PROVIDERS: PCP Internal Medicine; Visit Provider Urology | DX: R32 Unspecified urinary incontinence (principal); F52.4 Premature ejaculation; N32.0 Bladder-neck obstruction | CPT/HCPCS: 99212 ==

== ENCOUNTER 2024-06-23 09:36 | Outpatient (AMB) | payer OTHER, SELFPAY ==
--- NOTE | 2024-06-23 09:39 | MHC.OFFVIS ---
Vital Signs 06/23/24 09:45 Height 5 ft 9.16 in Weight 192 lb 0.362 oz BMI 28.2 BP 128/72 Blood Pressure Location Rt brachial Position Sitting Pulse 107 H Pulse Source Pulse Oximeter Intake Visit Reasons: Osteoporosis Intake Note: Patient present today for Osteoporosis follow up. Patient reports he d/c Tymlos approx 3 months ago due to aching joints and bones. Patient stated he was having welts on his legs. Would like to know if it should be restarted. 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05 % 1 appl topical BID dextroamphetamine-amphetamine 20 mg 1 tab PO BID fluticasone propionate 50 mcg/actuation (Allergy Relief (fluticasone)) 2 sprays intranasal DAILY fluticasone propionate 110 mcg/actuation (Flovent HFA) 2 puffs inhalation BID folic acid 1 mg PO DAILY gabapentin 600 mg PO BID gabapentin mg PO ipratropium-albuterol 20-100 mcg/actuation (Combivent Respimat) 1 puff inhalation Q6H lamotrigine 100 mg PO DAILY 90 days lisinopril 40 mg PO DAILY meloxicam 15 mg PO DAILY needle (disp) 22 G (BD Regular Bevel [place]) As directed needle (disp) 25 gauge (BD Regular Bevel [place]) As directed - for testosterone subcutaneous injection omeprazole 20 mg PO DAILY paroxetine HCl 40 mg PO DAILY sildenafil 100 mg PO DAILY PRN 30 days syringe (disposable) (BD Luer-Sorin Syringe) Testosterone injection weekly tadalafil 5 mg PO DAILY 90 days testosterone cypionate (Depo-Testosterone) 80 mg (0.4 mL) subcut QWEEK 4 weeks thiamine HCl (vitamin B1) (Vitamin B-1) 100 mg PO DAILY HPI Comments Details: 63 YO Male with PMHx anxiety, depression, ETOH Dependence and hypogonadism is seen in F/U for Osteoporosis. ?1) Osteoporosis: ?First diagnosed in 2019 after his first DEXA scan 01/06/19. ?He has a history of Hypogonadism, but has been on treatment with androgel for 20 years. Pt denies history of opoid abuse ?He underwent a full biochemical workup which was all WNL. He was started on IV Reclast and received his first infusion 10/27/2021. He tolerated this well without complication. ?He is a heavy drinker, drinking up to a pint of vodka per day. ?No history of pathologic fracture or ONJ. ?Has 0-1 servings of dietary calcium per day in the form of cottage cheese and yogurt. Takes Calcium supplement 600 mg PO BID. Takes Vitamin D 2000 IU daily. ?Uses Lamotrigine and Omeprazole daily. Denies ever using anticoagulant or glucocorticoid medication. ?Does not exercise currently. ?Fracture history: ?He has had multiple traumatic fractures, and 1 atraumatic fracture of the foot. ?Height loss: ?Has lost 1 inch in height. ?Denies a history of Kidney stones. ?Denies family history of Osteoporosis or hip fracture. ?UTD on dental cleanings. Had multiple extractions over the past 1 year. No planned upcoming dental work. ?DXA dated 05/19/2021: ?FINDINGS: AP SPINE L1-L2 (excluding L3 and L4): The data of L1-L4 has been changed to exclude the L3 and L4 vertebral bodies, because degenerative changes at these levels may cause overestimation of lumbar spine density. Current: BMD 0.828 g/cm2, Z-score -3.1, T-score -3.1, osteoporosis, 2.5% decrease from baseline (<5% change is not significant). Baseline: BMD 0.849 g/cm2. LEFT FEMUR, NECK: Current: BMD 0.818 g/cm2, Z-score -1.3, T-score -1.9, osteopenia. Baseline: BMD 0.806 g/cm2. LEFT FEMUR, TOTAL: Current: BMD 0.847 g/cm2, Z-score -1.5, T-score -1.8, osteopenia, 2.8% decrease from baseline (<5% change is not significant). Baseline: BMD 0.871 g/cm2. LEFT FOREARM RADIUS 33%: BMD 0.781 g/cm2, Z-score -1.8, T-score -2.1, osteopenia. Labs: Laboratory Tests 10/25/22 10/25/22 06:30 06:30 Ur 24 Hour Volume 3025 Ur Creatinine 24 Hour 1.1 Ur Calcium 24 Hr 212 Has degenerative disc disease of spine and L wrist surgery which has healed He was on Tymlos 80 mg q.d. but had to stop due to rash . Stopped 3 mos ago . Took 9 mos [facility], [facility] Medical History (Updated 01/31/24 @ 08:12 by Zuri Lopez PA-C) Vitamin D deficiency Hypogonadism male Numbness of left hand Trigger finger of right hand Rupture of left biceps tendon Right rib fracture Tibial plateau fracture, right Hypogonadism BPH (benign prostatic hyperplasia) Osteoporosis Erectile dysfunction Diverticulitis Cholelithiasis Hypertension Hypercholesterolemia Fatty liver Polysubstance abuse Asthma Gout Surgical History History of carpal tunnel surgery H/O colonoscopy Hx of arthroscopy of left knee Hx of umbilical hernia repair Hx of right knee surgery History of surgery on arm H/O knee surgery Ankle fracture, right Family History Mother Breast cancer Father Skin cancer Hypercholesterolemia Sister Depression Mental health disorder Social History Housing: Apartment Alcohol intake: current Alcohol intake frequency: 0-2 drinks per day Patient Tobacco Use Status: Never used Tobacco e-Cigarette/Vaping Use: Never Used Second Hand Smoke Exposure: No service: No Current occupational status: disabled Cognitive needs: No Hearing needs: No Vision needs: No Assessment & Plan Assessment & Plan (1) Osteoporosis: Comment: Secondary to alcohol abuse, hypogonadism and PPI use, July 2023 Code(s): M81.0 - Age-related osteoporosis without current pathological fracture Category: Medical Plan: This 63-year-old white male with a history of osteoporosis with negative secondary workup. He was on Reclast. He also has history of hypogonadism treated by his primary care provider. Was treated with Tymlos but became intolerant to stop without taking full course and took a total of 6 months After long discussion with the patient, we decided to reinitiate the Tymlos to see if the patient's symptoms return. If they do not return, we will shoot for a full 18 month course of Tymlos to gain the maximum benefit followed by anti resorptive therapy like Reclast or alendronate. I will bring the patient back in 1 month's time to see how he is doing Coding Level of Care Code Est Pt Level 3 (80646) Diagnoses Osteoporosis M81.0
[2024-06-23 09:45] VITALS: BP 128/72; PULSE 107; BMI 28.2
== END 2024-06-23 10:20 | disposition home or self-care (01) ==
PROVIDERS: PCP Internal Medicine; Visit Provider Internal Medicine Endocrinology, Diabetes & Metabolism
DX: M81.0 Age-related osteoporosis without current pathological fracture (principal)
CPT/HCPCS: 99213

== ENCOUNTER → 2024-06-23 09:36 | Outpatient (BNVA) | payer OTHER, SELFPAY | PROVIDERS: PCP Internal Medicine; Visit Provider Internal Medicine Endocrinology, Diabetes & Metabolism | DX: M81.0 Age-related osteoporosis without current pathological fracture (principal) | CPT/HCPCS: 99212 ==

== ENCOUNTER 2024-07-08 14:45 | Outpatient (AMB) | payer OTHER, SELFPAY ==
--- NOTE | 2024-07-08 14:46 | A.OFFVIS_ITS ---
Intake Visit Reasons: PSA/Testo/CBC Intake Note: Patient is present for PSA/TESTO/CBC Urology Medication:SILDENAFIL,TESTOSTERONE,TADALAFIL,VITMAIN B1 Antibiotic Allergy:MOXIFLOXACIN,NITROFURANTION Blood Thinner:NONE [employer] Required: No Allergies moxifloxacin [From AVELOX] Allergy (Severe, Verified 07/08/24 14:47) SEVERE MOUTH/GENITAL SORES, swelling nitrofurantoin [NITROFURANTOIN] Allergy (Intermediate, Verified 07/08/24 14:47) BLOATING, bloated SEASONAL ALLERGIES Allergy (Mild, Uncoded 07/08/24 14:47) RUNNY NOSE HPI Comments Details: Devon WELCH is a very pleasant male. They are a patient of Dr Atkinson. They are seen in the office today for the following urologic conditions. ?- erectile dysfunction - low testosterone - incomplete bladder emptying - premature ejaculation Telemedicine Evaluation 15 min Consultation [employer] Six-month follow-up Erectile dysfunction and BPH responds well to daily tadalafil T labs - refill medications, T currently pending, reminder to draw labs 2 weeks prior to visit Hypogonadism Current treatment injectable testosterone Laboratories - 01/04 T 674 - 08/08 T 300 P 0.4 H 46.9 F7.7, 02/05 T 481 0.52 50.5, 05/08 T 560, 05/09 515 1.0 51.3, 11/07 T 522 50.5 Erectile dysfunction:? Has been using daily tadalafil ?Partial responses Addition of maximal sildenafil - Decreased premature ejaculation with paroxetine ? Symptoms have been present for/since?Ongoing.? Current treatment includes?daily tadalafil.? Prior therapies include?oral medications.? At this time he experiences erections?are partial and adequate for vaginal penetration, that undergo rapid detumesence after penetration, DENISA 8- 11 Moderate ED.? Currently they are?is not in a relationship.? Associated problems? hypertension ?Yes ? diabetes ?No ? dyslipidemia ?Yes ? Medications include(s)?antidepressant medication.? Overall he is ?satisfied with the current management.? Therapeutic plan includes?increasing dose of oral medication daily Lower Urinary Tract Symptoms:? Good response with daily tadalafil. ? Current visit is for?further evaluation of, lower urinary tract symptoms.? Current treatment includes?observation.? Prostate Symptom Score?Moderate (9-19), Bother 3.? Symptoms include?incomplete emptying, weak stream, and are progressing.? Prostate volume?30-50gm.? Testing at next visit will include?bladder scan.? Treatment plan?continue with current medications [facility] Medical History (Updated 01/31/24 @ 08:12 by Zuri Lopez PA-C) Vitamin D deficiency Hypogonadism male Numbness of left hand Trigger finger of right hand Rupture of left biceps tendon Right rib fracture Tibial plateau fracture, right Hypogonadism BPH (benign prostatic hyperplasia) Osteoporosis Erectile dysfunction Diverticulitis Cholelithiasis Hypertension Hypercholesterolemia Fatty liver Polysubstance abuse Asthma Gout Surgical History History of carpal tunnel surgery H/O colonoscopy Hx of arthroscopy of left knee Hx of umbilical hernia repair Hx of right knee surgery History of surgery on arm H/O knee surgery Ankle fracture, right Family History Mother Breast cancer Father Skin cancer Hypercholesterolemia Sister Depression Mental health disorder Social History Housing: Apartment Alcohol intake: current Alcohol intake frequency: 0-2 drinks per day Patient Tobacco Use Status: Never used Tobacco e-Cigarette/Vaping Use: Never Used Second Hand Smoke Exposure: No service: No Current occupational status: disabled Cognitive needs: No Hearing needs: No Vision needs: No Review of Systems Const All systems reviewed & are unremarkable except as noted in HPI and below Reports no additional complaints Resp Reports no additional complaints GI Reports no additional complaints Reports as per HPI Musc Reports no additional complaints Physical Exam Telemedicine evaluation Appropriate responses Regular breathing rate and rhythm HEENT Head: Yes normal to inspection Ears: hearing grossly normal bilaterally Eyes General: appearance normal, both eyes and all related structures Neck Neck: Yes normal visual inspection Chest Chest palpation & inspection: normal inspection of the chest Resp Effort & Inspection: normal respiratory effort and able to speak in complete sentences Telehealth Telehealth Telehealth Platform: [employer] Location of provider rendering services: practice address Location of patient: address on file Patient Identification confirmed using: Name, : Yes Telehealth method: video Patient verbally consented to treatment: Yes Patient verbally consented to billing insurance company: Yes Patient informed of any privacy concerns related to visit: Yes Minutes spent on Phone/Video with Pt.: 15 Assessment & Plan Assessment & Plan (1) Bladder outlet obstruction: Code(s): N32.0 - Bladder-neck obstruction Category: Medical (2) Hypogonadism in male: Code(s): E29.1 - Testicular hypofunction Category: Medical Plan Refill meds Orders: Orders Complete Blood Count no Diff 6 Months E29.1 - Testicular hypofunction Prostate Specific Antigen 6 Months E29.1 - Testicular hypofunction Testosterone, Total 6 Months E29.1 - Testicular hypofunction Medications: New needle (disp) 18 G (BD Regular Bevel [place]) As directed - draw up testosterone 30 ea 0RF E29.1 - Testicular hypofunction needle (disp) 25 gauge (BD Regular Bevel [place]) As directed - for testosterone subcutaneous injection 30 ea 0RF E29.1 - Testicular hypofunction Refilled tadalafil 5 mg PO DAILY 90 days 90 tabs 1RF E29.1 - Testicular hypofunction testosterone cypionate (Depo-Testosterone) Dispose of vial after use 80 mg (0.4 mL) subcut QWEEK 4 weeks 4 mL 5RF E29.1 - Testicular hypofunction, [id number] Discontinued needle (disp) 25 gauge (BD Regular Bevel [place]) Discontinued Reason: Patient Completed Course As directed - for testosterone subcutaneous injection 30 ea 0RF E29.1 - Testicular hypofunction needle (disp) 22 G (BD Regular Bevel [place]) Discontinued Reason: Patient Completed Course As directed 20 ea 0RF E29.1 - Testicular hypofunction, E34.9 - Endocrine disorder, unspecified Patient Instructions: Imaging studies, laboratory and physical exam results were discussed and reviewed in detail. No major barriers to patient understanding were identified. An opportunity to ask questions regarding the treatment plan was provided. All questions were answered. The patient expressed understanding and agreement with the above treatment plan. The patient is aware they should contact our office by phone for worsening of their current condition or the appearance of new urologic symptoms. Compliance is encouraged with any medications and followup testing that is ordered. It is a privilege to participate in the urologic care of your patient. If you have any questions or concerns regarding treatment for the above conditions, or other urologic issues, please do not hesitate to contact me. The office telephone contact is [phone]. This note is constructed using voice recognition software. While every effort has been made to ensure accuracy computer systems architect errors may have been included. Yours sincerely, Dr Zach Huerta MD, DEE [facility] - Urology Providers of Expert, Compassionate Care for the Genitourinary System Coding Level of Care Code Tele Est Pt Level 3 (02791) Diagnoses Bladder outlet obstruction N32.0 Hypogonadism in male E29.1
== END 2024-07-08 15:50 | disposition home or self-care (01) ==
LOC: HO.HUSH 14:45
PROVIDERS: PCP Internal Medicine; Visit Provider Urology
DX: N32.0 Bladder-neck obstruction (principal); E29.1 Testicular hypofunction
CPT/HCPCS: 99213

== ENCOUNTER → 2024-07-08 14:45 | Outpatient (BNVA) | payer OTHER, SELFPAY | PROVIDERS: PCP Internal Medicine; Visit Provider Urology ==

== ENCOUNTER 2024-07-21 09:26 | Outpatient (AMB) | payer OTHER, SELFPAY ==
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
[2024-07-21 09:31] VITALS: BP 138/86; PULSE 92; O2SAT 98; BMI 28.8
== END 2024-07-21 09:43 | disposition home or self-care (01) ==
PROVIDERS: PCP Internal Medicine; Visit Provider Internal Medicine Endocrinology, Diabetes & Metabolism
DX: M81.0 Age-related osteoporosis without current pathological fracture (principal)
CPT/HCPCS: 99213

== ENCOUNTER → 2024-07-21 09:26 | Outpatient (BNVA) | payer OTHER, SELFPAY | PROVIDERS: PCP Internal Medicine; Visit Provider Internal Medicine Endocrinology, Diabetes & Metabolism | DX: M81.0 Age-related osteoporosis without current pathological fracture (principal) | CPT/HCPCS: 99212 ==

== ENCOUNTER 2024-08-27 13:00 | Outpatient (AMB) | payer OTHER, SELFPAY ==
[2024-08-27 13:04] VITALS: BP 134/80; PULSE 90; O2SAT 98; BMI 29.3
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
== END 2024-08-27 14:00 | disposition home or self-care (01) ==
LOC: HO.HMCH 13:01
PROVIDERS: PCP Internal Medicine; Visit Provider Internal Medicine
DX: I10 Essential (primary) hypertension (principal); M81.0 Age-related osteoporosis without current pathological fracture; E78.00 Pure hypercholesterolemia, unspecified; N40.0 Benign prostatic hyperplasia without lower urinary tract symptoms

== ENCOUNTER → 2024-08-27 13:00 | Outpatient (BNVA) | payer OTHER, SELFPAY | PROVIDERS: PCP Internal Medicine; Visit Provider Internal Medicine | DX: E29.1 Testicular hypofunction (principal); M81.0 Age-related osteoporosis without current pathological fracture; I10 Essential (primary) hypertension; N40.0 Benign prostatic hyperplasia without lower urinary tract symptoms | CPT/HCPCS: 99212 ==

== ENCOUNTER 2024-09-01 13:25 | Outpatient (REF) | payer OTHER, SELFPAY ==
[2024-09-01 13:48] LABS: MANUAL DIFF FLAG NO
[2024-09-01 14:03] LABS: Basophils Absolute Auto 0.1 X10*3/uL (0.0-0.2); Basophils Percent Auto 1.1 % (0-2); Eosinophils Absolute Auto 0.1 X10*3/uL (0.0-0.4); Eosinophils Percent Auto 1.5 % (0-4); Hematocrit 49.1 % (42.0-52.0); Hemoglobin 16.9 g/dl (14.0-18.0); Imm Gran Abs Auto 0.02 X10*3/uL (0.00-0.03); Imm Gran Pct Auto 0.3 % (0.0-0.4); Lymphocytes Absolute Auto 1.9 X10*3/uL (1.2-4.9); Lymphocytes Percent Auto 27.1 % (20-40); Mean Corpuscular HGB Conc 34.4 g/dl (31.0-36.0); Mean Corpuscular Hemoglobin 32.9 pg (27.0-33.0); Mean Corpuscular Volume 95.5 fL (80.0-98.0); Mean Platelet Volume 9.1 fL (9.4-12.4); Monocytes Absolute Auto 1.3 X10*3/uL (0.1-1.2); Neutrophils Absolute Auto 3.7 x10*3/uL (2.0-8.3); Platelet Count 275 X10*3/uL (160-400); Red Blood Count 5.14 X10*6/uL (4.60-5.80); Red Cell Distribution Width 12.6 % (11.0-16.0); White Blood Count 7.2 X10*3/uL (4.8-10.8)
[2024-09-01 14:17] LABS: Estimated Average Glucose 117 mg/dL; Hemoglobin A1c % 5.7 % (<6.0)
[2024-09-01 14:25] LABS: Appearance Urine Clear; Color Urine Yellow; Glucose Urine UA Negative (Negative); Leukocyte Esterase Urine Negative (Negative); Nitrite Urine Negative (Negative); Specific Gravity - Urine 1.015 (1.005-1.025); Urine Blood Negative (Negative); Urine Ketones Negative (Negative); Urine Protein Negative (Neg-Trace)
[2024-09-01 14:44] LABS: B Type Natriuretic Peptide 27 pg/mL (<100)
[2024-09-01 15:00] LABS: Alanine Aminotransferase 89 U/L (0-40); Albumin Level 4.6 g/dL (3.5-5.0); Alkaline Phosphatase 83 U/L (39-117); Anion Gap 13 (12-20); Aspartate Amino Transferase 86 U/L (5-37); Bilirubin Total 0.7 mg/dL (0.0-1.0); Blood Urea Nitrogen 18 mg/dL (9-16); Calcium 9.8 mg/dL (8.4-10.2); Carbon Dioxide 27 mmol/L (22-29); Chloride 98 mmol/L (96-108); Cholesterol 158 mg/dL (<200); Estimated Glomerular Filt Rate > 60; Free T4 (Free Thyroxine) 1.01 ng/dL (0.71-1.85); Glucose Random 98 mg/dL (60-115); HDL Cholesterol 57 mg/dL (>40); LDL Cholesterol Calculated 92 mg/dL (<100); Magnesium 1.7 mg/dL (1.6-2.6); Potassium 4.3 mmol/L (3.3-5.1); Sodium 134 mmol/L (135-145); Thyroid Stimulating Hormone 1.41 uIU/mL (0.32-4.0); Total Protein 8.4 g/dL (6.5-8.0); Triglycerides 48 mg/dL (<150)
[2024-09-01 15:15] LABS: Folate > 20.0 ng/mL (> or = 4.0); Prostate Specific Antigen 1.22 ng/mL (<0.05-4.0); Vitamin B12 390 pg/mL (200-900)
== END 2024-09-01 13:26 | disposition home or self-care (01) ==
LOC: HO.LAB 13:25
PROVIDERS: PCP Internal Medicine; Visit Provider Internal Medicine
DX: R73.01 Impaired fasting glucose (principal); R30.0 Dysuria; E29.1 Testicular hypofunction; E78.00 Pure hypercholesterolemia, unspecified; Z12.5 Encounter for screening for malignant neoplasm of prostate
CPT/HCPCS: 36415; 80053; 80061; 81003; 82607; 82746; 83036; 83735; 83880; 84153; 84439; 84443; 85025

== ENCOUNTER 2024-09-10 10:07 | Outpatient (AMB) | payer OTHER, SELFPAY ==
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
[2024-09-10 10:09] VITALS: BP 136/88; PULSE 86; O2SAT 99; BMI 28.0
== END 2024-09-10 10:46 | disposition home or self-care (01) ==
LOC: HO.ENCR 10:08
PROVIDERS: PCP Internal Medicine; Visit Provider Internal Medicine Endocrinology, Diabetes & Metabolism
DX: M81.0 Age-related osteoporosis without current pathological fracture (principal)
CPT/HCPCS: 99213

== ENCOUNTER → 2024-09-10 10:07 | Outpatient (BNVA) | payer OTHER, SELFPAY | PROVIDERS: PCP Internal Medicine; Visit Provider Internal Medicine Endocrinology, Diabetes & Metabolism | DX: M81.0 Age-related osteoporosis without current pathological fracture (principal) | CPT/HCPCS: 99212 ==

== ENCOUNTER 2024-10-05 08:40 | Outpatient (AMB) | payer OTHER, SELFPAY ==
--- NOTE | 2024-10-05 08:42 | A.OFFPC_ITS ---
Intake Visit Reasons: cough Allergies moxifloxacin [From AVELOX] Allergy (Severe, Verified 10/05/24 08:43) SEVERE MOUTH/GENITAL SORES, swelling nitrofurantoin [NITROFURANTOIN] Allergy (Intermediate, Verified 10/05/24 08:43) BLOATING, bloated amlodipine Adverse Reaction (Intermediate, Verified 10/05/24 08:43) leg swelling SEASONAL ALLERGIES Allergy (Mild, Uncoded 10/05/24 08:43) RUNNY NOSE Tobacco use date assessed: 08/27/24 Dental Screening Dental Screen Date: 08/27/24 HPI cough HPI Details 3 weeks ago cough, tired, no fevers, pro ductive of phlegm, , sob, deny wheezing, no diarrhea. [facility] Medical History (Updated 10/05/24 @ 08:53 by Lillian Atkinson MD) Vitamin D deficiency Hypogonadism male Numbness of left hand Trigger finger of right hand Rupture of left biceps tendon Right rib fracture Tibial plateau fracture, right Hypogonadism BPH (benign prostatic hyperplasia) Osteoporosis Erectile dysfunction Diverticulitis Cholelithiasis Hypertension Hypercholesterolemia Fatty liver Polysubstance abuse Asthma Gout Surgical History History of carpal tunnel surgery H/O colonoscopy Hx of arthroscopy of left knee Hx of umbilical hernia repair Hx of right knee surgery History of surgery on arm H/O knee surgery Ankle fracture, right Family History Mother Breast cancer Father Skin cancer Hypercholesterolemia Sister Depression Mental health disorder Social History Housing: Apartment Alcohol intake: current Alcohol intake frequency: 0-2 drinks per day Patient Tobacco Use Status: Never used Tobacco Tobacco use type: Cigarette e-Cigarette/Vaping Use: Never Used Second Hand Smoke Exposure: No service: No Current occupational status: disabled Cognitive needs: No Hearing needs: No Vision needs: No Questionnaire Thrive Questionnaire Date Thrive assessed: 08/27/24 KRISHAN-7 AMB Questionnaire KRISHAN-7 Date KRISHAN - 7 assessed: 08/27/24 Source: Developed by Drs. Eliud Proctor, Christine Trinh, Reinaldo Henry and colleagues, with an educational yanely from [employer]. Physical exam (Primary Care) Tobacco/Smoking Status: Tobacco use Status Tobacco use date assessed 08/27/24 10/05/24 08:43 Patient Tobacco Use Status Never used Tobacco 10/05/24 08:43 Tobacco use type Cigarette 10/05/24 08:43 e-Cigarette/Vaping Use Never Used 10/05/24 08:43 Thrive Assessment: Date of Thrive Assessment Date Thrive assessed 08/27/24 10/05/24 08:43 Telehealth Telehealth Telehealth Platform: [employer] Location of provider rendering services: practice address Location of patient: address on file Patient Identification confirmed using: Name, : Yes Telehealth method: video Patient verbally consented to treatment: Yes Patient verbally consented to billing insurance company: Yes Patient informed of any privacy concerns related to visit: Yes Minutes spent on Phone/Video with Pt.: 25 Coding Level of Care Code Tele Est Pt Level 4 (12943) Diagnoses Acute bronchitis J20.9 Impaired fasting blood sugar R73.01 Fatty liver K76.0 Assessment & Plan Assessment & Plan (1) Acute bronchitis: Code(s): J20.9 - Acute bronchitis, unspecified Category: Medical (2) Impaired fasting blood sugar: Code(s): R73.01 - Impaired fasting glucose Category: Medical Plan: Decrease the amount of carbohydrate intake, pasta, bread, rice and potatoes are all sugar and that is aside from all the sweet stuff, remember that fruits are good but they are Sweet also. (3) Fatty liver: Code(s): K76.0 - Fatty (change of) liver, not elsewhere classified Category: Medical Plan: Discussed about abstaining from alcohol. Discussed about low-fat diet and exercise Plan History of Present Illness The patient is a 64-year-old male presenting with an acute cough that has persisted for two and a half to three weeks. This cough, described as violent and non-productive, has been worsening in severity, causing significant discomfort including musculoskeletal pain. The patient associates the problem with annual respiratory infections managed previously with antibiotics, but notes an absence of fever this time. The sputum has changed from yellow to brown. The patient denies wheezing, but describes breathlessness and lightheadedness. No diarrhea has been reported. The patient's medical history includes asthma, essential hypertension, hypercholesterolemia, polysubstance abuse, benign prostatic hyperplasia (BPH), and generalized anxiety disorder. Recent laboratory assessments indicated mildly low sodium levels likely due to medication, impaired glucose tolerance, and elevated liver enzymes attributed to fatty liver from alcohol intake. The patient reports a current reduction in alcohol consumption, which coincides with previously lower liver enzymes. Review of Systems - Respiratory: Reports persistent cough with changes in sputum color. Denies wheezing. - General: Denies fever but reports breathlessness and lightheadedness during coughing. - Gastrointestinal: Denies diarrhea. Plan Commencement of antibiotics is underway to presumptively address bacterial causes of the cough, with RSV and influenza testing to guide future antibiotic use. Prescription of a cough suppressant has been initiated. The management of liver health includes continued moderation of alcohol consumption and a balanced diet. Laboratory assessments should be repeated to evaluate changes in liver enzymes and glucose levels. Patient was informed and verbally consented to the use of an ambient scribe for clinic note documentation during this visit. Discussion Notes During our appointment, I advised the patient regarding the management of his acute cough with antibiotic therapy, while arranging viral testing to assess for RSV and influenza. Continued cough suppression through medication was planned to alleviate symptoms. We reviewed the implications of his recent blood work, placing emphasis on the importance of continued lifestyle adjustments, particularly regarding alcohol reduction, to address elevated liver enzymes attributed to fatty liver. The necessity for regular dietary regulation concerning carbohydrates was discussed in the context of impaired glucose tolerance. I instructed the patient to undertake follow-up blood testing and assess trends in liver enzyme levels. The patient understood and was agreeable to this management plan. Patient Instructions - Start the antibiotic as prescribed; await guidance if viral test results warrant discontinuation. - Take cough suppressant as directed to manage symptoms. - Continue reducing alcohol consumption to improve liver health. - Follow a diet low in carbohydrates to manage glucose levels. - Conduct follow-up blood work as soon as possible; results will guide further management. - Report any worsening of symptoms or persistent issues to our office. Orders: Orders SARS-CoV2/FLU/RSV Today J20.9 - Acute bronchitis, unspecified Medications: New benzonatate 200 mg PO BID-TID PRN 14 caps 0RF cough J20.9 - Acute bronchitis, unspecified azithromycin (Zithromax) For 250 mg dose pack: take 500 mg today (day 1), then 250 mg for 4 days (days 2-5) PO 6 tabs 0RF J20.9 - Acute bronchitis, u nspecified
== END 2024-10-05 10:57 | disposition home or self-care (01) ==
LOC: HO.HMCH 08:40
PROVIDERS: PCP Internal Medicine; Visit Provider Internal Medicine
DX: J20.9 Acute bronchitis, unspecified (principal); R73.01 Impaired fasting glucose; K76.0 Fatty (change of) liver, not elsewhere classified

== ENCOUNTER 2024-10-05 08:40 | Outpatient (REF) | payer OTHER, SELFPAY ==
[2024-10-05 10:30] LABS: Influenza A PCR NEGATIVE (Negative); Influenza B PCR NEGATIVE (Negative); Resp Syncy Virus RNA Qual PCR NEGATIVE (Negative); SARS COV2 PCR INHOUSE NEGATIVE (Negative)
== END 2024-10-05 08:41 | disposition home or self-care (01) ==
LOC: HO.LAB 08:40
PROVIDERS: PCP Internal Medicine; Visit Provider Internal Medicine
DX: J20.9 Acute bronchitis, unspecified (principal)
CPT/HCPCS: 0241U

== ENCOUNTER → 2024-10-09 16:03 | Outpatient (BNVA) | payer OTHER, SELFPAY | PROVIDERS: PCP Internal Medicine; Visit Provider Internal Medicine | DX: J45.909 Unspecified asthma, uncomplicated (principal); R05.3 Chronic cough; I10 Essential (primary) hypertension; E78.5 Hyperlipidemia, unspecified; F41.1 Generalized anxiety disorder | CPT/HCPCS: 96127 ==

== ENCOUNTER 2024-10-09 16:51 | Outpatient (AMB) | payer OTHER, SELFPAY ==
--- OUTSIDE RECORDS SUMMARY | 2024-10-09 16:16 | XMS_ITS | Data Portability ---
[facility] Organization [facility], [facility] Address [address] [place] [address] Care Team Providers Care Sales Consultant Residential Manager Name Role Phone [facility] Primary Care Provider Assessment Encounter Date Assessment Date Assessment LastModified by Organization Details LastModified Time 09/21/2024 09/21/2024 Chief complaint: Right hip pain. History of present illness: The patient is presenting with a chief complaint of right hip pain. The patient has tried rest, NSAIDS, exercise, and activity modification but continues to have pain. Physical examination: The patient is in no acute distress. He is alert and oriented x3. He has nonlabored breathing. His hearing is intact to spoken word. His extra-ocular motion is intact. Right lower extremity - Skin is intact without ecchymosis, induration, or fluctuance. There is no appreciable swelling. Hip range of motion is 0-90 degrees. The patient has 5 degrees of internal rotation and 20 degrees of external rotation. There is no significant tenderness to palpation over the greater trochanter. The patient has full, painless, range of motion of the knee. There is no knee effusion. Sensation is intact to light touch over the dorsum of the foot, in the first webspace, and over the plantar aspect of the foot. The patient has 5/5 strength with plantarflexion of the ankle, dorsiflexion of the ankle, plantarflexion of the great toe, and dorsiflexion of the great toe. The foot is warm and well-perfused with brisk capillary refill. There is a 2+ dorsalis pedis pulse. Radiographs: 2 views of the right hip including low AP pelvis and right leg frog leg lateral radiographs were obtained and evaluated in the office today. X-rays demonstrate some lucency in the right femoral head consistent with possible avascular necrosis without collapse at this point. He has a previous MRI that captures his right hip which demonstrates possible avascular necrosis in the right femoral head. Assessment and Plan: The patient is presenting with a chief complaint of right hip pain. 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 currently, his pain is moderate. He is scheduled to undergo other surgical procedures and is interested in pursuing these first. Should his hip pain return, we would consider proceeding forward with a right total hip arthroplasty as he has demonstrated evidence of avascular necrosis on a previous MRI and pain that he localizes to his right groin with flexion and internal rotation. Currently, we will continue with observation. He will contact the office if he is interested in proceeding forward with surgery. We discussed the risks and benefits as well as alternatives to elective total hip arthroplasty. The patient indicated that he understood these well given he has previously undergone a left total hip arthroplasty. [email or web address] Not available 09/27/2024 17:01:13 Plan of Treatment Reminders Order Date Submit Date Provider Last Modified By Organization Details Last Modified Time Details Appointments None recorded. Lab None recorded. Referral occupationa l therapist referral - Diagnosis: contusion left wrist, s/p lt wrist osteotomy kienbock diseaseCust om molded orthosis: noneTreatme nt: ROM, strengtheni ng wrist/digit s 2024 025 [place], [address], [place], [address], 5 10:18:33 Procedures None recorded. Surgeries None recorded. Imaging electromyog lizbet + nerve conduction study - Diagnosis: RUE EVALUATE BRACHIAL PLEXUS CARPAL AND CUBITAL TUNNELS AND CERVICAL RADICULOPAT HY, please add to cancellatio n list 2024 025 armand [facility], [address] [place] [address], [address], 5 11:16:19 XR, hip + pelvis, bilateral, 2 view - 205 lthr /right hip pain 2024 025 [facility], [address], [address], [place], [address], 5 10:24:04 XR, wrist, 3 or more view - 2V LT WRIST, BI DIE MAINTENANCE, F/U, RM 117 2024 025 [email or web address] [facility], [address] [facility] [address], [address], [place], [address], 5 13:20:06 Medication Orders None recorded. Patient TargetsNo targets recorded. Patient InstructionsNo instructions recorded. Reason for Referral Occupational Therapist Refer ral for Contusion of left wrist Diagnosis: contusion left wrist, s/p lt wrist osteotomy kienbock diseaseCustom molded orthosis: noneTreatment: ROM, strengthening wrist/digits Referring Physician: Lane Sandra, Orthopedic Surgery, Encounter Date: 07/01/2024 Results Created Date Observation Date Name Description Value Unit Range Abnormal Flag Note LastModifiedBy Organization Detail LastModifiedTime 07/01/19 25 07/01/2024 XR, wrist , 3 or more view [email or web address] ?Encry pted=s hAaTro YD8dLq bEUv6g %2BXZw aYqtaq 0bqfl% 2Fg9IQ a4ajBk vP9nXo QUaueC m3YtLR FvZlgJ JJ8mAn HZtai3 8m6374 AC0Kqb 3mDWaC jKiQtr MwF INTERFACE [facility] [address], [place], [address], 07/01/2024 11:59:46 07/01/19 25 07/01/2024 XR, wrist , 3 or more view [email or web address] ?Encry pted=s hAaTro YD8dLq bEUv6g %2BXZw aYqtaq 0bqfl% 2Fg9IQ a4ajBk vP9nXo QUaueC m3YtLR FvZlgJ JJ8mAn HZtai3 2d9175 AC0Kqb 3mDWaC jKiQtr MwF INTERFACE [facility] [address] [facility] [address], [place], [address], 07/01/2024 11:59:47 09/22/19 25 09/21/2024 XR, hip + pelvi s, bilat eral, 2 view [email or web address]:/ [email or web address] ?Encry pted=s hAaTro YD8dLq bEUv6g %2BXZw aYqtaq 0bqfl% 2Fg9IQ a4ajBk vP9nXo QUaueC m3YtLR FvZlgJ JJ8mAn HZtai3 6y5451 AC0KqY 3%2BCV KajKiQ trMwF INTERFACE [facility] [address] [facility] [address], [place], [address], 09/21/2024 08:23:53 09/22/19 25 09/21/2024 XR, hip + pelvi s, bilat eral, 2 view [email or web address]:/ [email or web address] ?Encry pted=s hAaTro YD8dLq bEUv6g %2BXZw aYqtaq 0bqfl% 2Fg9IQ a4ajBk vP9nXo QUaueC m3YtLR FvZlgJ JJ8mAn HZtai3 8a9771 AC0KqY 3%2BCV KajKiQ trMwF INTERFACE [facility] [address] [facility] [address], [place], [address], 09/21/2024 08:23:55 Result Notes None recorded. Problems Name Problem SNOMED Code Status Onset Date Resolution Date Notes Provider Name and Address Organization Details Recorded Time Pain of left shoulder joint 814193707067676 09 Active 2023 GEOVANI mendez [place] - [facility] 10:28:08 Pain of right knee joint 908735636269836 Active 2023 MARIYLTODD L'HEUREUX null, [facility] 4 10:37:32 Problem Notes None recorded. Procedures Surgical History Date Name Laterality Status Provider Name and Address Organization Details Recorded Time 4 45688 Therapeutic Exercise (1:1) completed Irvin Santos PT [address], [place], [address], [facility] 10/30/2023 19:50:37 4 02931 Therapeutic Exercise (1:1) completed Kaity Jones PTA [address], [place], [address], [facility] 10/16/2023 17:41:05 4 Knee Kenalog 40 2cc Injection, Bilateral completed Reynaldo Becerril PA-C [address], [place], [address], [facility] 10/16/2023 14:27:20 4 08244 Therapeutic Exercise (1:1) completed Kaity Jones PTA [address], [place], [address], [facility] 10/15/2023 12:09:00 4 17822 Therapeutic Exercise (1:1) completed Irvin Santos PT [address], [place], [address], [facility] 10/11/2023 06:58:02 4 34240 Therapeutic Exercise (1:1) completed Irvin Santos PT [address], [place], [address], [facility] 10/09/2023 09:06:22 4 19804 Therapeutic Exercise (1:1) completed Nora Lawson DPT [address], [place], [address], [facility] 10/03/2023 17:47:58 4 58060: Manual therapy completed Nora Lawson DPT [address], [place], [address], [facility] 10/03/2023 17:47:56 4 13745 Therapeutic Exercise (1:1) completed Irvin Santos, PT [address], [place], [address], [facility] 09/30/2023 14:11:24 4 47406 Therapeutic Exercise (1:1) completed Irvin Santos, PT [address], [place], [address], [facility] 09/26/2023 12:40:27 4 66297 Therapeutic Exercise (1:1) completed Irvin Santos, PT [address], [place], [address], [facility] 09/24/2023 19:07:32 4 38436 Therapeutic Exercise (1:1) cancelled Irvin Santos, PT [address], [place], [address], [facility] 09/20/2023 06:55:47 4 16481 Therapeutic Exercise (1:1) completed Irvin Santos, PT [address], [place], [address], [facility] 09/17/2023 10:46:01 4 02933 Therapeutic Exercise (1:1) cancelled Irvin Santos, PT [address], [place], [address], [facility] 09/12/2023 16:24:42 4 55253 Therapeutic Exercise (1:1) cancelled Irvin Santos, PT [address], [place], [address], [facility] 09/10/2023 16:32:10 4 80821 Therapeutic Exercise (1:1) cancelled Irvin Santos, PT [address], [place], [address], [facility] 09/04/2023 16:34:16 4 04646 Therapeutic Exercise (1:1) completed Nora Lawson DPT [address], [place], [address], [facility] 09/03/2023 13:30:40 4 87740: Therapeutic Activities (1:1) cancelled Irvin Santos, PT [address], [place], [address], [facility] 09/02/2023 12:00:00 4 92607 Therapeutic Exercise (1:1) cancelled Irvin Santos, PT [address], [place], [address], [facility] 09/02/2023 12:00:00 4 36261: Gait training cancelled Irvin Santos, PT [address], [place], [address], [facility] 09/02/2023 12:00:00 4 15049: Therapeutic Activities (1:1) completed Irvin Santos, PT [address], [place], [address], [facility] 08/29/2023 14:53:39 4 58779 Therapeutic Exercise (1:1) completed Irvin Santos PT [address], [place], [address], [facility] 08/29/2023 14:53:39 4 12207: Gait training completed Irvin Santos, PT [address], [place], [address], [facility] 08/29/2023 14:53:39 4 71053: Therapeutic Activities (1:1) completed Irvin Santos, PT [address], [place], [address], [facility] 08/26/2023 16:26:53 4 85385 Therapeutic Exercise (1:1) completed Irvin Santos, PT [address], [place], [address], [facility] 08/26/2023 16:26:39 4 96266: Gait training completed Irvin Santos, PT [address], [place], [address], [facility] 08/26/2023 16:26:23 Imaging Results Imaging Date Name Status LastModified by Organiz ation Details LastModified Time 07/01/2024 XR, wrist, 3 or more view completed INTERFACE [facility] [address], [place], [address], 07/01/2024 11:59:46 07/01/2024 XR, wrist, 3 or more view completed INTERFACE [facility] [address], [place], [address], 07/01/2024 11:59:47 09/21/2024 XR, hip + pelvis, bilateral, 2 view completed [facility]FACE [facility] [address], [place], [address], 09/21/2024 08:23:53 09/21/2024 XR, hip + pelvis, bilateral, 2 view completed [facility]FACE [facility] [address], [place], [address], 09/21/2024 08:23:55 Procedure Notes None recorded. Medical Equipment None Reported. Allergies Allergen ID Allergen Name Allergen Category Reaction Reaction Severity Criticality Documentation Date Start Date Code Code System Note Provider Name and Address Organization Details Recorded Time 352510 nitroglyc charity medicatio n confusion severe high 09/03/2023 4917 RxNorm [facility] 4 11:22:28 157390 Avelox medicatio n confusion severe high 09/03/2023 80874 6 RxNorm CAMERON mendez [facility] 10:23:32 Medications Name Sig Start Date Stop Date Status Note LastModified by Organization Details LastModified Time celecoxib 200 mg capsule TAKE 1 CAPSULE BY MOUTH ONCE A DAY. MEDICATIO N TO BE STARTED 3 DAYS BEFORE SURGERY. 09/21 completed Not Available Not Available Not Available amoxicillin 500 mg capsule TAKE 4 CAPSULES BY MOUTH 1 HOUR PRIOR TO PROCEDURE 09/21 completed Not Available Not Available Not Available terazosin 5 mg capsule TAKE 1 CAPSULE BY MOUTH DAILY AT BEDTIME FOR 2 WEEKS 11/20 completed Not Available Not Available Not Available gabapentin 600 mg tablet TAKE 1 TABLET BY MOUTH TWICE A DAY FOR ANXIETY. START DATE 08/22/23. 09/21 completed Not Available Not Available Not Available doxycycline hyclate 100 mg capsule TAKE 1 CAPSULE BY MOUTH TWICE A DAY 05/29 completed Not Available Not Available Not Available paroxetine 10 mg tablet TAKE 1 TABLET BY MOUTH EVERY MORNING 11/20 completed Not Available Not Available Not Available atorvastati n 10 mg tablet TAKE 1 TABLET BY MOUTH DAILY AT BEDTIME active Not Available Not Available No t Available alprazolam 1 mg tablet TAKE 2 TABLETS (2MG) ONCE DAILY NEEDED PRIOR TO MRI 11/20 completed Not Available Not Available Not Available tizanidine 4 mg tablet TAKE 1 TABLET BY MOUTH THREE TIMES A DAY 09/21 completed Not Available Not Available Not Available methylpheni date 10 mg tablet active Not Available Not Available Not Available methylpheni date 20 mg tablet TAKE 1 TABLET BY MOUTH THREE TIMES A DAY NEEDED FOR ADHD active Not Available Not Available No t Available meloxicam 15 mg tablet TAKE 1 TABLET BY MOUTH DAILY active Not Available Not Available No t Available tramadol 50 mg tablet TAKE 1 TO 2 TABLETS BY MOUTH EVERY 6 HOURS NEEDED FOR MILD PAIN. DO NOT EXCEED 8 TABLETS (400MG) PER DAY. 11/20 completed Not Available Not Available Not Available sildenafil 100 mg tablet TAKE 1 TABLET BY MOUTH DAILY NEEDED FOR SEXUAL ACTIVITY. ADMINISTE R 60 MINUTES BEFORE INTENDED ACTIVITY. NO MORE THAN 1 TABLET IN 24 HOUR active Not Available Not Available No t Available pramipexole 0.5 mg tablet TAKE 1 TABLET BY MOUTH EVERY DAY AT BEDTIME FOR DEPRESSIO N STARTDATE : 5 active Not Available Not Available No t Available oxycodone-a cetaminophe n 5 mg-325 mg tablet TAKE 1 TABLET EVERY 4 HOURS NEEDED PAIN DO NOT DRIVE WHILE TAKING THIS MEDICATIO N 11/20 completed Not Available Not Available Not Available BD Regular Bevel Holcomb 18 gauge x 1 USE DIRECTED TO DRAW TESTOSTER ONE active Not Available Not Available No t Available calcium 600 mg (as calcium carbonate 1,500 mg) tablet TAKE 1 TABLET BY MOUTH TWICE A DAY active Not Available Not Available No t Available gentamicin 0.3 % eye drops INSTILL 1 DROP IN AFFECTED EYE EVERY 8 HOURS FOR 5 DAYS 11/20 completed Not Available Not Available Not Available gabapentin 800 mg tablet TAKE 1 TABLET BY MOUTH 3 TIMES A DAY FOR ANXIETY / PAIN active Not Available Not Available No t Available diazepam 2 mg tablet TAKE 1 TABLET BY MOUTH TWICE A DAY FOR 7 DAYS 09/21 completed Not Available Not Available Not Available baclofen 10 mg tablet TAKE 1 TABLET BY MOUTH TWICE A DAY FOR 15 DAYS 11/20 completed Not Available Not Available Not Available amlodipine 10 mg tablet TAKE 1 TABLET BY MOUTH EVERY DAY active Not Available Not Available No t Available hydrocortis one 1 % topical cream APPLY TO AFFECTED AREA 1-2 TIMES PER DAY 09/21 completed Not Available Not Available Not Available cephalexin 500 mg capsule TAKE 1 CAPSULE BY MOUTH THREE TIMES A DAY FOR 10 DAYS active Not Available Not Available No t Available paroxetine 20 mg tablet TAKE 1 TABLET BY MOUTH TWICE PER DAY FOR MOOD / ANXIETY active Not Available Not Available No t Available pantoprazol e 40 mg tablet,valerie yed release TAKE 1 TABLET BY MOUTH ONCE A DAY. START MORNING OF SURGERY 11/20 completed Not Available Not Available Not Available mirtazapine 30 mg tablet TAKE 1 TABLET BY MOUTH AT BEDTIME FOR DEPRESSIO N, SLEEP AND ANXIETY active Not Available Not Available No t Available pseudoephed rine-guaife nesin ER 80-700 mg tablet,exte nded release as directed 1 PO Q [address]N PAINDO NOT DRIVE WHILE TAKING THIS MEDICATIO N 05/01 completed Statu s: 'Disc ontin ued'; Not Available Not Available Not Available clotrimazol e-betametha sone 1 %-0.05 % topical cream APPLY TO AFFECTED AREA TWICE A DAY FOR 14 DAYS active Not Available Not Available No t Available dextroamphe tamine-amph etamine 20 mg tablet TAKE 1 TABLET BY MOUTH THREE TIMES A DAY FOR ADHD STARTDATE : active Not Available Not Available No t Available docusate sodium 100 mg capsule TAKE 1 CAPSULE BY MOUTH TWICE A DAY DIRECTED . MEDICATIO N TO BE STARTED AFTER SURGERY 11/20 completed Not Available Not Available Not Available omeprazole 20 mg capsule,del ayed release TAKE 1 CAPSULE BY MOUTH EVERY DAY active Not Available Not Available No t Available folic acid 1 mg tablet TAKE 1 TABLET BY MOUTH EVERY DAY active Not Available Not Available No t Available morphine ER 15 mg tablet,exte nded release TAKE 1 TABLET BY MOUTH EVERY 12 HOURS NEEDED PAIN DO NOT DRIVE WHILE TAKING THIS MEDICATIO N 11/20 completed Not Available Not Available Not Available hydrochloro thiazide 25 mg tablet TAKE 1 TABLET BY MOUTH ONCE DAILY 09/21 completed Not Available Not Available Not Available testosteron e cypionate 200 mg/mL intramuscul ar oil INJECT 0.4 ML (80MG) SUBCUTANE OUSLY EVERY WEEK (DISPOSE OF VIAL AFTER USE) active Not Available Not Available No t Available paroxetine 40 mg tablet TAKE 1 TABLET BY MOUTH EVERY DAY FOR MOOD / ANXIETY active Not Available Not Available No t Available lisinopril 40 mg tablet TAKE 1 TABLET BY MOUTH EVERY DAY active Not Available Not Available No t Available fluticasone propionate 50 mcg/actuati on nasal spray,suspe nsion SPRAY 2 SPRAYS INTO EACH NOSTRIL DAILY active Not Available Not Available No t Available betamethaso ne dipropionat e 0.05 % lotion active Not Available Not Available Not Available doxycycline hyclate 100 mg tablet TAKE 1 TABLET (ORAL) 2 TIMES PER DAY FOR 4 DAYS LIMITS SUN EXPOSURE WHILE ON THIS ANTIBIOTI C 05/29 completed Not Available Not Available Not Available lamotrigine 100 mg tablet TAKE 1 TABLET BY MOUTH EVERY DAY active Not Available Not Available No t Available fluticasone propionate 110 mcg/actuati on HFA aerosol inhaler active Not Available Not Available Not Available tobramycin 0.3 %-dexametha sone 0.1 % eye drops,suspe nsion INSTILL 1 DROP INTO BOTH EYES 4 TIMES A DAY 11/20 completed Not Available Not Available Not Available oxycodone 5 mg tablet TAKE 1 TABLET BY MOUTH EVERY 12 HOURS FOR 7 DAYS 11/20 completed Not Available Not Available Not Available Laxative (bisacodyl) 5 mg tablet,valerie yed release TAKE 2 TABLET BY MOUTH ONCE AT NOON THE DAY BEFORE COLONOSCO PY 11/20 completed Not Available Not Available Not Available atomoxetine 40 mg capsule TAKE 1 CAPSULE BY MOUTH EVERY DAY active Not Available Not Available No t Available bupropion HCl XL 300 mg 24 hr tablet, extended release TAKE 1 TABLET BY MOUTH EVERY MORNING active Not Available Not Available No t Available tadalafil 5 mg tablet TAKE ONE TABLET BY MOUTH EVERY DAY active Not Available Not Available No t Available calcium 315 mg (as citrate)-vi tamin D3 5 mcg (200 unit) tablet TAKE 2 TABLETS BY MOUTH TWICE A DAY active Not Available Not Available No t Available BD SafetyGlide Needle 25 gauge x 5/8 DIRECTED - FOR TESTOSTER ONE SUBCUTANE OUS INJECTION 11/20 completed Not Available Not Available Not Available BD SafetyGlide Needle 25 gauge x 1 FOR TESTOSTER ONE INJECTION active Not Available Not Available No t Available tadalafil Tadalafil 5MG Tablet 2023 active Statu s: 'Curr ent'; Not Available Not Available Not Available BD SafetyGlide Needle 18 gauge x 1 1/2 USE DIRECTED TO DRAW TESTOSTER ONE 11/20 completed Not Available Not Available Not Available BD Luer-Sorin Syringe 1 mL TESTOSTER ONE INJECTION WEEKLY active Not Available Not Available No t Available oxycodone 10 mg tablet TAKE 1/2 TO 1 TABLET EVERY 6 [address]RS FOR PAIN DO NOT DRIVE WHILE TAKING THIS MEDICATIO N 11/20 completed Not Available Not Available Not Available cholecalcif benji (vitamin D3) 50 mcg (2,000 unit) capsule TAKE 1 CAPSULE BY MOUTH EVERY DAY active Not Available Not Available No t Available oxycodone HCl-oxycodo ne-ASA take 1 tab every 6 hours for severe pain .DO NOT DRIVE WHILE TAKING THIS MEDICATIO N 05/29 completed Statu s: 'Curr ent'; Not Available Not Available Not Available Gavilax 17 gram/dose oral powder 238 G ORALLY ONCE FOR 1 DAY TAKE DIRECTED BY MOUTH THE DAY BEFORE YOUR PROCEDURE . 11/20 completed Not Available Not Available Not Available Combivent Respimat 20 mcg-100 mcg/actuati on solution for inhalation INHALE 1 PUFF BY MOUTH EVERY 6 HOURS active Not Available Not Available No t Available Eliquis 2.5 mg tablet TAKE 1 TABLET BY MOUTH TWO TIMES A DAY 05/29 completed Not Available Not Available Not Available naloxone 4 mg/actuatio n nasal spray GENTLY INSERT THE TIP INTO ONE NOSTRIL AND PRESS THE PLUNGER FIRMLY; IF NO RESPONSE MAY REPEAT EVERY 2 TO 3 MINUTES IN ALTERNATE NOSTRIL. CALL 911 active Not Available Not Available No t Available Tymlos 80 mcg/dose (3,120 mcg/1.56 mL) subcutaneou s pen injector active Not Available Not Available Not Available Paxlovid 300 mg (150 mg x 2)-100 mg tablets in a dose pack TAKE 3 TABLETS BY MOUTH TWICE A DAY FOR 5 DAYS DIRECTED 11/20 completed Not Available Not Available Not Available Vitals Date Recorded Body height Body mass index (BMI) Body weight Provider Name and Address Organization Details Last Updated DateTime 05/29/2024 175.26 cm 27.3 kg/m2 49950.59 g Corina House [facility] 05/29/2024 11:22:20 Date Recorded Body height Body mass index (BMI) Body weight Provider Name and Address Organization Details Last Updated DateTime 07/01/2024 175.26 cm 27.3 kg/m2 57221.59 g BJORN FOX [facility] 07/01/2024 11:41:50 Date Recorded Body height Body mass index (BMI) Body weight Provider Name and Address Organization Details Last Updated DateTime 08/27/2024 175.26 cm 27.3 kg/m2 77271.59 g BJORN FOX [facility] 08/27/2024 11:01:37 Date Recorded Body height Body mass index (BMI) Body weight Provider Name and Address Organization Details Last Updated DateTime 09/21/2024 175.26 cm 28.6 kg/m2 63559.12 g CAMERNO OLGUIN [facility] 09/21/2024 08:10:14 Date Recorded Body height Body mass index (BMI) Body weight Provider Name and Address Organization Details Last Updated DateTime 09/24/2024 175.26 cm 28.6 kg/m2 92409.12 g BJORN FOX [facility] 09/24/2024 10:43:26 Social History Question Answer Notes LastModified by Organizat ion Details LastModified Time Tobacco Smoking Status Never Smoker GRAHAM mendez [place] - [facility] [facility]23 10:36:24 What Is Your Level Of Alcohol Consumption? Moderate Information not available 11/21/2023 How Many Times Per Week Do You Consume Alcohol? 5-7 Times Per Week Information not available 11/21/2023 Have You Ever Been Counseled For Unhealthy Alcohol Use? No Information not available 11/21/2023 What Is Your Relationship Status? Single Information not available 11/21/2023 Do You Use Any Illicit Or Recreational Drugs? No Information not available 11/21/2023 Do You Or Have You Ever Used Any Other Forms Of Tobacco Or Nicotine? No Information not available 11/21/2023 Sex: Unknown Functional Status None recorded. Mental Status None recorded. Family History Nothing Reported. Medical History Condition Response Coronary Artery Disease N Anxiety/Depression Y Emphysema N COPD N Pacemaker N Vascular Disease N Heart Trouble N Gastrointestinal Disease N Autoimmune disease N Orthotics N Arthritis Y Blood Clot N Acid Reflux (GERD) N Cancer N Stroke N Circulation Problems N Rheumatoid Arthritis N Arrhythmia N Headaches N Fibromyalgia N Allergies/Hayfever N Breathing or lung disorders N Nerve Disorders N Thyroid Problems N Kidney/Bladder Problems N Anemia N Heart Attack ([place]) N Cholesterol Y Diabetes N Bleeding Disorder N Seizures/Epilepsy N AIDS/HIV N Congestive Heart Failure (CHF) N Asthma N Peripheral Vascular Disease N Sleep Apnea N Hepatitis N Heart Disease N Pulmonary Embolism N Hypertension Y Osteoporosis N Past Encounters Encounter ID Performer Location Encounter Start Date Encounter Closed Date Diagnosis/Indication Diagnosis SNOMED-CT Code Diagnosis ICD10 Code Diagnosis Note [id number] [facility] [address] [place] [address] 08/27/2023 10:31:19 08/27/2023 16:07:57 Aftercare 608775192 Z47.1 History of total replacement of left hip joint [id number] 165087 Z96.107 [id number] [facility] [address] [place] [address] 08/30/2023 10:58:08 08/30/2023 16:11:28 Aftercare 506486102 Z47.1 History of total replacement of left hip joint [id number] 480132 Z96.595 [id number] Nora Lawson, DPT [facility] [address] [place] [address] 09/03/2023 10:48:17 09/03/2023 12:22:56 Aftercare 269981381 Z47.1 History of total replacement of left hip joint [id number] 957582 Z96.341 [id number] MD Marielos Ortegae [address] [place] [address] 09/03/2023 10:08:05 09/19/2023 08:47:24 History of total replacement of left hip joint [id number] 429180 Z96.726 [id number] Irvin Santos, PT [facility] [address] [place] [address] 09/17/2023 09:58:24 09/17/2023 10:46:59 Aftercare 867597565 Z47.1 History of total replacement of left hip joint 7066189780 212325 Z96.229 [id number] Irvin Santos, PT [facility] [address] [place] [address] 09/25/2023 10:07:55 09/25/2023 10:55:07 Aftercare 925283515 Z47.1 History of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
--- NOTE | 2024-10-09 16:52 | MHC.PC.OV ---
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: No Accompanied by: Self / Same As Patient Allergies moxifloxacin [From AVELOX] Allergy (Severe, Verified 10/09/24 16:52) SEVERE MOUTH/GENITAL SORES, swelling nitrofurantoin [NITROFURANTOIN] Allergy (Intermediate, Verified 10/09/24 16:52) BLOATING, bloated amlodipine Adverse Reaction (Intermediate, Verified 10/09/24 16:52) leg swelling SEASONAL ALLERGIES Allergy (Mild, Uncoded 10/09/24 16:52) RUNNY NOSE Tobacco use date assessed: 10/09/24 Dental Screening Dental Screen Date: 10/09/24 Did you have a dental visit in the last 12 months?: Yes Did you have a dental problem in the last 6 months where you did not have access to dental care?: No Was dental information given to patient?: Patient has dentist HPI discuss cold symptoms not improving HPI Details cough 1 week, after z austyn - 97.1 , patient is having coughing fit and , no wheezing PFSH Medical History (Updated 10/09/24 @ 17:10 by Lillian Atkinson MD) Vitamin D deficiency Hypogonadism male Numbness of left hand Trigger finger of right hand Rupture of left biceps tendon Right rib fracture Tibial plateau fracture, right Hypogonadism BPH (benign prostatic hyperplasia) Osteoporosis Erectile dysfunction Diverticulitis Cholelithiasis Hypertension Hypercholesterolemia Fatty liver Polysubstance abuse Asthma Gout Surgical History History of carpal tunnel surgery H/O colonoscopy Hx of arthroscopy of left knee Hx of umbilical hernia repair Hx of right knee surgery History of surgery on arm H/O knee surgery Ankle fracture, right Family History Mother Breast cancer Father Skin cancer Hypercholesterolemia Sister Depression Mental health disorder Social History Housing: Apartment Alcohol intake: current Alcohol intake frequency: 0-2 drinks per day Patient Tobacco Use Status: Never used Tobacco Tobacco use type: Cigarette e-Cigarette/Vaping Use: Never Used Second Hand Smoke Exposure: No service: No Current occupational status: disabled Cognitive needs: No Hearing needs: No Vision needs: No Questionnaire PHQ-9 Over the last 2 weeks, how often have you been bothered by any of the following problems? 1. Little interest or pleasure in doing things: not at all 2. Feeling down, depressed, or hopeless: not at all 3. Trouble falling or staying asleep, or sleeping too much: not at all 4. Feeling tired or having little energy: not at all 5. Poor appetite or overeating: not at all 6. Feeling bad about yourself - or that you are a failure or have let yourself or your family down: not at all 7. Trouble concentrating on things, such as reading the newspaper or watching television: not at all 8. Moving or speaking so slowly that other people could have noticed. Or the opposite - being so fidgety or restless that you have been moving around a lot more than usual: not at all 9. Thoughts that you would be better off or of hurting yourself in some way: not at all Total score: 0 Depression Screening Interpretation: Negative Depression Screening Done: Yes 25390 - PHQ-9 Billing: Yes Source: Developed by Drs. Eliud Proctor, Christine Trinh, Reinaldo Henry and colleagues, with an educational yanely from [employer]. Thrive Questionnaire Date Thrive assessed: 10/09/24 I am a: Patient What is your living situation today?: I have a steady place to live Within the past 12 months, did the food you bought not last and you didn't have the money to get more?: Never true Within the past 12 months, did you worry whether your food would run out before you got money to buy more?: Never true Do you have trouble paying for medicines?: No Do you have trouble getting transportation to medical appointments?: No Do you have trouble paying your heating and electricity bill?: No Do you have trouble taking care of your child, family member or friend?: No Do you have trouble with day-to-day activities such as bathing, preparing meals, shopping, managing finances, etc.?: No Are you currently unemployed and looking for a job?: No Are you interested in more education?: No Please select the resources that you would like help with: None Currently or been in a relationship where the following occur: No concerns reported THRIVE Score: 0 AUDIT C Alcohol Use Questionnaire (AUDIT-C) 1. How often do you have a drink containing alcohol?: 4 or more times a week 2. How many drinks containing alcohol do you have on a typical day when you are drinking?: 1 or 2 3. How often do you have six or more drinks on one occasion?: Never Total Score: 4 Score Reviewed/Action Taken: Yes KRISHAN-7 AMB Questionnaire KRISHAN-7 Date KRISHAN - 7 assessed: 10/09/24 Feeling nervous, anxious, or on edge: 0 = Not at all Not being able to stop or control worryin = Not at all Worrying too much about different things: 0 = Not at all Trouble relaxin = Not at all Being so restless that it is hard to sit still: 0 = Not at all Becoming easily annoyed or irritable: 0 = Not at all Feeling afraid as if something awful might happen: 0 = Not at all Total KRISHAN-7 score (0-4 normal; 5-9 mild; 10-14 moderate; 15-21 severe): 0 Source: Developed by Drs. Eliud Proctor, Christine Trinh, Reinaldo Henry and colleagues, with an educational yanely from [employer]. KRISHAN-7 Assessment Billing KRISHAN-7 Assessment Tool: KRISHAN-7 Assessment 22412 Physical exam (Primary Care) Tobacco/Smoking Status: Tobacco use Status Tobacco use date assessed 10/09/24 10/09/24 16:54 Patient Tobacco Use Status Never used Tobacco 10/09/24 16:54 Tobacco use type Cigarette 10/09/24 16:54 e-Cigarette/Vaping Use Never Used 10/09/24 16:54 PHQ-9: PHQ-9 Score PHQ-9: Total score 0 10/09/24 17:10 Depression Screening Interpretation: Negative Thrive Assessment: Date of Thrive Assessment Date Thrive assessed 10/09/24 10/09/24 16:54 Currently or been in a relationship where the following occur: No concerns reported Telehealth Telehealth Telehealth Platform: Telephone Location of provider rendering services: practice address Location of patient: address on file Patient Identification confirmed using: Name, : Yes Telehealth method: voice only Patient verbally consented to treatment: Yes Patient verbally consented to billing insurance company: Yes Patient informed of any privacy concerns related to visit: Yes Minutes spent on Phone/Video with Pt.: 15 Coding Level of Care Code Tele Est Pt Level 3 (45478) Diagnoses Cough R05.9 Additional Codes KRISHAN-7 Assessment Billing - KRISHAN-7 Assessment Tool: KRISHAN-7 Assessment 24671 ([id number]) PHQ-9 - 61778 - PHQ-9 Billing: Yes ([id number]) Assessment & Plan Assessment & Plan (1) Cough: Code(s): R05.9 - Cough, unspecified Category: Medical Plan: Patient is advised to get a schedule next week Plan History of Present Illness The patient is a 64-year-old male presenting with a persistent cough. The cough, described as dry and violent, may be influenced by pollen in the air. Symptom onset was prior to the last telehealth call, and the patient has been using azithromycin (Z-Austyn) alongside cough suppressant drops with reports of limited relief. The patient runs typically warmer, but recorded his temperature at 97.1?F, indicating an absence of fever. No chest tightness or wheezing was reported although post-nasal drip is present. Relevant medical history includes asthma, hypertension, hyperlipidemia, generalized anxiety disorder, sinus problems, and a history of polysubstance and alcohol use disorder, suggesting a complex interplay of chronic conditions. Allergic rhinitis with ongoing management using antihistamines was noted, albeit with inconsistent dosing. Further consultation led to a consideration of switching antibiotics to doxycycline and proceeding with a chest X-ray to assess further complications. Review of Systems - Constitutional: Denies fever; reports minor sweating. - Respiratory: Reports persistent, dry, violent cough; denies chest tightness or wheezing. - Cardiovascular: Denies chest pain. - Gastrointestinal: Denies nausea or vomiting. - Musculoskeletal: Reports rib and side soreness due to coughing fits. - Neurological: Denies headaches or dizziness. - Psychiatric: Not discussed. - Allergy/Immunologic: Reports post-nasal drip; started antihistamines. - ENT: Reports possible sinus issues. Plan Due to the persistent cough and potential exacerbation of sinusitis, the antibiotic has been switched to doxycycline to potentially address resistant pathogens. Continuation and adherence to antihistamine therapy are recommended for relief from allergic rhinitis symptoms. A chest X-ray is advised to eliminate concerns of complications such as pneumonia due to the patient's comorbidities and overall history. An in-person follow-up is scheduled to properly evaluate the treatment response and further address any ongoing symptoms. Patient was informed and verbally consented to the use of an ambient scribe for clinic note documentation during this visit. Discussion Notes I discussed with the patient the probable allergic component underlying his persistent cough and the necessity to transition to doxycycline for broader coverage due to limited relief from azithromycin. I elaborated on the purpose and suggested continuation of antihistamines to mitigate symptoms attributed to allergies and sinus issues. The patient was informed about the importance of completing the full course of antibiotics and the risks of antibiotic resistance. The need for a chest X-ray was further explained as a precaution to ensure no development of pneumonia, and the patient agreed to this plan. We also planned a follow-up visit next week to reassess and consider further interventions based on progress. The patient consented to all proposed management and understood the outlined course. Patient Instructions - Complete the full course of doxycycline as prescribed. - Continue taking antihistamines daily for allergy relief. - Get a chest X-ray at the designated facility between 7:00 to 11:00 AM. - Monitor symptoms and seek immediate care if symptoms worsen, such as experiencing fever, significant breathing difficulty, or pain. - Schedule a follow-up appointment next week. - Stay hydrated and rest as needed. - Avoid exposure to known allergens if possible. Orders: Orders XR chest 2V Today R05.9 - Cough, unspecified Medications: New doxycycline hyclate 100 mg PO BID 14 caps 0RF R05.9 - Cough, unspecified
== END 2024-10-09 17:22 | disposition home or self-care (01) ==
PROVIDERS: PCP Internal Medicine; Visit Provider Internal Medicine
DX: R05.9 Cough, unspecified (principal)

== ENCOUNTER 2024-10-10 10:34 | Outpatient (REF) | payer OTHER, SELFPAY | END 2024-10-10 10:35 | disposition home or self-care (01) | LOC: HO.XRAY 10:34 | PROVIDERS: PCP Internal Medicine; Visit Provider Internal Medicine | DX: R05.9 Cough, unspecified (principal) | CPT/HCPCS: 71046 ==

== ENCOUNTER → 2024-10-10 10:40 | Outpatient (BNV) | payer OTHER, SELFPAY | PROVIDERS: PCP Internal Medicine; Visit Provider Radiology Diagnostic Radiology | DX: J84.9 Interstitial pulmonary disease, unspecified (principal) | CPT/HCPCS: 71046 ==

== ENCOUNTER 2024-11-28 10:42 | Outpatient (REF) | payer OTHER, SELFPAY ==
[2024-11-28 11:19] LABS: Basophils Absolute Auto 0.1 X10*3/uL (0.0-0.2); Basophils Percent Auto 1.6 % (0-2); Eosinophils Absolute Auto 0.2 X10*3/uL (0.0-0.4); Eosinophils Percent Auto 3.3 % (0-4); Hematocrit 49.7 % (42.0-52.0); Hemoglobin 17.5 g/dl (14.0-18.0); Imm Gran Abs Auto 0.01 X10*3/uL (0.00-0.03); Imm Gran Pct Auto 0.2 % (0.0-0.4); Lymphocytes Percent Auto 34.3 % (20-40); MANUAL DIFF FLAG SCAN; Mean Corpuscular HGB Conc 35.2 g/dl (31.0-36.0); Mean Corpuscular Hemoglobin 31.9 pg (27.0-33.0); Mean Corpuscular Volume 90.5 fL (80.0-98.0); Mean Platelet Volume 8.7 fL (9.4-12.4); Monocytes Absolute Auto 1.4 X10*3/uL (0.1-1.2); Monocytes Percent Auto 24.1 % (2-11); Neutrophils Absolute Auto 2.1 x10*3/uL (2.0-8.3); Neutrophils Percent Auto 36.5 % (45-73); Platelet Count 256 X10*3/uL (160-400); Red Blood Count 5.49 X10*6/uL (4.60-5.80); Red Cell Distribution Width 12.7 % (11.0-16.0); SCAN SMEAR FLAG 1; White Blood Count 5.7 X10*3/uL (4.8-10.8)
[2024-11-28 11:48] LABS: SLIDE REVIEW VERIFIED
[2024-11-28 11:57] LABS: Estimated Average Glucose 117 mg/dL; Hemoglobin A1c % 5.7 % (<6.0)
[2024-11-28 12:10] LABS: Alanine Aminotransferase 64 U/L (0-40); Albumin Level 4.6 g/dL (3.5-5.0); Alkaline Phosphatase 59 U/L (39-117); Anion Gap 11 (12-20); Aspartate Amino Transferase 55 U/L (5-37); Bilirubin Total 0.6 mg/dL (0.0-1.0); Blood Urea Nitrogen 13 mg/dL (9-16); Carbon Dioxide 30 mmol/L (22-29); Chloride 94 mmol/L (96-108); Cholesterol 167 mg/dL (<200); Estimated Glomerular Filt Rate > 60; Glucose Random 117 mg/dL (60-115); HDL Cholesterol 54 mg/dL (>40); LDL Cholesterol Calculated 105 mg/dL (<100); Potassium 4.1 mmol/L (3.3-5.1); Sodium 131 mmol/L (135-145); Total Protein 7.5 g/dL (6.5-8.0); Triglycerides 44 mg/dL (<150); Uric Acid 7.5 mg/dL (3.4-7.0)
[2024-11-28 12:14] LABS: Free T4 (Free Thyroxine) 0.95 ng/dL (0.71-1.85); Thyroid Stimulating Hormone 0.73 uIU/mL (0.32-4.0)
[2024-11-28 13:00] LABS: Folate > 20.0 ng/mL (> or = 4.0); Vitamin B12 473 pg/mL (200-900)
[2024-12-04 15:14] LABS: Testosterone, Total 1155 ng/dL (250-1100)
== END 2024-11-28 10:43 | disposition home or self-care (01) ==
LOC: HO.LAB 10:42
PROVIDERS: PCP Internal Medicine; Visit Provider Internal Medicine
DX: R73.01 Impaired fasting glucose (principal); E78.00 Pure hypercholesterolemia, unspecified
CPT/HCPCS: 36415; 80053; 80061; 82607; 82746; 83036; 84403; 84439; 84443; 84550; 85025

== ENCOUNTER → 2024-12-04 09:45 | Outpatient (BNVA) | payer OTHER, SELFPAY | PROVIDERS: PCP Internal Medicine; Visit Provider Internal Medicine ==

== ENCOUNTER 2024-12-08 13:08 | Outpatient (AMB) | payer OTHER, SELFPAY ==
--- NOTE | 2024-12-08 13:12 | A.OFFPC_ITS ---
Vital Signs 12/08/24 13:13 Height 5 ft 9.16 in Weight 191 lb 8 oz BMI 28.1 BP 150/90 H Blood Pressure Location Lt brachial Position Sitting Pulse 94 Pulse Source Pulse Oximeter Temp 97.3 F Temp Source Temporal Artery Scan Pulse Oximetry (%) 95 Oxygen Delivery Method Room Air Intake Visit Reasons: HTN, leg swelling Intake Note: Patient is here to follow up on HTN, Swelling of both legs. 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 Examination Proctor: Not Required per policy Accompanied by: Self / Same As Patient Allergies moxifloxacin (From AVELOX) Allergy (Severe, Verified 12/08/24 13:13) SEVERE MOUTH/GENITAL SORES, swelling nitrofurantoin (NITROFURANTOIN) Allergy (Intermediate, Verified 12/08/24 13:13) BLOATING, bloated amlodipine Adverse Reaction (Intermediate, Verified 12/08/24 13:13) leg swelling SEASONAL ALLERGIES Allergy (Mild, Uncoded 12/08/24 13:13) RUNNY NOSE Medication List - Last Reconciled 12/08/24 by Zuri Lopez PA-C abaloparatide (Tymlos) 80 mcg (0.04 mL) subcut DAILY 90 days atorvastatin 10 mg PO BEDTIME benzonatate 200 mg PO BID-TID PRN calcium citrate-vitamin D3 315 mg-5 mcg (200 unit) 2 tabs PO BID 90 days clotrimazole-betamethasone 1-0.05 % 1 appl topical BID dextroamphetamine-amphetamine 20 mg 1 tab PO BID fluticasone propionate 50 mcg/actuation (Allergy Relief (fluticasone)) 2 sprays intranasal DAILY fluticasone propionate 110 mcg/actuation 2 puffs inhalation BID folic acid 1 mg PO DAILY gabapentin 600 mg PO BID gabapentin mg PO hydrochlorothiazide 25 mg PO DAILY ipratropium-albuterol 20-100 mcg/actuation (Combivent Respimat) 1 puff inhalation Q6H lamotrigine 100 mg PO DAILY 90 days lisinopril 40 mg PO DAILY meloxicam 15 mg PO DAILY methylphenidate HCl mg PO 3XD mirtazapine 30 mg PO BEDTIME needle (disp) 18 G (BD Regular Bevel Alburtis) As directed - draw up testosterone needle (disp) 25 gauge (BD Regular Bevel Alburtis) As directed - for testosterone subcutaneous injection omeprazole 20 mg PO DAILY pen needle, diabetic (BD Ultra-Fine Short Pen Needle) As directed once daily sildenafil 100 mg PO DAILY PRN 30 days syringe (disposable) (BD Luer-Sorin Syringe) Testosterone injection weekly tadalafil 5 mg PO DAILY 90 days testosterone cypionate (Depo-Testosterone) 80 mg (0.4 mL) subcut QWEEK 4 weeks thiamine HCl (vitamin B1) (Vitamin B-1) 100 mg PO DAILY Tobacco use date assessed: 12/08/24 Dental Screening Dental Screen Date: 10/09/24 HPI HTN, leg swelling HPI Details 64-year-old male with past medical histo ry of gout, asthma, polysubstance use, hypercholesterolemia, hypertension, BPH, impaired glucose tolerance, ADHD and interstitial lung disease last seen 09/2024 coming in for follow up. Presenting with respiratory issues with lung scarring and management of osteoporosis. The patient has been experiencing low sodium levels, which have worsened over time. He reports muscle cramps, particularly in his hands and legs, and has been advised to increase salt intake. He is currently on hydrochlorothiazide, which may be contributing to the electrolyte imbalance. The patient has a history of hypertension, with current blood pressure readings at 160/100 mmHg. He has been on various antihypertensive medications, including hydrochlorothiazide, which is being reconsidered due to its side effects. The patient has elevated liver enzymes, which have shown some improvement but remain above normal. He has a history of alcohol use, which he has been trying to moderate. [facility] Medical History Vitamin D deficiency Hypogonadism male Numbness of left hand Trigger finger of right hand Rupture of left biceps tendon Right rib fracture Tibial plateau fracture, right Hypogonadism BPH (benign prostatic hyperplasia) Osteoporosis Erectile dysfunction Diverticulitis Cholelithiasis Hypertension Hypercholesterolemia Fatty liver Polysubstance abuse Asthma Gout Surgical History History of carpal tunnel surgery H/O colonoscopy Hx of arthroscopy of left knee Hx of umbilical hernia repair Hx of right knee surgery History of surgery on arm H/O knee surgery Ankle fracture, right Family History Mother Breast cancer Father Skin cancer Hypercholesterolemia Sister Depression Mental health disorder Social History Housing: Apartment Alcohol intake: current Alcohol intake frequency: 0-2 drinks per day Patient Tobacco Use Status: Never used Tobacco Tobacco use type: Cigarette e-Cigarette/Vaping Use: Never Used Second Hand Smoke Exposure: No service: No Current occupational status: disabled Cognitive needs: No Hearing needs: No Vision needs: No Questionnaire Thrive Questionnaire Date Thrive assessed: 10/09/24 KRISHAN-7 AMB Questionnaire KRISHAN-7 Date KRISHAN - 7 assessed: 10/09/24 Source: Developed by Drs. lEiud Proctor, Christine Trinh, Reinaldo Henry and colleagues, with an educational yanely from [employer]. Review of Systems Const Denies body aches, Denies chills, Denies fever(s), Denies headache(s) and Denies poor appetite Eyes Reports no additional complaints ENT Denies dysphagia, Denies dizziness, Denies headache(s) and Denies odynophagia Card Denies chest pain, Denies syncope, Denies edema, Denies irregular heart rhythm, Denies lightheadedness and Denies dyspnea Resp Denies cough and Denies dyspnea GI Denies abdominal pain, Denies constipation, Denies dysphagia, Denies diarrhea, Denies nausea, Denies odynophagia and Denies vomiting Reports no additional complaints Musc Reports no additional complaints and Denies abnormal gait Skin/Breast Reports system reviewed and no additional complaints, except as documented Neuro Denies abnormal gait, Denies dizziness, Denies syncope and Denies headache(s) Psych Reports no additional complaints Physical exam (Primary Care) Vital Signs: Last Vital Signs Temp 97.3 F 12/08/24 13:13 Pulse 94 12/08/24 13:13 BP 150/90 H 12/08/24 13:13 Pulse Ox 95 12/08/24 13:13 Oxygen Delivery Method Room Air 12/08/24 13:13 BMI result Body Mass Index 28.1 Tobacco/Smoking Status: Tobacco use Status Tobacco use date assessed 12/08/24 12/08/24 13:19 Patient Tobacco Use Status Never used Tobacco 12/08/24 13:19 Tobacco use type Cigarette 12/08/24 13:19 e-Cigarette/Vaping Use Never Used 12/08/24 13:19 Thrive Assessment: Date of Thrive Assessment Date Thrive assessed 10/09/24 12/08/24 13:19 Const General: cooperative, healthy appearing, comfortable and no acute distress Orientation/consciousness: patient oriented x3 HENMT Head: Yes normocephalic Ears: hearing grossly normal bilaterally General nose exam: Normal external nose present Eyes General: appearance normal, both eyes and all related structures Conjunctivae: conjunctivae normal Neck Neck: Yes full ROM and Yes no lymphadenopathy Resp Effort & Inspection: normal respiratory effort Auscultation: clear to auscultation bilaterally, no crackles, no rales, no rhonchi and no wheezes Cardio Rate: regular rate Rhythm: regular rhythm Skin General skin exam: no rashes or lesions noted Neuro General: patient oriented x3 Gait exam (Neuro): Normal gait present Extrem General: Yes normal to inspection, Yes full ROM and No edema Psych Affect: normal affect Attitude: cooperative Insight: Good insight present (Psych) Judgement: Good judgement present (Psych) Coding Level of Care Code Est Pt Level 3 (81092) Diagnoses Essential hypertension I10 Hypertension type: essential hypertension Hypercholesterolemia E78.00 Impaired fasting blood sugar R73.01 Fatty liver K76.0 Hyponatremia E87.1 Assessment & Plan Assessment & Plan (1) Hypertension: Code(s): I10 - Essential (primary) hypertension Category: Medical Qualifiers: Hypertension type: essential hypertension Qualified Code(s): I10 - Essential (primary) hypertension Plan: Continue on current blood pressure medication. Avoid salt intake and encourage healthy diet and regular exercise. Plan to discontinue HCTZ at this time due to hyponatremia and start on Metoprolol 25 mg at this time. Advised patient to take the blood pressure at home and bring log to next visit. (2) Hypercholesterolemia: Code(s): E78.00 - Pure hypercholesterolemia, unspecified Category: Medical Plan: Avoid foods that are high in cholesterol such as red meat, fried foods, eggs and baked goods. Triglyceride goal of less than 150 and LDL goal of less than 100. LDL at goal on last labs. (3) Impaired fasting blood sugar: Code(s): R73.01 - Impaired fasting glucose Category: Medical Plan: Decrease the amount of carbohydrates such as pasta, bread, rice, and potatoes and limit the amount of sweets. Although fruits are generally healthy they should be eaten in moderation as they are still high in sugar. Last A1c within goal. (4) Fatty liver: Code(s): K76.0 - Fatty (change of) liver, not elsewhere classified Category: Medical Plan: Healthy diet and regular exercise is encouraged. (5) Hyponatremia: Code(s): E87.1 - Hypo-osmolality and hyponatremia Category: Medical Plan: Hyponatremia on last blood work, plan to discontinue HCTZ at this time and redraw labs prior to next visit. Plan The patient will be taken off hydrochlorothiazide due to its contribution to hyponatremia and muscle cramps. A low dose of metoprolol will be initiated to manage hypertension, with instructions to monitor for any symptoms of lightheadedness or dizziness. The patient is advised to increase salt intake to address low sodium levels. A pulmonary consultation is scheduled to further evaluate lung scarring, and the patient is encouraged to continue moderating alcohol intake to aid in the improvement of liver enzyme levels. The patient is also advised to discuss medication management with his psychiatrist, particularly regarding the psychiatric medications contributing to vision changes. This note was constructed using voice recognition software. While every effort has been made to ensure accuracy and court collections officer, still areas may have been included sometimes these areas may affect the content or meeting of the given symptoms. Total time spent caring for the patient today was 20 minutes. This includes time spent before the visit reviewing the chart, time spent during the visit, and time spent after the visit and documentation. Patient was informed and verbally consented to the use of an ambient scribe for clinic note documentation during this visit. Orders: Orders Comprehensive Met. Panel Today E87.1 - Hypo-osmolality and hyponatremia Medications: New metoprolol tartrate 25 mg PO DAILY 90 tabs 0RF Discontinued benzonatate Discontinued Reason: Patient no longer taking 200 mg PO BID-TID PRN 14 caps 0RF cough J20.9 - Acute bronchitis, unspecified hydrochlorothiazide Discontinued Reason: Patient no longer taking 25 mg PO DAILY 30 tabs 0RF
[2024-12-08 13:13] VITALS: BP 150/90; PULSE 94; TEMP 36.3; O2SAT 95; BMI 28.1
== END 2024-12-08 13:57 | disposition home or self-care (01) ==
LOC: HO.HMCH 13:08
PROVIDERS: PCP Internal Medicine
DX: I10 Essential (primary) hypertension (principal); E78.00 Pure hypercholesterolemia, unspecified; R73.01 Impaired fasting glucose; K76.0 Fatty (change of) liver, not elsewhere classified; E87.1 Hypo-osmolality and hyponatremia

== ENCOUNTER → 2024-12-08 13:08 | Outpatient (BNVA) | payer OTHER, SELFPAY | PROVIDERS: PCP Internal Medicine | DX: I10 Essential (primary) hypertension (principal); J45.909 Unspecified asthma, uncomplicated; E78.00 Pure hypercholesterolemia, unspecified; N40.0 Benign prostatic hyperplasia without lower urinary tract symptoms; R73.01 Impaired fasting glucose; K76.0 Fatty (change of) liver, not elsewhere classified; E87.1 Hypo-osmolality and hyponatremia; J20.9 Acute bronchitis, unspecified | CPT/HCPCS: 99212 ==

== ENCOUNTER 2024-12-09 10:08 | Outpatient (AMB) | payer OTHER, SELFPAY ==
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
[2024-12-09 10:13] VITALS: BP 134/90; PULSE 79; O2SAT 96; BMI 28.7
== END 2024-12-09 10:43 | disposition home or self-care (01) ==
LOC: HO.ENCR 10:09
PROVIDERS: PCP Internal Medicine; Visit Provider Internal Medicine Endocrinology, Diabetes & Metabolism
DX: M81.0 Age-related osteoporosis without current pathological fracture (principal)
CPT/HCPCS: 99213

== ENCOUNTER → 2024-12-09 10:08 | Outpatient (BNVA) | payer OTHER, SELFPAY | PROVIDERS: PCP Internal Medicine; Visit Provider Internal Medicine Endocrinology, Diabetes & Metabolism | DX: M81.0 Age-related osteoporosis without current pathological fracture (principal) | CPT/HCPCS: 99212 ==

== ENCOUNTER 2024-12-21 13:24 | Outpatient (REF) | payer OTHER, SELFPAY ==
--- NOTE | ~2024-12-21 | XR_ITS ---
EXAMINATION: XR CHEST CLINICAL INFORMATION: T78.40XA - Allergy, unspecified, initial encounter COMPARISON: 10/10/2024. TECHNIQUE: 2 views of the chest were obtained. FINDINGS: The cardiac, hilar, and mediastinal contours are normal. The lungs are clear bilaterally. There is no pneumothorax or pleural effusion. There is no focal osseous or soft tissue abnormality. There are healed right rib fractures. There are degenerative changes involving the spine and right greater than left shoulder joints. XR/XR chest 2V IMPRESSION: No active pulmonary disease. Electronically signed by: Justino Boateng MD 12/21/2024 02:37 PM EDT
[2024-12-21 15:38] LABS: Hematocrit 49.7 % (42.0-52.0); Hemoglobin 17.0 g/dl (14.0-18.0); Imm Gran Abs Auto 0.03 X10*3/uL (0.00-0.03); Imm Gran Pct Auto 0.3 % (0.0-0.4); Lymphocytes Absolute Auto 1.9 X10*3/uL (1.2-4.9); MANUAL DIFF FLAG SCAN; Mean Corpuscular HGB Conc 34.2 g/dl (31.0-36.0); Mean Corpuscular Hemoglobin 31.5 pg (27.0-33.0); Mean Corpuscular Volume 92.0 fL (80.0-98.0); NRBC Abs Auto 0.000 X10*3/uL (0.0-0.012); NRBC Pct Auto 0.0 /100WBC (0.0-0.2); Platelet Count 254 X10*3/uL (160-400); Red Blood Count 5.40 X10*6/uL (4.60-5.80); SCAN SMEAR FLAG 1; White Blood Count 11.5 X10*3/uL (4.8-10.8)
[2024-12-25 09:58] LABS: Class Alternaria alternata 3; Class Aspergillus fumigatus 2; Class Bermuda Grass 0/1; Class Birch 2; Class Cat Dander 0/1; Class Cladosporium herbarum 1; Class Cockroach 0; Class Common Ragweed 2; Class Cottonwood 1; Class Derm. pterony 3; Class Dermatophagoides farinae 3; Class Dog Dander 3; Class Elm 1; Class Maple Box Elder 1; Class Mountain Cedar 0/1; Class Mouse Urine Protein 0; Class Mugwort 3; Class Oak 2; Class Penicillium crysogenum 0/1; Class Rough Pigweed 0/1; Class Sheep Sorrel 0; Class Sycamore 1; Class Timothy Grass 0/1; Class Walnut Tree 0/1; Class White Ash 0/1; Class White Mulberry 0; D002 - IgE D farinae 8.09 kU/L; E001 - IgE Cat Dander 0.33 kU/L; E005 - IgE Dog Dander 7.37 kU/L; G006 - IgE Timothy Grass 0.17 kU/L; I006-IgE Cockroach, German <0.10 kU/L; M002 - IgE Cladosporium herbar 0.58 kU/L; M003 - IgE Aspergillus fumigat 1.26 kU/L; M006 - IgE Alternaria alternat 6.45 kU/L; T001 IgE Maple/Box Elder 0.43 kU/L; T006 - IgE Cedar, Mountain 0.25 kU/L; T007 - IgE Oak, White 2.50 kU/L; T008 IgE Elm, American 0.35 kU/L; T010 - IgE Walnut 0.33 kU/L; T011 - IgE Maple Leaf Sycamore 0.62 kU/L; T014 - IgE Cottonwood 0.52 kU/L; T015 - IgE Ash, White 0.23 kU/L; T070 - IgE White Mulberry <0.10 kU/L; W001 - IgE Ragweed, Short 2.92 kU/L; W006 - IgE Mugwort 3.70 kU/L; W014 IgE Pigweed, Common 0.11 kU/L; W018 IgE Sheep Sorrel <0.10 kU/L
[2024-12-26 12:23] LABS: Asperg fumigatus Precip Abs NEGATIVE (NEGATIVE); Micropoly faeni Abs NEGATIVE (NEGATIVE); Saccharo pora viridis Abs NEGATIVE (NEGATIVE); Thermo candidus Abs NEGATIVE (NEGATIVE)
== END 2024-12-21 13:25 | disposition home or self-care (01) ==
LOC: HO.XRAY 13:24
PROVIDERS: Absent Provider Urology; PCP Internal Medicine; Referring Provider Internal Medicine; Visit Provider Hospitalist
DX: E29.1 Testicular hypofunction (principal); R91.1 Solitary pulmonary nodule; T78.40XA Allergy, unspecified, initial encounter; J45.909 Unspecified asthma, uncomplicated; R91.8 Other nonspecific abnormal finding of lung field; J02.9 Acute pharyngitis, unspecified; J84.9 Interstitial pulmonary disease, unspecified
CPT/HCPCS: 36415; 71046; 82784; 82785; 84403; 85025; 85027; 85652; 86003; 86331; 86606; 86609; 99202

== ENCOUNTER 2024-12-21 13:24 | Outpatient (AMB) | payer OTHER, SELFPAY ==
--- NOTE | 2024-12-21 13:28 | MHC.OFFVIS ---
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 The patient is a 64-year-old gentleman with known history of asthma with recurrent exacerbations and frequent bronchitis episodes. Apparently was in her usual state health until back in October when he started developing worsening cough. He ultimately went to the ER with a had an x-ray done. Demonstrating some increasing interstitial markings. It was read ?chronic interstitial lung disease. Patient did become concerned. In view of his ongoing cough moderate severity he was referred to Pulmonary. Currently the patient feels better. He has been on inhalers for prolonged period of time. He does get some relief from the inhaler therapy. We did review his chest x-ray. Does have some increased interstitial markings but most likely are subacute from his illness at that time. I suspect that they will clear up. Will go ahead and repeat a chest x-ray and also pulmonary function studies. If the x-ray still abnormal then will go ahead and request a CT scan of the chest. I also personally reviewed a CT scan of the abdomen from 2019 with the patient had for evaluation of an abdominal process. But the lung windows with pretty clear without any evidence of any interstitial lung disease which is reassuring. The patient will follow-up after his x-ray and also PFTs. In view of his significant asthma like symptoms will go ahead and request allergy testing and other immunological testing in view of his recurrent infections. Will follow-up in 2-3 months. If he has any issues prior to this he will call for an earlier assessment. Also to note he does have an area of ulceration in the soft palate on the right-hand side. Therefore, will send him some doxycycline to treat for the possibility of a ongoing infection. He should follow-up with his primary care doctor if no better. [facility] Medical History (Updated 12/21/24 @ 22:05 by Sterling Del Rio MD) Allergies Vitamin D deficiency Hypogonadism male Numbness of left hand Trigger finger of right hand Rupture of left biceps tendon Right rib fracture Tibial plateau fracture, right Hypogonadism BPH (benign prostatic hyperplasia) Osteoporosis Erectile dysfunction Diverticulitis Cholelithiasis Hypertension Hypercholesterolemia Fatty liver Polysubstance abuse Asthma Gout Surgical History History of carpal tunnel surgery H/O colonoscopy Hx of arthroscopy of left knee Hx of umbilical hernia repair Hx of right knee surgery History of surgery on arm H/O knee surgery Ankle fracture, right Family History Mother Breast cancer Father Skin cancer Hypercholesterolemia Sister Depression Mental health disorder Social History Housing: Apartment Alcohol intake: current Alcohol intake frequency: 0-2 drinks per day Patient Tobacco Use Status: Never used Tobacco Tobacco use type: Cigarette e-Cigarette/Vaping Use: Never Used Second Hand Smoke Exposure: No service: No Current occupational status: disabled Cognitive needs: No Hearing needs: No Vision needs: No Review of Systems Const Denies body aches, Denies chills, Denies fever(s), Denies headache(s) and Denies poor appetite Eyes Reports no additional complaints ENT Denies dizziness and Denies headache(s) Card Denies chest pain, Denies syncope, Denies edema, Denies irregular heart rhythm, Denies lightheadedness and Denies dyspnea Resp Denies cough and Denies dyspnea GI Denies abdominal pain Reports no additional complaints Musc Reports no additional complaints and Denies abnormal gait Skin/Breast Reports system reviewed and no additional complaints, except as documented Neuro Denies abnormal gait, Denies dizziness, Denies syncope and Denies headache(s) Psych Reports no additional complaints Physical Exam Vital Signs: Last Vital Signs Pulse 83 12/21/24 13:29 BP 144/94 H 12/21/24 13:29 Pulse Ox 97 12/21/24 13:29 Oxygen Delivery Method Room Air 12/21/24 13:29 BMI result Body Mass Index 28.8 Const General: cooperative, healthy appearing, comfortable and no acute distress Orientation/consciousness: patient oriented x3 HEENT Face and sinus: Yes normal facial exam Mouth: moist mucous membranes Throat: Yes posterior oropharynx abnormal (erythema of the right sided soft palate) Neck Neck: Yes normal visual inspection, Yes full ROM and Yes trachea midline Chest Chest palpation & inspection: normal inspection of the chest Resp Effort & Inspection: normal respiratory effort, able to speak in complete sentences and no respiratory distress Auscultation: diminished lung sounds GI Inspection: Yes normal to inspection Back/Spine/Pelvis Cervical Spine: normal cervical lordosis Thoracic/Lumbar Spine: thoracic and lumbar spine normal to inspection Skin General skin exam: no rashes or lesions noted Neuro General: patient oriented x3, gait normal, tone normal and moves all extremities Extrem General: Yes normal to inspection and Yes capillary refill normal Assessment & Plan Assessment & Plan (1) Asthma: Code(s): J45.909 - Unspecified asthma, uncomplicated Category: Medical Qualifiers: Asthma severity: mild Asthma complication type: uncomplicated Asthma persistence: intermittent Qualified Code(s): J45.20 - Mild intermittent asthma, uncomplicated (2) Interstitial lung disease: Comment: Possibly over-read on the CXR. Likely subacute atypical reticulo-nodular opacities Code(s): J84.9 - Interstitial pulmonary disease, unspecified Category: Medical (3) Pharyngitis: Code(s): J02.9 - Acute pharyngitis, unspecified Category: Medical Qualifiers: Pharyngitis/tonsillitis etiology: unspecified etiology Qualified Code(s): J02.9 - Acute pharyngitis, unspecified Plan Bloodwork repeat CXR, if abnormal will request CT chest PFTs HEIDI as needed continue ICS inhaler doxycycline to treat pharyngitis F/U after PFTs 2-3 months Orders: Orders Resp Allergy Profile Region I Today J45.909 - Unspecified asthma, uncomplicated, R91.1 - Solitary pulmonary nodule, T78.40XA - Allergy, unspecified, initial encounter Complete Blood Count Auto Diff Today J45.909 - Unspecified asthma, uncomplicated, T78.40XA - Allergy, unspecified, initial encounter Hypersensitive Pneumonitis Prf Today J45.909 - Unspecified asthma, uncomplicated, R91.8 - Other nonspecific abnormal finding of lung field, T78.40XA - Allergy, unspecified, initial encounter PFT pulmonary function test Today J45.909 - Unspecified asthma, uncomplicated Immunoglobulins,IgG IgA IgM Today J45.909 - Unspecified asthma, uncomplicated, T78.40XA - Allergy, unspecified, initial encounter Erythrocyte Sedimentation Rate Today J45.909 - Unspecified asthma, uncomplicated, T78.40XA - Allergy, unspecified, initial encounter XR chest 2V Today J45.909 - Unspecified asthma, uncomplicated, T78.40XA - Allergy, unspecified, initial encounter Medications: New doxycycline hyclate 100 mg PO BID 20 caps 0RF 10 days Coding Level of Care Code New Pt Level 4 (59403) Diagnoses Mild intermittent asthma without complication J45.20 Asthma severity: mild Asthma complication type: uncomplicated Asthma persistence: intermittent Interstitial lung disease J84.9 Pharyngitis, unspecified etiology J02.9 Pharyngitis/tonsillitis etiology: unspecified etiology Time Spent (min) 40
[2024-12-21 13:29] VITALS: BP 144/94; PULSE 83; O2SAT 97; BMI 28.8
== END 2024-12-21 14:04 | disposition home or self-care (01) ==
LOC: HO.HPS 13:25
PROVIDERS: PCP Internal Medicine; Referring Provider Internal Medicine; Visit Provider Hospitalist
DX: J45.20 Mild intermittent asthma, uncomplicated (principal); J84.9 Interstitial pulmonary disease, unspecified; J02.9 Acute pharyngitis, unspecified
CPT/HCPCS: 99204

== ENCOUNTER → 2024-12-21 14:25 | Outpatient (BNV) | payer OTHER, SELFPAY | PROVIDERS: Absent Provider Urology; PCP Internal Medicine; Referring Provider Internal Medicine; Visit Provider Radiology Diagnostic Radiology | DX: T78.40XA Allergy, unspecified, initial encounter (principal) | CPT/HCPCS: 71046 ==

== ENCOUNTER 2025-01-04 12:19 | Outpatient (REF) | payer OTHER, SELFPAY ==
[2025-01-04 12:34] LABS: MANUAL DIFF FLAG NO
[2025-01-04 13:13] LABS: Hematocrit 48.1 % (42.0-52.0); Hemoglobin 16.9 g/dl (14.0-18.0); Imm Gran Abs Auto 0.02 X10*3/uL (0.00-0.03); Imm Gran Pct Auto 0.3 % (0.0-0.4); Lymphocytes Absolute Auto 2.8 X10*3/uL (1.2-4.9); Mean Corpuscular HGB Conc 35.1 g/dl (31.0-36.0); Mean Corpuscular Hemoglobin 31.5 pg (27.0-33.0); Mean Corpuscular Volume 89.7 fL (80.0-98.0); NRBC Abs Auto 0.000 X10*3/uL (0.0-0.012); NRBC Pct Auto 0.0 /100WBC (0.0-0.2); Platelet Count 258 X10*3/uL (160-400); Red Blood Count 5.36 X10*6/uL (4.60-5.80); White Blood Count 6.3 X10*3/uL (4.8-10.8)
[2025-01-04 13:23] LABS: Hemoglobin A1C 185.6395 umol/L; Total Hemoglobin (HGBA1C) 4332.1832 umol/L
[2025-01-04 13:40] LABS: Appearance Urine Clear; Glucose Urine UA Negative (Negative); PH 7.0 (5.0-9.0); Specific Gravity - Urine 1.010 (1.005-1.025); UMIC TRIGGER UACC YES
[2025-01-04 13:50] LABS: Alanine Aminotransferase 57 U/L (0-40); Albumin Level 4.6 g/dL (3.5-5.0); Alkaline Phosphatase 59 U/L (39-117); Anion Gap 12 (12-20); Aspartate Amino Transferase 53 U/L (5-37); Blood Urea Nitrogen 9 mg/dL (9-16); Calcium 9.2 mg/dL (8.4-10.2); Carbon Dioxide 26 mmol/L (22-29); Chloride 96 mmol/L (96-108); Estimated Glomerular Filt Rate > 60; Magnesium 1.5 mg/dL (1.6-2.6); Potassium 4.1 mmol/L (3.3-5.1); Sodium 130 mmol/L (135-145); Total Protein 7.6 g/dL (6.5-8.0)
== END 2025-01-04 12:20 | disposition home or self-care (01) ==
LOC: HO.LAB 12:19
PROVIDERS: PCP Internal Medicine; Visit Provider Internal Medicine
DX: E87.1 Hypo-osmolality and hyponatremia (principal); R73.9 Hyperglycemia, unspecified
CPT/HCPCS: 36415; 80053; 81001; 83036; 83735; 85025

== ENCOUNTER 2025-01-22 10:46 | Outpatient (REF) | payer OTHER, SELFPAY ==
[2025-01-22 13:56] LABS: Alanine Aminotransferase 65 U/L (0-40); Albumin Level 5.1 g/dL (3.5-5.0); Alkaline Phosphatase 70 U/L (39-117); Anion Gap 14 (12-20); Aspartate Amino Transferase 57 U/L (5-37); Blood Urea Nitrogen 10 mg/dL (9-16); Calcium 9.8 mg/dL (8.4-10.2); Carbon Dioxide 25 mmol/L (22-29); Chloride 93 mmol/L (96-108); Estimated Glomerular Filt Rate > 60; Potassium 4.3 mmol/L (3.3-5.1); Sodium 128 mmol/L (135-145); Total Protein 8.3 g/dL (6.5-8.0)
[2025-01-22 14:10] LABS: Appearance Urine Clear; Glucose Urine UA Negative (Negative); PH 7.0 (5.0-9.0); Specific Gravity - Urine 1.015 (1.005-1.025); UMIC TRIGGER UACC YES
[2025-01-28 16:29] LABS: Testosterone, Free 171.1 pg/mL (35.0-155.0)
== END 2025-01-22 10:47 | disposition home or self-care (01) ==
LOC: HO.10HDL 10:46
PROVIDERS: Urology; Visit Provider Internal Medicine
DX: E29.1 Testicular hypofunction (principal); R73.9 Hyperglycemia, unspecified
CPT/HCPCS: 36415; 80053; 81001; 81003; 84402; 84403

== ENCOUNTER 2025-01-28 13:34 | Outpatient (AMB) | payer OTHER, SELFPAY ==
--- NOTE | 2025-01-28 13:35 | A.OFFPC_ITS ---
Vital Signs 01/28/25 13:36 01/28/25 13:53 Height 5 ft 9 in Weight 192 lb 8 oz BMI 28.4 BP 146/90 H 140/70 H Blood Pressure Location Lt brachial Lt brachial Position Sitting Sitting Pulse 94 Pulse Source Pulse Oximeter Temp 97.3 F Temp Source Temporal Artery Scan Pulse Oximetry (%) 96 Oxygen Delivery Method Room Air Intake Visit Reasons: f/u HTN Intake Note: Patient is here to follow up on HTN. Audio Visual Specialist Required: No C++ Quant Developer: Not Required per policy Accompanied by: Self / Same As Patient Allergies moxifloxacin (From AVELOX) Allergy (Severe, Verified 01/28/25 13:36) SEVERE MOUTH/GENITAL SORES, swelling nitrofurantoin (NITROFURANTOIN) Allergy (Intermediate, Verified 01/28/25 13:36) BLOATING, bloated amlodipine Adverse Reaction (Intermediate, Verified 01/28/25 13:36) leg swelling metoprolol Adverse Reaction (Intermediate, Verified 01/28/25 13:36) Nausea and Vomiting SEASONAL ALLERGIES Allergy (Mild, Uncoded 01/28/25 13:36) RUNNY NOSE Medication List - Last Reconciled 01/28/25 by Lillian Atkinson MD amlodipine 5 mg PO DAILY atorvastatin 10 mg PO BEDTIME calcium citrate-vitamin D3 315 mg-5 mcg (200 unit) 2 tabs PO BID 90 days chlorhexidine gluconate 0.12% 15 mL buccal BID 15 days clotrimazole-betamethasone 1-0.05 % 1 appl topical BID fluticasone propionate 50 mcg/actuation 2 sprays intranasal DAILY fluticasone propionate 110 mcg/actuation 2 puffs inhalation BID folic acid 1 mg PO DAILY ipratropium-albuterol 20-100 mcg/actuation (Combivent Respimat) 1 puff inhalation Q6H lamotrigine 100 mg PO DAILY 90 days lisinopril 40 mg PO DAILY magnesium oxide 400 mg PO BID meloxicam 15 mg PO DAILY mirtazapine 30 mg PO BEDTIME needle (disp) 18 G (BD Regular Bevel [place]) As directed - draw up testosterone needle (disp) 25 gauge (BD Regular Bevel [place]) As directed - for testosterone subcutaneous injection omeprazole 20 mg PO DAILY pen needle, diabetic (BD Ultra-Fine Short Pen Needle) As directed once daily sildenafil 100 mg PO DAILY PRN 30 days syringe (disposable) (BD Luer-Sorin Syringe) Testosterone injection weekly tadalafil 5 mg PO DAILY 90 days testosterone cypionate (Depo-Testosterone) 80 mg (0.4 mL) subcut QWEEK 4 weeks thiamine HCl (vitamin B1) (Vitamin B-1) 100 mg PO DAILY Tobacco use date assessed: 01/28/25 Dental Screening Dental Screen Date: 10/09/24 [facility] Medical History (Updated 12/21/24 @ 22:05 by Sterling Del Rio MD) Allergies Vitamin D deficiency Hypogonadism male Numbness of left hand Trigger finger of right hand Rupture of left biceps tendon Right rib fracture Tibial plateau fracture, right Hypogonadism BPH (benign prostatic hyperplasia) Osteoporosis Erectile dysfunction Diverticulitis Cholelithiasis Hypertension Hypercholesterolemia Fatty liver Polysubstance abuse Asthma Gout Surgical History History of carpal tunnel surgery H/O colonoscopy Hx of arthroscopy of left knee Hx of umbilical hernia repair Hx of right knee surgery History of surgery on arm H/O knee surgery Ankle fracture, right Family History Mother Breast cancer Father Skin cancer Hypercholesterolemia Sister Depression Mental health disorder Social History Housing: Apartment Alcohol intake: current Alcohol intake frequency: 0-2 drinks per day Patient Tobacco Use Status: Never used Tobacco Tobacco use type: Cigarette e-Cigarette/Vaping Use: Never Used Second Hand Smoke Exposure: No service: No Current occupational status: disabled Cognitive needs: No Hearing needs: No Vision needs: No Questionnaire Thrive Questionnaire Date Thrive assessed: 10/09/24 KRISHAN-7 AMB Questionnaire KRISHAN-7 Date KRISHAN - 7 assessed: 10/09/24 Source: Developed by Drs. Eliud Proctor, Christine Trinh, Reinaldo Henry and colleagues, with an educational yanely from [email or web address]. Physical exam (Primary Care) Vital Signs: Last Vital Signs Temp 97.3 F 01/28/25 13:36 Pulse 94 01/28/25 13:36 BP 140/70 H 01/28/25 13:53 Pulse Ox 96 01/28/25 13:36 Oxygen Delivery Method Room Air 01/28/25 13:36 BMI result Body Mass Index 28.4 Tobacco/Smoking Status: Tobacco use Status Tobacco use date assessed 01/28/25 01/28/25 13:41 Patient Tobacco Use Status Never used Tobacco 01/28/25 13:41 Tobacco use type Cigarette 01/28/25 13:41 e-Cigarette/Vaping Use Never Used 01/28/25 13:41 Thrive Assessment: Date of Thrive Assessment Date Thrive assessed 10/09/24 01/28/25 13:41 Const General: alert; No acute distress Eyes Conjunctivae: conjunctivae normal Resp Auscultation: clear to auscultation bilaterally Cardio Rate: regular rate Rhythm: regular rhythm GI Inspection: Yes normal to inspection Extrem General: Yes normal to inspection and No edema Coding Level of Care Code Est Pt Level 4 (17728) Complex EM visit Add On G2211 Diagnoses Essential hypertension I10 Hypertension type: essential hypertension Hypercholesterolemia E78.00 Impaired fasting blood sugar R73.01 Hypogonadism in male E29.1 Hyponatremia E87.1 Osteoporosis M81.0 Mild intermittent asthma without complication J45.20 Asthma complication type: uncomplicated Asthma persistence: intermittent Asthma severity: mild Assessment & Plan Assessment & Plan (1) Hypertension: Code(s): I10 - Essential (primary) hypertension Category: Medical Qualifiers: Hypertension type: essential hypertension Qualified Code(s): I10 - Essential (primary) hypertension Plan: Continue with blood pressure medication. Decrease salt intake and exercise. Medication change due to hyponatremia (2) Hypercholesterolemia: Code(s): E78.00 - Pure hypercholesterolemia, unspecified Category: Medical Plan: Avoid fried foods, chicken skin, eggs, butter margarine, pastries and meat. Be it pork or beef they have a lot of cholesterol LDL goal of less than 130 and triglyceride of less than 150 on atorvastatin 10 mg once a day (3) Impaired fasting blood sugar: Code(s): R73.01 - Impaired fasting glucose Category: Medical Plan: Decrease the amount of carbohydrate intake, pasta, bread, rice and potatoes are all sugar and that is aside from all the sweet stuff, remember that fruits are good but they are Sweet also. (4) Hypogonadism in male: Code(s): E29.1 - Testicular hypofunction Category: Medical Plan: Patient follows up with urology (5) Hyponatremia: Code(s): E87.1 - Hypo-osmolality and hyponatremia Category: Medical Plan: Advised repeat blood work (6) Osteoporosis: Comment: Secondary to alcohol abuse, hypogonadism and PPI use, July 2023 Code(s): M81.0 - Age-related osteoporosis without current pathological fracture Category: Medical Plan: Patient has seen endocrinology and has been started on Tymlos will continue to follow-up bone density (7) Asthma: Code(s): J45.909 - Unspecified asthma, uncomplicated Category: Medical Qualifiers: Asthma complication type: uncomplicated Asthma persistence: intermittent Asthma severity: mild Qualified Code(s): J45.20 - Mild intermittent asthma, uncomplicated Plan: Patient has seen Pulmonary and advised repeat chest x-ray and if abnormal to proceed with doing CT scan patient is on Flovent Combivent. Plan History of Present Illness The patient is a 64-year-old male presenting with a follow-up for interstitial lung disease and hyponatremia. He has a history of polysubstance abuse, asthma, gout, hypertension, hypercholesterolemia, cholelithiasis, benign prostatic hyperplasia, osteoporosis, anxiety disorder, impaired glucose tolerance, alcohol abuse, hepatic steatosis, hypogonadism, ADHD, lumbar degenerative disc disease, avascular necrosis of both hips, and interstitial lung disease. The patient reports a history of alcohol abuse and hepatic steatosis, which have been managed with lifestyle modifications. He has been diagnosed with hypogonadism and ADHD, for which he has been receiving treatment. The patient has a history of lumbar degenerative disc disease and avascular necrosis of both hips, with a left hip replacement performed in 2023. He is currently experiencing symptoms of hyponatremia, which led to the discontinuation of hydrochlorothiazide and initiation of metoprolol. The patient is up to date with colonoscopy and bone density screenings, indicating adherence to preventative care measures. He was advised to follow up with urology and endocrinology for ongoing management of benign prostatic hyperp lasia and osteoporosis, respectively. Health Maintenance - Colonoscopy: Up to date - Bone density screening: Up to date Social History - Alcohol use: History of alcohol abuse, currently reduced to 2-3 drinks per day Review of Systems - General: Reports weight gain, decreased appetite, and fatigue - Cardiovascular: Reports hypertension, denies chest pain - Respiratory: Reports dyspnea, denies cough - Gastrointestinal: Reports nausea, vomiting, and abdominal pain - Musculoskeletal: Reports joint pain, muscle cramps, and neuropathy - Neurological: Reports neuropathy in the right foot and hand Physical Exam Results - Labs: Hyponatremia noted with sodium level of 128 mEq/L on January 22 - Labs: Mildly elevated blood glucose at 102 mg/dL, Hemoglobin A1c at 6.1% in December - Labs: Elevated liver enzymes - Imaging: Chest X-ray from December 21 was normal Plan The patient will continue to follow up with endocrinology for osteoporosis management, and Tymlos therapy will be reassessed. For hypertension, the patient is on metoprolol, and blood pressure will be monitored closely to ensure it remains within target range. Hyponatremia management includes discontinuation of hydrochlorothiazide and monitoring of sodium levels, with a recent level of 128 mEq/L noted. The patient is advised to maintain adequate hydration and nutritional intake to support electrolyte balance. The patient will continue using inhalers for asthma management and follow up with pulmonary for interstitial lung disease, with a repeat chest X-ray advised if symptoms persist. The patient is also advised to follow up with urology for benign prostatic hyperplasia management. Patient was informed and verbally consented to the use of an ambient scribe for clinic note documentation during this visit. Discussion Notes During the visit, we discussed the management of the patient's osteoporosis with endocrinology and the potential need to reassess Tymlos therapy. We reviewed the patient's hypertension management, emphasizing the importance of monitoring blood pressure while on metoprolol. The patient was informed about the discontinuation of hydrochlorothiazide due to hyponatremia and the need to monitor sodium levels closely. We also discussed the importance of maintaining hydration and nutritional intake to support electrolyte balance. The patient was advised to continue using inhalers for asthma and to follow up with pulmonary for interstitial lung disease, with a repeat chest X-ray if symptoms persist. Additionally, follow-up with urology for benign prostatic hyperplasia management was recommended. Patient Instructions - Continue taking metoprolol as prescribed and monitor blood pressure regularly. - Maintain adequate hydration and nutritional intake to support electrolyte balance. - Follow up with endocrinology for osteoporosis management and reassessment of Tymlos therapy. - Use inhalers as prescribed for asthma management and follow up with pulmonary for interstitial lung disease. - Schedule a follow-up appointment with urology for benign prostatic hyperplasia management. Orders: Orders Basic Metabolic Panel Today E87.1 - Hypo-osmolality and hyponatremia Magnesium Today E87.1 - Hypo-osmolality and hyponatremia Medications: Discontinued meloxicam Discontinued Reason: Patient Completed Course 15 mg PO DAILY 90 tabs 1RF
[2025-01-28 13:36] VITALS: BP 146/90; PULSE 94; TEMP 36.3; O2SAT 96; BMI 28.4
[2025-01-28 13:53] VITALS: BP 140/70
== END 2025-01-28 14:10 | disposition home or self-care (01) ==
LOC: HO.HMCH 13:34
PROVIDERS: PCP Internal Medicine; Visit Provider Internal Medicine
DX: I10 Essential (primary) hypertension (principal); R73.01 Impaired fasting glucose; E29.1 Testicular hypofunction; M81.0 Age-related osteoporosis without current pathological fracture; J45.20 Mild intermittent asthma, uncomplicated

== ENCOUNTER → 2025-01-28 13:34 | Outpatient (BNVA) | payer OTHER, SELFPAY | PROVIDERS: PCP Internal Medicine; Visit Provider Internal Medicine | DX: I10 Essential (primary) hypertension (principal); R73.01 Impaired fasting glucose; E29.1 Testicular hypofunction; M81.0 Age-related osteoporosis without current pathological fracture; J45.20 Mild intermittent asthma, uncomplicated | CPT/HCPCS: 99212 ==

== ENCOUNTER 2025-02-01 10:37 | Outpatient (REF) | payer OTHER, SELFPAY ==
[2025-02-01 13:11] LABS: Appearance Urine Clear; Glucose Urine UA Negative (Negative); PH 7.0 (5.0-9.0); Specific Gravity - Urine 1.010 (1.005-1.025)
[2025-02-01 13:36] LABS: Anion Gap 10 (12-20); Blood Urea Nitrogen 8 mg/dL (9-16); Calcium 9.2 mg/dL (8.4-10.2); Carbon Dioxide 29 mmol/L (22-29); Chloride 99 mmol/L (96-108); Estimated Glomerular Filt Rate > 60; Magnesium 1.8 mg/dL (1.6-2.6); Potassium 4.3 mmol/L (3.3-5.1); Sodium 134 mmol/L (135-145)
== END 2025-02-01 10:38 | disposition home or self-care (01) ==
LOC: HO.10HDL 10:37
PROVIDERS: Visit Provider Internal Medicine
DX: E87.1 Hypo-osmolality and hyponatremia (principal); R30.0 Dysuria
CPT/HCPCS: 36415; 80048; 81003; 83735

== ENCOUNTER 2025-02-03 14:19 | Outpatient (AMB) | payer OTHER, SELFPAY ==
--- NOTE | 2025-02-03 14:19 | A.OFFVIS_ITS ---
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 They are a patient of Dr Atkinson. They are seen in the office today for the following urologic conditions. ?- erectile dysfunction - low testosterone - incomplete bladder emptying - premature ejaculation Telemedicine Evaluation 15 min Consultation [employer] Six-month follow-up T labs elevated - 02/08 1100 Saturday Erectile dysfunction and BPH responds well to daily tadalafil Hypogonadism Current treatment injectable testosterone Laboratories - 01/04 T 674 - 08/08 T 300 P 0.4 H 46.9 F7.7, 02/05 T 481 0.52 50.5, 05/08 T 560, 05/09 515 1.0 51.3, 11/07 T 522 50.5 Erectile dysfunction:? Has been using daily tadalafil ?Partial responses Addition of maximal sildenafil - Decreased premature ejaculation with paroxetine ? Symptoms have been present for/since?Ongoing.? Current treatment includes?daily tadalafil.? Prior therapies include?oral medications.? At this time he experiences erections?are partial and adequate for vaginal penetration, that undergo rapid detumesence after penetration, DENISA 8- 11 Moderate ED.? Currently they are?is not in a relationship.? Associated problems? hypertension ?Yes ? diabetes ?No ? dyslipidemia ?Yes ? Medications include(s)?antidepressant medication.? Overall he is ?satisfied with the current management.? Therapeutic plan includes?increasing dose of oral medication daily Lower Urinary Tract Symptoms:? Good response with daily tadalafil. ? Current visit is for?further evaluation of, lower urinary tract symptoms.? Current treatment includes?observation.? Prostate Symptom Score?Moderate (9-19), Bother 3.? Symptoms include?incomplete emptying, weak stream, and are progressing.? Prostate volume?30-50gm.? Testing at next visit will include?bladder scan.? Treatment plan?continue with current medications [facility] Medical History (Updated 12/21/24 @ 22:05 by Sterling Del Rio MD) Allergies Vitamin D deficiency Hypogonadism male Numbness of left hand Trigger finger of right hand Rupture of left biceps tendon Right rib fracture Tibial plateau fracture, right Hypogonadism BPH (benign prostatic hyperplasia) Osteoporosis Erectile dysfunction Diverticulitis Cholelithiasis Hypertension Hypercholesterolemia Fatty liver Polysubstance abuse Asthma Gout Surgical History History of carpal tunnel surgery H/O colonoscopy Hx of arthroscopy of left knee Hx of umbilical hernia repair Hx of right knee surgery History of surgery on arm H/O knee surgery Ankle fracture, right Family History Mother Breast cancer Father Skin cancer Hypercholesterolemia Sister Depression Mental health disorder Social History Housing: Apartment Alcohol intake: current Alcohol intake frequency: 0-2 drinks per day Patient Tobacco Use Status: Never used Tobacco Tobacco use type: Cigarette e-Cigarette/Vaping Use: Never Used Second Hand Smoke Exposure: No service: No Current occupational status: disabled Cognitive needs: No Hearing needs: No Vision needs: No Review of Systems Const All systems reviewed & are unremarkable except as noted in HPI and below Reports no additional complaints Resp Reports no additional complaints GI Reports no additional complaints Reports as per HPI Musc Reports no additional complaints Physical Exam Telemedicine evaluation Appropriate responses Regular breathing rate and rhythm HEENT Head: Yes normal to inspection Ears: hearing grossly normal bilaterally Eyes General: appearance normal, both eyes and all related structures Neck Neck: Yes normal visual inspection Chest Chest palpation & inspection: normal inspection of the chest Resp Effort & Inspection: normal respiratory effort and able to speak in complete sentences Telehealth Telehealth Location of provider rendering services: practice address Location of patient: address on file Patient Identification confirmed using: Name, : Yes Telehealth method: voice only Patient verbally consented to treatment: Yes Patient verbally consented to billing insurance company: Yes Patient informed of any privacy concerns related to visit: Yes Assessment & Plan Assessment & Plan (1) BPH (benign prostatic hyperplasia): Comment: 49 July 2023 Code(s): N40.0 - Benign prostatic hyperplasia without lower urinary tract symptoms Category: Medical Plan Refill medications Six-month follow-up office Orders: Orders Prostate Specific Antigen 5 Months E29.1 - Testicular hypofunction Testosterone, Total 5 Months E29.1 - Testicular hypofunction Medications: Changed From sildenafil administer 60 minutes before intended activity 100 mg PO DAILY 30 days PRN 30 tabs 1RF sexual activity N52.9 - Male erectile dysfunction, unspecified To sildenafil administer 60 minutes before intended activity - [id number] [facility] [id number] Member [id number] 100 mg PO DAILY PRN 30 tabs 1RF sexual activity 30 days N52.9 - Male erectile dysfunction, unspecified Refilled needle (disp) 25 gauge (BD Regular Bevel [place]) As directed - for testosterone subcutaneous injection 30 ea 0RF E29.1 - Testicular hypofunction tadalafil 5 mg PO DAILY 90 tabs 1RF 90 days N40.0 - Benign prostatic hyperplasia without lower urinary tract symptoms testosterone cypionate (Depo-Testosterone) Dispose of vial after use 80 mg (0.4 mL) subcut QWEEK 4 mL 5RF 4 weeks E29.1 - Testicular hypofunction, [id number] Patient Instructions: This note is constructed using voice recognition software. While every effort has been made to ensure accuracy photo journalist errors may have been included. Imaging studies, laboratory and physical exam results were discussed and reviewed in detail. No major barriers to patient understanding were identified. An opportunity to ask questions regarding the treatment plan was provided. All questions were answered. The patient expressed understanding and agreement with the above treatment plan. The patient is aware they should contact our office by phone for worsening of their current condition or the appearance of new urologic symptoms. Compliance is encouraged with any medications and followup testing that is ordered. It is a privilege to participate in the urologic care of your patient. If you have any questions or concerns regarding treatment for the above conditions, or other urologic issues, please do not hesitate to contact me. The office telephone contact is [phone]. Sincerely, Dr Zach Huerta MD, DEE [facility] - Urology Compassionate Specialist Care for the Genitourinary System Coding Level of Care Code Tele Est Pt Level 4 (28397) Diagnoses BPH (benign prostatic hyperplasia) N40.0
== END 2025-02-03 14:50 | disposition home or self-care (01) ==
LOC: HO.HUSH 14:19
PROVIDERS: PCP Internal Medicine; Visit Provider Urology
DX: N40.0 Benign prostatic hyperplasia without lower urinary tract symptoms (principal)
CPT/HCPCS: 99214

== ENCOUNTER 2025-02-09 10:46 | Outpatient (REF) | payer OTHER, SELFPAY ==
--- NOTE | ~2025-02-09 | XR_ITS ---
EXAMINATION: XR FOOT, RIGHT CLINICAL INFORMATION: M79.674 - Pain in right toe(s); superficial ulcer base of second toe. Pain. COMPARISON: None available. TECHNIQUE: AP, lateral, and oblique views of the right foot. FINDINGS: There is no fracture, dislocation, or suspicious bone lesion. There are no permeative bone changes to suggest radiographic changes of osteomyelitis. Severe osteoarthrosis of the first MTP joint, and moderate degenerative changes of the second. Joint spaces otherwise preserved. No soft tissue abnormality. No soft tissue emphysema or radiopaque foreign body. XR/XR foot RT 2V IMPRESSION: 1. No radiographic evidence of osteomyelitis. No soft tissue emphysema. 2. Severe osteoarthrosis first MTP joint. Electronically signed by: Justino Boateng MD 02/09/2025 12:13 PM EDT
== END 2025-02-09 10:47 | disposition home or self-care (01) ==
LOC: HO.XRAY 10:46
PROVIDERS: Absent Provider Internal Medicine Endocrinology, Diabetes & Metabolism; PCP Internal Medicine; Visit Provider Internal Medicine
DX: M81.0 Age-related osteoporosis without current pathological fracture (principal); M79.674 Pain in right toe(s); G62.9 Polyneuropathy, unspecified; L97.509 Non-pressure chronic ulcer of other part of unspecified foot with unspecified severity; R73.01 Impaired fasting glucose; I10 Essential (primary) hypertension; E78.00 Pure hypercholesterolemia, unspecified; Z79.899 Other long term (current) drug therapy
CPT/HCPCS: 36415; 73620; 82306; 96127; 99212

== ENCOUNTER 2025-02-09 10:46 | Outpatient (AMB) | payer OTHER, SELFPAY ==
--- NOTE | 2025-02-09 10:48 | A.OFFPC_ITS ---
Vital Signs 02/09/25 10:49 Height 5 ft 9 in Weight 201 lb 2 oz BMI 29.7 BP 156/92 H Blood Pressure Location Lt brachial Position Sitting Pulse 105 H Pulse Source Pulse Oximeter Temp 97.5 F Temp Source Temporal Artery Scan Pulse Oximetry (%) 93 Oxygen Delivery Method Room Air Intake Visit Reasons: neuropathy right foot blister/sugar Allergies moxifloxacin (From AVELOX) Allergy (Severe, Verified 02/09/25 11:15) SEVERE MOUTH/GENITAL SORES, swelling nitrofurantoin (NITROFURANTOIN) Allergy (Intermediate, Verified 02/09/25 11:15) BLOATING, bloated amlodipine Adverse Reaction (Intermediate, Verified 02/09/25 11:15) leg swelling metoprolol Adverse Reaction (Intermediate, Verified 02/09/25 11:15) Nausea and Vomiting SEASONAL ALLERGIES Allergy (Mild, Uncoded 02/09/25 11:15) RUNNY NOSE Medication List - Last Reconciled 02/09/25 by Shane Wall MD abaloparatide (Tymlos) 80 mcg subcut DAILY amlodipine 5 mg PO DAILY atorvastatin 10 mg PO BEDTIME calcium citrate-vitamin D3 315 mg-5 mcg (200 unit) 2 tabs PO BID 90 days chlorhexidine gluconate 0.12% 15 mL buccal BID 15 days fluticasone propionate 50 mcg/actuation 2 sprays intranasal DAILY fluticasone propionate 110 mcg/actuation 2 puffs inhalation BID folic acid 1 mg PO DAILY ipratropium-albuterol 20-100 mcg/actuation (Combivent Respimat) 1 puff inhalation Q6H lisinopril 40 mg PO DAILY methylphenidate HCl 20 mg PO TID PRN needle (disp) 18 G (BD Regular Bevel [place]) As directed - draw up testosterone needle (disp) 25 gauge (BD Regular Bevel [place]) As directed - for testosterone subcutaneous injection pen needle, diabetic (BD Ultra-Fine Short Pen Needle) As directed once daily sildenafil 100 mg PO DAILY PRN 30 days syringe (disposable) (BD Luer-Sorin Syringe) Testosterone injection weekly tadalafil 5 mg PO DAILY 90 days testosterone cypionate (Depo-Testosterone) 80 mg (0.4 mL) subcut QWEEK 4 weeks thiamine HCl (vitamin B1) (Vitamin B-1) 100 mg PO DAILY Tobacco use date assessed: 02/09/25 Dental Screening Dental Screen Date: 02/09/25 Did you have a dental visit in the last 12 months?: Yes Did you have a dental problem in the last 6 months where you did not have access to dental care?: No Was dental information given to patient?: Patient has dentist HPI neuropathy right foot blister/sugar HPI Details Patient is a 64-year-old male presenting with neuropathy and an ulcer on the right foot. - Neuropathy: Reports tingling and woods bite-like sensations in the right foot for four weeks. - Ulcer on foot: Blister present for two weeks, mild pain, no infection He also has a few other chronic issues that are being addressed by his PCP - Elevated liver enzymes: History of rolo vated levels, trending downwards. - Borderline elevated A1c: Recorded at 6 .1. - Hypertension: Managed with amlodipine and lisinopril. - Hyperlipidemia: Managed with atorvasta tin. Needs a couple of his Rx refilled PFSH Medical History Allergies Vitamin D deficiency Hypogonadism male Numbness of left hand Trigger finger of right hand Rupture of left biceps tendon Right rib fracture Tibial plateau fracture, right Hypogonadism BPH (benign prostatic hyperplasia) Osteoporosis Erectile dysfunction Diverticulitis Cholelithiasis Hypertension Hypercholesterolemia Fatty liver Polysubstance abuse Asthma Gout Surgical History History of carpal tunnel surgery H/O colonoscopy Hx of arthroscopy of left knee Hx of umbilical hernia repair Hx of right knee surgery History of surgery on arm H/O knee surgery Ankle fracture, right Family History Mother Breast cancer Father Skin cancer Hypercholesterolemia Sister Depression Mental health disorder Social History Housing: Apartment Alcohol intake: current Alcohol intake frequency: 0-2 drinks per day Patient Tobacco Use Status: Never used Tobacco Tobacco use type: Cigarette e-Cigarette/Vaping Use: Never Used Second Hand Smoke Exposure: No service: No Current occupational status: disabled Cognitive needs: No Hearing needs: No Vision needs: No Questionnaire PHQ-9 Over the last 2 weeks, how often have you been bothered by any of the following problems? 1. Little interest or pleasure in doing things: several days 2. Feeling down, depressed, or hopeless: several days 3. Trouble falling or staying asleep, or sleeping too much: more than half the days 4. Feeling tired or having little energy: several days 5. Poor appetite or overeating: more than half the days 6. Feeling bad about yourself - or that you are a failure or have let yourself or your family down: several days 7. Trouble concentrating on things, such as reading the newspaper or watching television: several days 8. Moving or speaking so slowly that other people could have noticed. Or the opposite - being so fidgety or restless that you have been moving around a lot more than usual: not at all 9. Thoughts that you would be better off or of hurting yourself in some way: not at all Total score: 9 Depression Screening Interpretation: Positive Depression Screening Follow-up: Existing condition and Follow-up Visit Requested Depression Screening Done: Yes 20298 - PHQ-9 Billing: Yes Source: Developed by Drs. Eliud Proctor, Christine Trinh, Reinaldo Henry and colleagues, with an educational yanely from [employer]. Thrive Questionnaire Date Thrive assessed: 10/09/24 I am a: Patient What is your living situation today?: I have a steady place to live Within the past 12 months, did the food you bought not last and you didn't have the money to get more?: Never true Within the past 12 months, did you worry whether your food would run out before you got money to buy more?: Sometimes True Do you have trouble paying for medicines?: No Do you have trouble getting transportation to medical appointments?: No Do you have trouble paying your heating and electricity bill?: Yes Do you have trouble taking care of your child, family member or friend?: No Do you have trouble with day-to-day activities such as bathing, preparing meals, shopping, managing finances, etc.?: Yes Are you currently unemployed and looking for a job?: No Are you interested in more education?: No Please select the resources that you would like help with: Food and Utilities Currently or been in a relationship where the following occur: No concerns reported THRIVE Score: 2 AUDIT C Alcohol Use Questionnaire (AUDIT-C) 1. How often do you have a drink containing alcohol?: 4 or more times a week 2. How many drinks containing alcohol do you have on a typical day when you are drinking?: 1 or 2 3. How often do you have six or more drinks on one occasion?: Less than monthly Total Score: 5 Score Reviewed/Action Taken: Yes KRISHAN-7 AMB Questionnaire KRISHAN-7 Date KRISHAN - 7 assessed: 10/09/24 Feeling nervous, anxious, or on edge: 1 = Several days Not being able to stop or control worryin = Not at all Worrying too much about different things: 0 = Not at all Trouble relaxin = Not at all Being so restless that it is hard to sit still: 0 = Not at all Becoming easily annoyed or irritable: 0 = Not at all Feeling afraid as if something awful might happen: 0 = Not at all Total KRISHAN-7 score (0-4 normal; 5-9 mild; 10-14 moderate; 15-21 severe): 1 Source: Developed by Drs. Eliud Proctor, Christine Trinh, Reinaldo Henry and colleagues, with an educational yanely from [employer]. Review of Systems Const Denies chills, Denies fatigue, Denies fever(s) and Denies headache(s) ENT Denies dysphagia, Denies dizziness, Denies otalgia, Denies headache(s), Denies neck pain, Denies odynophagia and Denies sore throat Card Denies chest pain, Denies palpitations and Denies dyspnea Resp Denies chest congestion, Denies cough and Denies dyspnea GI Denies abdominal pain, Denies constipation, Denies dysphagia, Denies heartburn, Denies diarrhea, Denies nausea, Denies odynophagia and Denies vomiting Denies difficulty urinating, Denies dysuria, Denies nocturia and Denies urinary frequency Musc Denies back pain, Denies arthralgias, Denies neck pain, Reports numbness (of the left foot, on and off) and Reports tingling (of the left foot, on and off) Skin/Breast Details: (+) small non-draining ulcer on the plantar aspect of the right first toe Denies rash Neuro Reports as per HPI, Denies dizziness, Denies headache(s), Reports numbness (of the left foot, on and off) and Reports tingling (of the left foot, on and off) Endo Denies fatigue and Denies palpitations Physical exam (Primary Care) Vital Signs: Last Vital Signs Temp 97.5 F 02/09/25 10:49 Pulse 105 H 02/09/25 10:49 BP 156/92 H 02/09/25 10:49 Pulse Ox 93 02/09/25 10:49 Oxygen Delivery Method Room Air 02/09/25 10:49 BMI result Body Mass Index 29.7 Tobacco/Smoking Status: Tobacco use Status Tobacco use date assessed 02/09/25 02/09/25 11:01 Patient Tobacco Use Status Never used Tobacco 02/09/25 11:01 Tobacco use type Cigarette 02/09/25 11:01 e-Cigarette/Vaping Use Never Used 02/09/25 11:01 PHQ-9: PHQ-9 Score PHQ-9: Total score 9 02/09/25 11:34 Depression Screening Interpretation: Positive Depression Screening Follow-up: Existing condition and Follow-up Visit Requested Thrive Assessment: Date of Thrive Assessment Date Thrive assessed 10/09/24 02/09/25 11:01 Currently or been in a relationship where the following occur: No concerns reported Const General: no acute distress and alert HENMT Throat: Yes posterior oropharynx normal and Yes tonsils normal (no TP congestion) Neck Neck: Yes supple and No lymphadenopathy Thyroid: Thyroid normal Resp Auscultation: clear to auscultation bilaterally, no rales and no wheezes Cardio Rate: regular rate Rhythm: regular rhythm Heart sounds: no murmurs GI Palpation (GI): Soft to palpation and nontender Auscultation: normal bowel sounds General: Yes no CVA tenderness Back/Spine/Pelvis Back: no CVA tenderness Thoracic/Lumbar Spine: No lumbar spinal tenderness Skin Rashes: no rashes Extrem Other: (+) small, superficial, non-draining ulcer on the plantar aspect of the right great (first) toe General: Yes no clubbing, cyanosis or edema Coding Level of Care Code Est Pt Level 4 (34580) Diagnoses Neuropathy G62.9 Ulcer of foot L97.509 Elevated LFTs R79.89 Impaired fasting blood sugar R73.01 Essential hypertension I10 Hypertension type: essential hypertension Hypercholesterolemia E78.00 Additional Codes PHQ-9 - 09962 - PHQ-9 Billing: Yes ([id number]) Assessment & Plan Assessment & Plan (1) Neuropathy: Code(s): G62.9 - Polyneuropathy, unspecified Category: Medical (2) Ulcer of foot: Code(s): L97.509 - Non-pressure chronic ulcer of other part of unspecified foot with unspecified severity Category: Medical (3) Elevated LFTs: Code(s): R79.89 - Other specified abnormal findings of blood chemistry Category: Medical (4) Impaired fasting blood sugar: Code(s): R73.01 - Impaired fasting glucose Category: Medical (5) Hypertension: Code(s): I10 - Essential (primary) hypertension Category: Medical Qualifiers: Hypertension type: essential hypertension Qualified Code(s): I10 - Essential (primary) hypertension (6) Hypercholesterolemia: Code(s): E78.00 - Pure hypercholesterolemia, unspecified Category: Medical Plan Patient was informed and verbally consented to the use of an ambient scribe for clinic note documentation during this visit. A/P: 1. Neuropathy - Will send patient for nerve conduction studies and EMG of the lower extremities for further evaluation - Monitor symptoms. 2. Ulcer On Foot - Monitor for infection. - Apply antibiotic ointment. - Will consider referring him to wound clinic if his ulcer worsens. - For now, will send him for x-rays of the right first toe for further evaluation 3. Elevated Liver Enzymes - Monitor liver enzymes. - Reduce alcohol and lose weight. 4. Borderline Elevated A1c - Monitor blood sugar and repeat A1c. 5. Hypertension - Continue amlodipine and lisinopril. 6. Hyperlipidemia - Continue atorvastatin. Discussion Notes I discussed with the patient the importance of monitoring the ulcer on the foot for any signs of infection or worsening. We talked about applying antibiotic ointment and covering it with a bandage at night. I also explained the need for nerve conduction studies to evaluate the neuropathy and the importance of managing blood sugar levels and liver enzymes. We agreed to continue the current medication regimen for hypertension and hyperlipidemia. Follow-up appointments and potential referrals to specialists were also discussed. Patient Instructions - Monitor the ulcer for signs of infection or worsening. - Apply antibiotic ointment at night and cover with a bandage. - Continue taking prescribed medications for blood pressure and cholesterol. - Reduce alcohol consumption and aim for weight loss. - Schedule and attend nerve conduction studies. Follow-up with PCP as scheduled in May 2025 Orders: Orders XR foot RT 2V 02/09/25 M79.674 - Pain in right toe(s) NE electromyogram (EMG) 02/09/25 R20.0 - Anesthesia of skin, R20.2 - Paresthesia of skin NE nerve conduction velocity 02/09/25 R20.0 - Anesthesia of skin, R20.2 - Paresthesia of skin Medications: New mupirocin 2% ([place]) 1 appl topical TID 22 grams 1RF Refilled thiamine HCl (vitamin B1) (Vitamin B-1) 100 mg PO DAILY 90 tabs 3RF fluticasone propionate 110 mcg/actuation 2 puffs inhalation BID 12 grams 5RF J45.909 - Unspecified asthma, uncomplicated
[2025-02-09 10:49] VITALS: BP 156/92; PULSE 105; TEMP 36.4; O2SAT 93; BMI 29.7
== END 2025-02-09 11:34 | disposition home or self-care (01) ==
LOC: HO.HMCH 10:47
PROVIDERS: PCP Internal Medicine; Visit Provider Internal Medicine
DX: G62.9 Polyneuropathy, unspecified (principal); L97.509 Non-pressure chronic ulcer of other part of unspecified foot with unspecified severity; R79.89 Other specified abnormal findings of blood chemistry; R73.01 Impaired fasting glucose; I10 Essential (primary) hypertension; E78.00 Pure hypercholesterolemia, unspecified

== ENCOUNTER → 2025-02-09 11:53 | Outpatient (BNV) | payer OTHER, SELFPAY | PROVIDERS: Absent Provider Internal Medicine Endocrinology, Diabetes & Metabolism; PCP Internal Medicine; Visit Provider Radiology Diagnostic Radiology | DX: M19.071 Primary osteoarthritis, right ankle and foot (principal) | CPT/HCPCS: 73620 ==

== ENCOUNTER 2025-03-23 10:05 | Outpatient (REF) | payer OTHER, SELFPAY ==
--- NOTE | 2025-03-23 10:07 | EMG_ITS ---
Chief complaint: Numbness and tingling of both feet Reason for referral: Anesthesia of skin, Paresthesia of skin Referred by:?Shane Patrick Procedure done: Bilateral lower extremities NCS/EMG Bilateral tibial and peroneal motor studies were performed with F responses. Tibial H reflexes were obtained. Bilateral superficial peroneal and right sural response was obtained. Paraspinals were tested with a needle. This test was somewhat limited because patient was to anxious and uncomfortable with the test. Right peroneal motor amplitude were moderately reduced while on the left side it was mildly reduced. Conduction velocities were mostly borderline in tibial and peroneal responses. Right sural and superficial peroneal amplitude were reduced with borderline normal conduction velocity. Motor distal latencies were slightly prolonged. Impression: Mild, somewhat patchy, sensory motor peripheral neuropathy MTDD
== END 2025-03-23 10:06 | disposition home or self-care (01) ==
LOC: HO.NEURO 10:05
PROVIDERS: PCP Internal Medicine; Visit Provider Internal Medicine
DX: R20.0 Anesthesia of skin (principal); R20.2 Paresthesia of skin
CPT/HCPCS: 95886; 95911

== ENCOUNTER → 2025-03-23 10:07 | Outpatient (BNV) | payer OTHER, SELFPAY | PROVIDERS: PCP Internal Medicine; Visit Provider Psychiatry & Neurology Neurology | DX: R20.2 Paresthesia of skin (principal) | CPT/HCPCS: 95886; 95911 ==

== ENCOUNTER 2025-04-09 09:26 | Outpatient (REF) | payer OTHER, SELFPAY ==
[2025-04-09 12:42] LABS: Appearance Urine Clear; Glucose Urine UA Negative (Negative); PH 7.0 (5.0-9.0); Specific Gravity - Urine 1.010 (1.005-1.025)
== END 2025-04-09 09:27 | disposition home or self-care (01) ==
LOC: HO.10HDLNP 09:26
PROVIDERS: Visit Provider Internal Medicine
DX: R30.0 Dysuria (principal); M54.50 Low back pain, unspecified
CPT/HCPCS: 81003

== ENCOUNTER 2025-04-29 08:07 | Outpatient (AMB) | payer OTHER, SELFPAY ==
[2025-04-29 08:16] VITALS: BP 152/90; PULSE 79; O2SAT 96; BMI 37.0
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
== END 2025-04-29 08:36 | disposition home or self-care (01) ==
LOC: HO.ENCR 08:08
PROVIDERS: PCP Internal Medicine; Visit Provider Internal Medicine Endocrinology, Diabetes & Metabolism
DX: M81.0 Age-related osteoporosis without current pathological fracture (principal)
CPT/HCPCS: 99213

== ENCOUNTER → 2025-04-29 08:07 | Outpatient (BNVA) | payer OTHER, SELFPAY | PROVIDERS: PCP Internal Medicine; Visit Provider Internal Medicine Endocrinology, Diabetes & Metabolism | DX: M81.0 Age-related osteoporosis without current pathological fracture (principal) | CPT/HCPCS: 99212 ==

== ENCOUNTER 2025-05-10 11:58 | Outpatient (REF) | payer OTHER, SELFPAY ==
[2025-05-10 16:25] LABS: Anion Gap 12 (12-20); Blood Urea Nitrogen 12 mg/dL (9-16); Calcium 9.9 mg/dL (8.4-10.2); Carbon Dioxide 28 mmol/L (22-29); Chloride 102 mmol/L (96-108); Estimated Glomerular Filt Rate > 60; Potassium 4.3 mmol/L (3.3-5.1); Sodium 138 mmol/L (135-145)
== END 2025-05-10 11:59 | disposition home or self-care (01) ==
LOC: HO.10HDL 11:58
PROVIDERS: Visit Provider Internal Medicine Endocrinology, Diabetes & Metabolism
DX: M81.0 Age-related osteoporosis without current pathological fracture (principal)
CPT/HCPCS: 36415; 80048

== ENCOUNTER 2025-05-19 09:06 | Outpatient (AMB) | payer OTHER, SELFPAY ==
[2025-05-19 09:10] VITALS: BP 136/72; PULSE 84; O2SAT 98; BMI 28.4
--- NOTE | 2025-05-19 09:10 | A.OFFPC_ITS ---
Vital Signs 05/19/25 09:10 Height 5 ft 9 in Weight 192 lb BMI 28.4 BP 136/72 Blood Pressure Location Lt brachial Position Sitting Pulse 84 Pulse Source Pulse Oximeter Pulse Oximetry (%) 98 Oxygen Delivery Method Room Air Intake Visit Reasons: HTN follow up 3 months Allergies moxifloxacin (From AVELOX) Allergy (Severe, Verified 05/19/25 09:10) SEVERE MOUTH/GENITAL SORES, swelling nitrofurantoin (NITROFURANTOIN) Allergy (Intermediate, Verified 05/19/25 09:10) BLOATING, bloated amlodipine Adverse Reaction (Intermediate, Verified 05/19/25 09:10) leg swelling metoprolol Adverse Reaction (Intermediate, Verified 05/19/25 09:10) Nausea and Vomiting SEASONAL ALLERGIES Allergy (Mild, Uncoded 05/19/25 09:10) RUNNY NOSE Medication List - Last Reconciled 05/19/25 by Lillian Atkinson MD amlodipine 10 mg PO DAILY atorvastatin 10 mg PO BEDTIME calcium citrate-vitamin D3 315 mg-5 mcg (200 unit) 2 tabs PO BID 90 days fluticasone propionate 50 mcg/actuation 2 sprays intranasal DAILY fluticasone propionate 110 mcg/actuation 2 puffs inhalation BID folic acid 1 mg PO DAILY ipratropium-albuterol 20-100 mcg/actuation (Combivent Respimat) 1 puff inhalation Q6H lisinopril 40 mg PO DAILY multivitamin 1 tab PO DAILY mupirocin 2% (Centany) 1 appl topical TID needle (disp) 18 G (BD Regular [place] [place]) As directed - draw up testosterone needle (disp) 25 gauge (BD Regular [facility] [place]) As directed - for testosterone subcutaneous injection omeprazole 20 mg PO DAILY pen needle, diabetic As directed once daily sildenafil 100 mg PO DAILY PRN 30 days syringe (disposable) (BD Luer-Sorin Syringe) Testosterone injection weekly tadalafil 5 mg PO DAILY 90 days testosterone cypionate (Depo-Testosterone) 80 mg (0.4 mL) subcut QWEEK 4 weeks thiamine HCl (vitamin B1) (Vitamin B-1) 100 mg PO DAILY Tobacco use date assessed: 02/09/25 Dental Screening Dental Screen Date: 02/09/25 HPI HTN follow up 3 months HPI Details PAteint still has a lot of back pain. concern on renal calculi. HPI Comments History of Present Illness Details History of Present Illness The patient is a 64 year old individual presenting for follow-up of multiple ronic conditions, including obesity, asthma, hypercholesterolemia, gout, hypertension, polysubstance abuse, BPH, osteoporosis, tubular adenoma of the colon, generalized anxiety disorder, impaired glucose tolerance, hepatic steatosis, and interstitial lung disease. The patient's primary presenting complaint is severe back and rib pain, described as feeling like being hit with a baseball bat. The pain is debilitating, impacting sleep and movement, to the point of being unable to sit, stand, or lie down for long periods. The patient uses oxycodone 0-1 times per day for pain. A right L3-L5 medial branch block for lumbar facet arthropathy in April was not effective. An MRI of the spine was performed last week with results pending, and the patient has a referral to [facility] for further evaluation of the hip and spine. There is a pending workup for kidney stones with a CT or ultrasound ordered in March; a urinalysis from April 09 was negative for blood. Regarding osteoporosis, the patient had the last bone density scan in July 2023 and is scheduled for another next July. The patient was previously on Tymlos but stopped it due to associated joint pain and is now awaiting insurance approval for Reclast, having had the first infusion in 2021. The patient follows with endocrinology for this condition. The patient has a 20-year history of hypogonadism, previously treated with AndroGel and now on testosterone injections. The patient is followed by urology and has also been prescribed sildenafil and tadalafil. For impaired glucose tolerance, the last hemoglobin A1c in December 2024 was elevated at 6.1%, an increase from prior readings. The patient attributes this to a period of illness where the patient's diet consisted only of fruit. The fasting blood sugar was 101 on a January 04 lab draw. The patient has a diagnosis of peripheral neuropathy, confirmed by nerve conduction studies, presenting as numbness and tingling. Symptoms have reportedly improved since stopping Tymlos and Adderall. The patient had a right great toe ulcer in January, which has since resolved; an X-ray at that time showed severe osteoarthritis but no osteomyelitis. Past medical history is also significant for tubular adenoma of the colon, with the last colonoscopy in February 2023. In the past, the patient experienced low sodium and magnesium levels, which occurred after starting three new medications from different doctors, leading to poor oral intake for months. The patient reports a history of altered bowel habits with alternating constipation and diarrhea. Health Maintenance The patient will continue to follow up with urology for BPH and hypogonadism. Follow-up labs including A1c, PSA, and liver function tests will be ordered in three months. The patient was strongly counseled on 'clean living,' emphasizing a healthy diet, adequate hydration, regular movement, and significant reduction or cessation of alcohol. Social History - Substance Use: History of polysubstanc e abuse. - Alcohol Use: The patient reports drink ing - hardly any alcohol but also states co nsumption of up to two drinks a day, though not every day. - Other Substances: The patient recently stopped taking ADHD medication (Adderall). - Functional Status: Mobility is signifi cantly impaired by chronic back pain, with the patient reporting being unable to move, sleep, or perform daily activities on some days and uses a cane. - Nutrition: Reports a period of not eat ing for 2-3 months in the past while on new medications. - Appetite has improved since stopping A dderall. - The patient takes a men's 50+ multivit christiansen every other day. Results - Labs: - Urinalysis (April 09): Negative for blood. - Blood work (January 04): Normal blood cou nt, electrolytes, and renal function. - Blood sugar was 101. - Hemoglobin A1c (December 2024): 6.1%. - Imaging and Tests: - Colonoscopy (February 2023): Tubular adenoma. - Bone Density (July 2023): Osteopor osis. - Right Foot X-ray (January): Severe oste oarthritis, no evidence of osteomyelitis. - Nerve Conduction Study: Findings consi stent with mild peripheral neuropathy, with prolonged distal latencies of the left peroneal and tibial nerves. - Procedures: - Right L3-L5 Medial Branch Block (Novem keo 12): Performed for lumbar facet arthropathy. [facility] Medical History (Updated 05/19/25 @ 09:39 by Lillian Atkinson MD) Low back pain Diverticulosis of colon History of colon polyps Colon cancer screening Elevated blood sugar Allergies Vitamin D deficiency Hypogonadism male Numbness of left hand Trigger finger of right hand Rupture of left biceps tendon Right rib fracture Tibial plateau fracture, right Hypogonadism BPH (benign prostatic hyperplasia) Osteoporosis Erectile dysfunction Diverticulitis Cholelithiasis Hypertension Hypercholesterolemia Fatty liver Polysubstance abuse Asthma Gout Surgical History History of carpal tunnel surgery H/O colonoscopy Hx of arthroscopy of left knee Hx of umbilical hernia repair Hx of right knee surgery History of surgery on arm H/O knee surgery Ankle fracture, right Family History Mother Breast cancer Father Skin cancer Hypercholesterolemia Sister Depression Mental health disorder Social History Housing: Apartment Alcohol intake: current Alcohol intake frequency: 0-2 drinks per day Patient Tobacco Use Status: Never used Tobacco Tobacco use type: Cigarette e-Cigarette/Vaping Use: Never Used Second Hand Smoke Exposure: No service: No Current occupational status: disabled Cognitive needs: No Hearing needs: No Vision needs: No Questionnaire Thrive Questionnaire Date Thrive assessed: 02/09/25 I am a: Patient What is your living situation today?: I have a steady place to live Within the past 12 months, did the food you bought not last and you didn't have the money to get more?: Never true Within the past 12 months, did you worry whether your food would run out before you got money to buy more?: Sometimes True Do you have trouble paying for medicines?: No Do you have trouble getting transportation to medical appointments?: No Do you have trouble paying your heating and electricity bill?: Yes Do you have trouble taking care of your child, family member or friend?: No Do you have trouble with day-to-day activities such as bathing, preparing meals, shopping, managing finances, etc.?: Yes Are you currently unemployed and looking for a job?: No Are you interested in more education?: No Currently or been in a relationship where the following occur: No concerns reported THRIVE Score: 2 KRISHAN-7 AMB Questionnaire KRISHAN-7 Date KRISHAN - 7 assessed: 10/09/24 Feeling nervous, anxious, or on edge: 1 = Several days Not being able to stop or control worryin = Several days Worrying too much about different things: 1 = Several days Trouble relaxin = More than half the days Being so restless that it is hard to sit still: 1 = Several days Becoming easily annoyed or irritable: 2 = More than half the days Feeling afraid as if something awful might happen: 1 = Several days Total KRISHAN-7 score (0-4 normal; 5-9 mild; 10-14 moderate; 15-21 severe): 9 Source: Developed by Drs. Eliud Proctor, Christine Trinh, Reinaldo Henry and colleagues, with an educational yanely from [employer]. Review of Systems Narrative Review of Systems - Constitutional: Denies fever. - Reports weight loss. - Respiratory: Denies shortness of breath. - Gastrointestinal: Denies heartburn. - Reports alternating constipation and diarrhea, with a sense of incomplete evacuation. - Genitourinary: Denies dysuria. - Reports unspecified urinary issues. - Musculoskeletal: Reports severe, debilitating pain in the back and ribs, which is worse with movement and lying down. - Reports weak legs. - Reports a history of joint pain associated with Tymlos use. - Skin: Denies rashes. - Neurological: Reports numbness and tingling in the legs, which has improved recently. - Psychiatric: History of generalized anxiety disorder. Physical exam (Primary Care) Vital Signs: Last Vital Signs Pulse 84 05/19/25 09:10 BP 136/72 05/19/25 09:10 Pulse Ox 98 05/19/25 09:10 Oxygen Delivery Method Room Air 05/19/25 09:10 BMI result Body Mass Index 28.4 Tobacco/Smoking Status: Tobacco use Status Tobacco use date assessed 02/09/25 05/19/25 09:17 Patient Tobacco Use Status Never used Tobacco 05/19/25 09:17 Tobacco use type Cigarette 05/19/25 09:17 e-Cigarette/Vaping Use Never Used 05/19/25 09:17 Thrive Assessment: Date of Thrive Assessment Date Thrive assessed 02/09/25 05/19/25 09:17 Currently or been in a relationship where the following occur: No concerns reported Narrative Physical Exam - Vitals: Blood pressure 136/72 mmHg. - Weight 192 lbs. - General: Appears as an obese individual. - Back: No tenderness to palpation over ribs and back. - Skin: No rashes observed on the back. Const General: alert; No acute distress Eyes Conjunctivae: conjunctivae normal Resp Auscultation: clear to auscultation bilaterally Cardio Rate: regular rate Rhythm: regular rhythm GI Inspection: Yes normal to inspection Extrem General: Yes normal to inspection and No edema Coding Level of Care Code Complex visit Add On G2211 Diagnoses Essential hypertension I10 Hypertension type: essential hypertension Hypercholesterolemia E78.00 Impaired fasting blood sugar R73.01 Osteoporosis M81.0 Hypogonadism in male E29.1 Fatty liver K76.0 Lumbar degenerative disc disease M51.36 Right foot ulcer L97.519 Right flank pain R10.A1 Peripheral neuropathic pain M79.2 Assessment & Plan Assessment & Plan (1) Hypertension: Code(s): I10 - Essential (primary) hypertension Category: Medical Qualifiers: Hypertension type: essential hypertension Qualified Code(s): I10 - Essential (primary) hypertension Plan: Continue with blood pressure medication. Decrease salt intake and exercise patient on amlodipine 10 mg once a day lisinopril 40 mg once a day (2) Hypercholesterolemia: Code(s): E78.00 - Pure hypercholesterolemia, unspecified Category: Medical Plan: Avoid fried foods, chicken skin, eggs, butter margarine, pastries and meat. Be it pork or beef they have a lot of cholesterol LDL goal of less than 130 and triglyceride of less than 150 November 2024 last blood work. (3) Impaired fasting blood sugar: Code(s): R73.01 - Impaired fasting glucose Category: Medical Plan: Decrease the amount of carbohydrate intake, pasta, bread, rice and potatoes are all sugar and that is aside from all the sweet stuff, remember that fruits are good but they are Sweet also. November 2024 hemoglobin A1c 6.1. This needs to be monitored (4) Osteoporosis: Comment: Secondary to alcohol abuse, hypogonadism and PPI use, July 2023 Code(s): M81.0 - Age-related osteoporosis without current pathological fracture Category: Medical Plan: Patient is being followed up by endocrinology and planned Reclast (5) Hypogonadism in male: Code(s): E29.1 - Testicular hypofunction Category: Medical Plan: Continue to follow-up with urology on testosterone (6) Fatty liver: Code(s): K76.0 - Fatty (change of) liver, not elsewhere classified Category: Medical Plan: Low-fat diet and exercise (7) Lumbar degenerative disc disease: Comment: MRI February 2023 multilevel lumbar Code(s): M51.36 - Other intervertebral disc degeneration, lumbar region Category: Medical Plan: Patient has been seeing [facility] and in April just had radiofrequency medial branch block (8) Right foot ulcer: Comment: January 2025, resolved Code(s): L97.519 - Non-pressure chronic ulcer of other part of right foot with unspecified severity Category: Medical Plan: resolved (9) Right flank pain: Code(s): R10.A1 - Flank pain, right side Category: Medical (10) Peripheral neuropathic pain: Comment: 03/2025 Mild, somewhat patchy, sensory motor peripheral neuropathy Code(s): M79.2 - Neuralgia and neuritis, unspecified Category: Medical Plan Plan Patient was informed and verbally consented to the use of an ambient scribe for clinic note documentation during this visit. 1. Chronic Back And Rib Pain The patient presents with severe, debilitating back and rib pain, limiting mobility and sleep. A recent radiofrequency medial branch block was ineffective. An MRI of the spine was recently performed, and the patient will follow up for results on Saturday. Kidney stones are being considered, and an in-office urinalysis will be performed today to check for hematuria, though a prior UA was negative. A muscle relaxant was prescribed to be taken as needed for symptomatic relief. The patient was advised to perform regular stretching exercises. 2. Osteoporosis The patient has a known diagnosis of osteoporosis and follows with endocrinology. The patient previously discontinued Tymlos due to joint pain. The patient is awaiting insurance approval for the next Reclast infusion. A prescription for calcium and vitamin D, 2 tablets twice a day, was refilled and sent to the patient's pharmacy. Continue to monitor with bone density scans; the next is scheduled for July. 3. Impaired Glucose Tolerance The patient's hemoglobin A1c has increased to 6.1% as of December, indicating a need for close monitoring. The plan is to repeat the A1c and other labs in three months. Continued reinforcement of lifestyle modifications, including a healthy diet and exercise, was provided. 4. Hypertension The patient's blood pressure is well-controlled at 136/72 mmHg on the current regimen. Continue amlodipine 10 mg once daily and lisinopril 40 mg once daily. 5. Hypercholesterolemia The patient is on atorvastatin for cholesterol management. The treatment goal is an LDL less than 130 and triglycerides less than 150. A lipid panel will be rechecked in three months. Continue low-fat diet. 6. Peripheral Neuropathy Nerve conduction studies confirmed mild peripheral neuropathy. Symptoms have reportedly improved since stopping certain medications. The patient was counseled that alcohol is toxic to nerves and should be discontinued to prevent progression. 7. Altered Bowel Habits The patient reports alternating constipation and diarrhea. Advised daily use of Metamucil, which the patient already has, and to ensure adequate daily water intake (6-8 glasses) to promote bowel regularity. Discussion Notes I reviewed with the patient that nerve conduction studies confirmed a diagnosis of mild peripheral neuropathy. I explained that while there is no curative treatment, symptoms can be managed, and I noted that alcohol is toxic to the nerves and continued use will worsen the condition. We discussed the severe back and rib pain, and I acknowledged the ineffectiveness of the recent radiofrequency block. I informed the patient that we will perform a urinalysis today to help evaluate for kidney stones while awaiting the results of the recent spine MRI. I prescribed a muscle relaxant for symptomatic relief. I reviewed the patient's rising hemoglobin A1c of 6.1%, which indicates prediabetes, and explained that we will monitor this with labs in three months. We also discussed osteoporosis management, noting that several factors, including long-term omeprazole use, testosterone therapy, and alcohol consumption, can negatively impact bone health. I advised the patient to continue the omeprazole for gastric protection. The patient expressed frustration with navigating multiple health issues and specialists. I acknowledged these challenges and reassured the patient that prior lab abnormalities like low sodium and magnesium have resolved. I stressed the importance of a 'clean living' lifestyle, including healthy diet, hydration, regular movement, and reducing alcohol, as foundational to managing the patient's various health problems. Patient Instructions - Take the new muscle relaxant medication as needed for back pain. - It may cause drowsiness. - I have sent a refill for your Calcium and Vitamin D prescription to the [facility] at [facility]. 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 - It is very important that you significantly cut back or stop drinking alcohol. - Alcohol can harm your nerves, liver, and bones. - Focus on a healthy diet with less red meat and fast food, and more vegetables, chicken, and fish. - Drink about 6 to 8 glasses of water daily. - Use your Metamucil powder every day to help make your bowel movements more regular. - It is important to do gentle stretches and keep moving, even though your back hurts. - Not moving can make the pain and muscle weakness worse. - Please provide a urine sample before you leave the office today. - We will check your blood work again in about three months. - Continue to take your other medications as prescribed, including those for blood pressure and cholesterol. Orders: Orders AMB Urinalysis Automated Today R10.A1 - Flank pain, right side, Z13.9 - Encounter for screening, unspecified Comprehensive Met. Panel 3 Months E78.00 - Pure hypercholesterolemia, unspecified Complete Blood Count Auto Diff 3 Months E78.00 - Pure hypercholesterolemia, unspecified Prostate Specific Antigen Scr 3 Months E78.00 - Pure hypercholesterolemia, unspecified Uric Acid 3 Months E78.00 - Pure hypercholesterolemia, unspecified Hemoglobin A1c 3 Months E78.00 - Pure hypercholesterolemia, unspecified Lipid Panel 3 Months E78.00 - Pure hypercholesterolemia, unspecified Thyroid Stimulating Hormone 3 Months E78.00 - Pure hypercholesterolemia, unspecified Vitamin B12 and Folate 3 Months E78.00 - Pure hypercholesterolemia, unspecified Free T4 (Free Thyroxine) 3 Months E78.00 - Pure hypercholesterolemia, unspecified Testosterone, Total 3 Months E78.00 - Pure hypercholesterolemia, unspecified Magnesium 3 Months E78.00 - Pure hypercholesterolemia, unspecified Medications: New tizanidine 4 mg PO BID PRN 20 tabs 0RF muscle spasticity M54.16 - Radiculopathy, lumbar region Refilled calcium citrate-vitamin D3 315 mg-5 mcg (200 unit) 2 tabs PO BID 360 tabs 2RF 90 days R10.A1 - Flank pain, right side Discontinued abaloparatide (Tymlos) inject into abdomen; do not inject within 2 inches of belly button/navel; rotate sites Discontinued Reason: No Longer Medically Relevant 80 mcg (0.04 mL) subcut DAILY 1.56 mL 6RF
== END 2025-05-19 10:02 | disposition home or self-care (01) ==
LOC: HO.HMCH 09:07
PROVIDERS: PCP Internal Medicine; Visit Provider Internal Medicine
DX: Z13.9 Encounter for screening, unspecified (principal); R10.A1 Flank pain, right side

== ENCOUNTER → 2025-05-19 09:06 | Outpatient (BNVA) | payer OTHER, SELFPAY | PROVIDERS: PCP Internal Medicine; Visit Provider Internal Medicine | DX: M81.0 Age-related osteoporosis without current pathological fracture (principal); R07.89 Other chest pain; M54.9 Dorsalgia, unspecified; E29.1 Testicular hypofunction; I10 Essential (primary) hypertension; R73.01 Impaired fasting glucose; K76.0 Fatty (change of) liver, not elsewhere classified; M51.360 Other intervertebral disc degeneration, lumbar region with discogenic back pain only; L97.519 Non-pressure chronic ulcer of other part of right foot with unspecified severity; R10.A1 Flank pain, right side; M79.2 Neuralgia and neuritis, unspecified | CPT/HCPCS: 81003; 99212 ==

== ENCOUNTER 2025-05-27 10:32 | Outpatient (RCR) | payer OTHER, SELFPAY ==
[2025-05-27 10:51] VITALS: BP 160/85; PULSE 85; RESP 16; TEMP 36.7; O2SAT 96
== END 2025-05-27 12:26 | disposition home or self-care (01) ==
LOC: HO.INF 10:32
PROVIDERS: Visit Provider Internal Medicine Endocrinology, Diabetes & Metabolism
DX: M81.0 Age-related osteoporosis without current pathological fracture (principal)
CPT/HCPCS: 96374; J3489

== ENCOUNTER 2025-06-01 14:37 | Outpatient (REF) | payer OTHER, SELFPAY ==
--- NOTE | ~2025-06-01 | US_ITS ---
EXAMINATION: US KIDNEY BILATERAL HISTORY: M54.50 - Low back pain, unspecified TECHNIQUE: Real-time grayscale ultrasound imaging of the kidneys was performed and images were reviewed. COMPARISON: Correlation is made with an abdominal ultrasound dated 03/02/2020. FINDINGS: Right kidney: The right kidney measures 12.5 x 5.7 x 5.9 cm. Renal parenchymal echotexture and thickness are normal. There are no masses. There is no hydronephrosis or renal calculi. Left Kidney: The left kidney measures 11.5 x 5.4 x 5.2 cm. Renal parenchymal echotexture and thickness are normal. There are no masses. There is no hydronephrosis or renal calculi. US/US renal BI IMPRESSION: Unremarkable renal ultrasound. Electronically signed by: Eliud Gorman MD 06/01/2025 02:59 PM EST[facility]ARDO
== END 2025-06-01 14:38 | disposition home or self-care (01) ==
LOC: HO.HMGCX 14:37
PROVIDERS: PCP Internal Medicine; Visit Provider Internal Medicine
DX: M54.50 Low back pain, unspecified (principal)
CPT/HCPCS: 76775

== ENCOUNTER → 2025-06-01 14:38 | Outpatient (BNV) | payer OTHER, SELFPAY | PROVIDERS: PCP Internal Medicine; Visit Provider Radiology Diagnostic Radiology | DX: M54.50 Low back pain, unspecified (principal) | CPT/HCPCS: 76775 ==